=== PATIENT | male | born 1930 | race Caucasian/White ===

== ENCOUNTER 2016-12-01 15:55 | Emergency (ER) | payer BC ==
[~2016-12-01] VITALS: Ht 162.6 cm; Wt 64.5 kg
[~2016-12-01 15:55] MED LIST: ALBU0.08 INH; ASCA500 PO; ASPI81TA28 PO; CHOL100010 PO; DOXA4TAB2 PO; FLV400 PO; GABA1CAP4 PO; GANC0.15 OPL; GLC500 PO; GLUCTAB54 PO; HYDR-3419 PO; IPRAT-ALBUT INH; ISOS60TA25 PO; LCTX PO; LISI-729 PO; LPR25 PO; MOME50SP5; NTRGSL/4 UT; ONDA4TAB65 PO; S-AD1TAB6 PO; SIMV80TA2 PO; TOBRSUS OPL; TYLOTC500 PO; VALA1TAB31 PO
[2016-12-01 15:58] VITALS: TEMP 36.5; Ht 162.6 cm; Wt 64.5 kg
[2016-12-01 16:50] VITALS: O2SAT 94
[2016-12-01 17:00] LABS: BASO % 0.6 %; BASO ABS # 0.06 K/uL (0-0.2); COMPLETE YES; EOS % 4.2 %; IG% 0.2 %; LYMPH % 30.4 %; LYMPH ABS # 2.83 K/uL (1.2-3.4); MEAN CELL VOLUME 89.4 fL (80-100); MEAN CORPUSCULAR HEMOGLOBIN 32.1 pg (25-34); MEAN CORPUSCULAR HGB CONC 35.9 g/dl (32-36); MEAN PLATELET VOLUME 9.5 fL (7.4-10.4); MONO % 9.5 %; NEUT % 55.1 %; PLATELET COUNT 138 K/uL (130-400); RED BLOOD COUNT 4.92 M/uL (4.7-6.1); WHITE BLOOD COUNT 9.31 K/uL (4.8-10.8)
[2016-12-01 17:09] LABS: PROTHROMBIN TIME (PATIENT) 10.9 SECONDS (9.0-12.0)
--- NOTE | 2016-12-01 17:11 | EMERGENCY ROOM VISIT NOTE ---
History Report prepared by Jaswinder: Bill Persaud Under the Supervision of: Dr. Zane Patel D.O. First contact with patient: 16:27 Chief Complaint: REFERRED BY DOCTOR Stated Complaint: STROKE/HEART ATTACK History of Present Illness The patient is an 86 year old male who presents to the Emergency Room with complaints of intermittent double vision beginning one day prior to arrival. He states he is not currently experiencing diplopia, but his episodes yesterday last 5-10 minutes. The patient associates intermittent central chest pain that does not radiate anywhere with today's symptoms. He states he is currently not experiencing chest pain. The patient notes his double vision persisted even if he tried closing one eye or the other. He denies nausea, vomiting, headache, and neck pain. The patient notes a cough that is a pulmonary issue, a history of a colostomy for a perforation, bilateral cataract surgery, diabetes, hypertension, and heart disease. He states he has braces on his legs due to shrapnel injuries. The patient denies a history of clot problems in his legs or lungs and swelling and leg pain. 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 A total of 10 systems reviewed and were otherwise negative. 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 Surgical Problems: (1) History of cataract surgery Family History FHx: GI cancer Heart disease Social History Smoking Status: Former Smoker Marital Status: Occupation Status: retired Current/Historical Medications Scheduled Ascorbic Acid (Ascorbic Acid), 500 MG PO TID Aspirin (Aspirin Ec), 81 MG PO DAILY Cholecalciferol (Vitamin D3), 1,000 INTER.UNIT PO DAILY Doxazosin Mesylate (Cardura), 4 MG PO DAILY Dutasteride (Dutasteride), 0.5 MG PO DAILY Fish Oil ([place]-3), 1,000 MG PO TID Folic Acid (Folvite), 400 MCG PO DAILY Gabapentin (Gabapentin), 300 MG PO HS Zojcgcvnasz-Dxmhuqljmlg-Fhs C- (Glucosamine Chondroitin), 1 TAB PO BID Isosorbide Mononitrate Ext Rel (Imdur Ext Rel), 60 MG PO DAILY Lactobacillus Acidophilus (Lactinex), 1 TAB PO TIDM Lisinopril (Zestril), 5 MG PO DAILY Metoprolol Tartrate (Lopressor), 12.5 MG PO BID Multivitamin (Multivitamin), 1 TAB PO DAILY S-Adenosylmethionine (Héctor E), 400 MG PO QAM Simvastatin (Zocor), 40 MG PO QPM Tiotropium [place] Monohydrate (Spiriva Respimat), 1 PUFF INH DAILY Tobramycin-Dexamethasone (Tobradex St), 1 DROP OPL QID Valacyclovir Hcl (Valtrex), 1 GM PO TID Scheduled PRN Acetaminophen (Tylenol), 500 MG PO TID PRN for Pain or Fever Albuterol Sulf (Proventil 0.083% 2.5MG/3ML), 2.5 MG INH QID PRN for SOB/Wheezing Ganciclovir Ophthalmic (Zirgan), 1 APPLN OPL TID PRN for Dry Eye Mometasone Furoate (Nasal) (Mometasone Furoate), 2 SPRAYS NA DAILY PRN for Nasal Congestion Nitroglycerin (Nitrostat), 0.4 MG UT UD PRN for Chest Pain Allergies Coded Allergies: Opium (Verified Allergy, Unknown, unknown, 04/13/16) Morphine (Verified Adverse Reaction, Intermediate, CONFUSION, 04/13/16) Physical Exam Vital Signs Date Time Temp Pulse Resp B/P Pulse Ox O2 Delivery O2 Flow Rate FiO2 12/01/16 18:30 67 18 105/58 99 Room Air 12/01/16 17:10 66 12/01/16 17:00 68 18 129/76 97 Room Air 12/01/16 16:50 94 Room Air 12/01/16 16:50 94 Room Air 12/01/16 15:58 36.5 77 18 127/79 95 Room Air Physical Exam GENERAL: Patient is awake, alert, and in no acute distress. Patient is resting comfortably and showing no signs of anxiety EYES: The conjunctivae are clear. The pupils are round and reactive. No nystagmus elicited. EARS, NOSE, MOUTH AND THROAT: The nose is without any evidence of any deformity. Mucous membranes are moist tongue is midline NECK: The neck is nontender and supple. RESPIRATORY: Lung sounds diminished throughout. Scattered rales in all brantley. Mild conversational dyspnea was appreciated. CARDIOVASCULAR: Regular rate and rhythm noted there no murmurs rubs or gallops normal S1 normal S2 GASTROINTESTINAL: The abdomen is soft. Bowel sounds are present in all quadrants. Abdomen is nontender MUSCULOSKELETAL/EXTREMITIES: Braces on both lower extremities consistent with patient's previous history. No deformity. SKIN: Trace pedal edema noted bilaterally. Pulses were symmetric in both lower extremities. There is no obvious evidence of any rash. There are no petechiae, pallor or cyanosis noted. NEUROLOGIC: Patient is awake alert and oriented x3. No facial droop was noted. Strength was symmetric. Medical Decision & Procedures ER Provider Diagnostic Interpretation: Radiology results as stated below per my review and radiologist interpretation: CHEST 2 VIEWS ROUTINE CLINICAL HISTORY: Weakness. COMPARISON STUDY: Chest CT June 13, 2016. FINDINGS: There is no pneumothorax or pleural effusion. Mild cardiomegaly is unchanged. There is no evidence of pulmonary edema. Basilar and peripheral predominant interstitial thickening is noted. No consolidation is identified to suggest superimposed pneumonia. IMPRESSION: 1. No significant change in basilar and peripheral predominant interstitial thickening consistent with interstitial lung disease. This may reflect pulmonary fibrosis. 2. No superimposed consolidation. Electronically signed by: Kyle Quach M.D. 12/01/2016 5:[address] OF THE HEAD WITHOUT CONTRAST CLINICAL HISTORY: Altered mental status. Weakness. Possible stroke. COMPARISON STUDY: MRI of the brain August 10, 2010. CT DOSE: 537.48 mGy.cm TECHNIQUE: Helical axial images of the head were obtained without IV contrast. Automated exposure control was utilized for the study. FINDINGS: No acute intracranial hemorrhage, midline shift or mass effect is present. Ventricular system is normal. Basilar cisterns are patent. There are no extra-axial collections. 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 There are no findings to suggest acute dural sinus thrombosis or acute territorial infarct. White matter hypodensity suggests small vessel disease. There are no significant calvarial abnormalities. There is moderate mucosal thickening of the ethmoid sinuses. IMPRESSION: 1. No acute intracranial findings. 2. Moderate mucosal thickening of the ethmoid sinuses. Electronically signed by: Kyle Quach M.D. 12/01/2016 5:39 PM Laboratory Results 12/01/16 16:54 Red Blood Count 4.92, Mean Corpuscular Volume 89.4, Mean Corpuscular Hemoglobin 32.1, Mean Corpuscular Hemoglobin Concent 35.9, Mean Platelet Volume 9.5, Neutrophils (%) (Auto) 55.1, Lymphocytes (%) (Auto) 30.4, Monocytes (%) (Auto) 9.5, Eosinophils (%) (Auto) 4.2, Basophils (%) (Auto) 0.6, Neutrophils # (Auto) 5.13, Lymphocytes # (Auto) 2.83, Monocytes # (Auto) 0.88, Eosinophils # (Auto) 0.39, Basophils # (Auto) 0.06 12/01/16 16:54 Test 12/01/16 16:54 White Blood Count 9.31 K/uL (4.8-10.8) Red Blood Count 4.92 M/uL (4.7-6.1) Hemoglobin 15.8 g/dL (14.0-18.0) Hematocrit 44.0 % (42-52) Mean Corpuscular Volume 89.4 fL (80-100) Mean Corpuscular Hemoglobin 32.1 pg (25-34) Mean Corpuscular Hemoglobin Concent 35.9 g/dl (32-36) Platelet Count 138 K/uL (130-400) Mean Platelet Volume 9.5 fL (7.4-10.4) Neutrophils (%) (Auto) 55.1 % Lymphocytes (%) (Auto) 30.4 % Monocytes (%) (Auto) 9.5 % Eosinophils (%) (Auto) 4.2 % Basophils (%) (Auto) 0.6 % Neutrophils # (Auto) 5.13 K/uL (1.4-6.5) Lymphocytes # (Auto) 2.83 K/uL (1.2-3.4) Monocytes # (Auto) 0.88 K/uL (0.11-0.59) Eosinophils # (Auto) 0.39 K/uL (0-0.5) Basophils # (Auto) 0.06 K/uL (0-0.2) RDW Standard Deviation 40.4 fL (36.4-46.3) RDW Coefficient of Variation 12.5 % (11.5-14.5) Immature Granulocyte % (Auto) 0.2 % Immature Granulocyte # (Auto) 0.02 K/uL (0.00-0.02) Prothrombin Time 10.9 SECONDS (9.0-12.0) Prothromb Time International Ratio 1.0 (0.9-1.1) Activated Partial Thromboplast Time 25.5 SECONDS (21.0-31.0) Partial Thromboplastin Ratio 1.0 Anion Gap 9.0 mmol/L (3-11) Est Creatinine Clear Calc Drug Dose 37.7 ml/min Estimated GFR () 63.5 Estimated GFR (Non- 54.8 BUN/Creatinine Ratio 22.2 (10-20) Calcium Level 10.1 mg/dl (8.5-10.1) Phosphorus Level 2.6 mg/dl (2.5-4.9) Magnesium Level 2.0 mg/dl (1.8-2.4) Total Bilirubin 0.5 mg/dl (0.2-1) Direct Bilirubin 0.2 mg/dl (0-0.2) Aspartate Amino Transf (AST/SGOT) 20 U/L (15-37) Alanine Aminotransferase (ALT/SGPT) 29 U/L (12-78) Alkaline Phosphatase 65 U/L (45-117) Troponin I < 0.015 ng/ml (0-0.045) Pro-B-Type Natriuretic Peptide 123 pg/ml (0-1800) Total Protein 7.2 gm/dl (6.4-8.2) Albumin 3.5 gm/dl (3.4-5.0) Lipase 340 U/L (73-393) Laboratory results per my review. ECG Indication: other (double vision) Rate (beats per minute): 65 Rhythm: sinus rhythm Findings: 1st degree AV block, LBBB, PVC (no) Comparison ECG Date: 03/27/2011 Change: no significant change ED Course 1631: The patient was evaluated in room B11B. A complete history and physical examination were performed. 1830: Upon reevaluation, the patient is doing well. I discussed the results and treatment plan with him. He verbalized agreement of the treatment plan. The patient was discharged home. Medical Decision Etiologies such as metabolic, infection, hypo/hyperglycemia, electrolyte abnormalities, cardiac sources, intracerebral event, toxicologic, neurologic, as well as others were entertained. Nursing notes reviewed. Additional history is obtained from the patient's significant other. The patient is an 86-year-old male who presented to emergency department for an evaluation of visual difficulties. The patient has been noticing double vision as well as blurry vision which is been intermittent over the last few weeks. The patient saw his primary care physician today and was sent to the emergency department for stroke workup. The patient does not have any symptoms at this time. His CAT scan did not show any acute abnormalities which would explain his symptoms. I discussed the patient's laboratory and radiographic studies with him. He continued to be symptom-free. He was encouraged to call his primary care physician and schedule follow-up appointment as well as other testing such as an MRI the brain. He was also encouraged to continue all medications as prescribed but return to the emergency department immediately if symptoms change worsen or the need arises. Impression Primary Impression: Diplopia Scribe Attestation The scribe's documentation has been prepared under my direction and personally reviewed by me in its entirety. I confirm that the note above accurately reflects all work, treatment, procedures, and medical decision making performed by me. Departure Information Dispostion Home / Self-Care Referrals Amanda Newell M.D. (PCP) Forms HOME CARE DOCUMENTATION FORM, IMPORTANT VISIT INFORMATION, WORK / SCHOOL INSTRUCTIONS Patient Instructions ED Double Vision, My [facility] Additional Instructions Call your family to schedule a follow-up appointment. Rest and avoid any strenuous activity. Continue all medications as prescribed. Return to the emergency department immediately if signs of stroke develop such as difficulty speaking severe headache or difficulty moving arms or legs on one side. Otherwise discussed the possibility with your family doctor in the may require an MRI to further evaluate the cause of your visual problems.
[2016-12-01 17:32] LABS: ALT/SGPT 29 U/L (12-78); AST/SGOT 20 U/L (15-37); BLOOD UREA NITROGEN 27 mg/dl (7-18); BUN/CREATININE RATIO 22.2 (10-20); CALCIUM 10.1 mg/dl (8.5-10.1); CARBON DIOXIDE 25 mmol/L (21-32); CHLORIDE 105 mmol/L (98-107); GLUCOSE 225 mg/dl (70-99); PHOSPHORUS 2.6 mg/dl (2.5-4.9); POTASSIUM 4.2 mmol/L (3.5-5.1); SODIUM 139 mmol/L (136-145)
[2016-12-01 17:36] LABS: ALKALINE PHOSPHATASE 65 U/L (45-117)
--- NOTE | 2016-12-01 17:43 | DIAGNOSTIC IMAGING REPORT ---
CT OF THE HEAD WITHOUT CONTRAST CLINICAL HISTORY: Altered mental status. Weakness. Possible stroke. COMPARISON STUDY: MRI of the brain August 10, 2010. CT DOSE: 537.48 mGy.cm TECHNIQUE: Helical axial images of the head were obtained without IV contrast. Automated exposure control was utilized for the study. FINDINGS: No acute intracranial hemorrhage, midline shift or mass effect is present. Ventricular system is normal. Basilar cisterns are patent. There are no extra-axial collections. 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 There are no findings to suggest acute dural sinus thrombosis or acute territorial infarct. White matter hypodensity suggests small vessel disease. There are no significant calvarial abnormalities. There is moderate mucosal thickening of the ethmoid sinuses. IMPRESSION: 1. No acute intracranial findings. 2. Moderate mucosal thickening of the ethmoid sinuses. Electronically signed by: Kyle Quach M.D. 12/01/2016 5:39 PM Dictated Date/Time: 12/01/2016 5:35 PM
--- NOTE | 2016-12-01 17:55 | DIAGNOSTIC IMAGING REPORT ---
CHEST 2 VIEWS ROUTINE CLINICAL HISTORY: Weakness. COMPARISON STUDY: Chest CT June 13, 2016. FINDINGS: There is no pneumothorax or pleural effusion. Mild cardiomegaly is unchanged. There is no evidence of pulmonary edema. Basilar and peripheral predominant interstitial thickening is noted. No consolidation is identified to suggest superimposed pneumonia. IMPRESSION: 1. No significant change in basilar and peripheral predominant interstitial thickening consistent with interstitial lung disease. This may reflect pulmonary fibrosis. 2. No superimposed consolidation. Electronically signed by: Kyle Quach M.D. 12/01/2016 5:53 PM Dictated Date/Time: 12/01/2016 5:52 PM
[2016-12-01] MEDS ORDERED: MOME6000 (17:58)
[2016-12-01] MEDS ORDERED: GLUCTAB7 PO (17:58)
[2016-12-01] MEDS ORDERED: ALBINS/ INH (17:58)
[2016-12-01] MEDS ORDERED: DUTA1CAP3 PO (17:58)
[2016-12-01] MEDS ORDERED: FOLI400T41 PO (17:58)
[2016-12-01] MEDS ORDERED: TIOT1AER2 INH (17:58)
[2016-12-01] MEDS ORDERED: CHOL1CAP57 PO (17:58)
[2016-12-01] MEDS ORDERED: ASCO500T16 PO (17:58)
[2016-12-01] MEDS ORDERED: GANC0.15 OPL (17:59)
[2016-12-01 18:30] VITALS: BP 105/58; PULSE 67; O2SAT 99
[2016-12-01] MEDS ORDERED: MULT-506 PO (20:28)
[2016-12-01] MEDS ORDERED: OMEG10007 PO (20:28)
== END 2016-12-01 18:40 | disposition home or self-care (01) ==
LOC: C.EDB 15:56
DX: H53.2 Diplopia (principal); R07.9 Chest pain, unspecified; I48.91 Unspecified atrial fibrillation; I11.9 Hypertensive heart disease without heart failure; E11.40 Type 2 diabetes mellitus with diabetic neuropathy, unspecified; E78.5 Hyperlipidemia, unspecified; Z79.899 Other long term (current) drug therapy; Z79.82 Long term (current) use of aspirin; Z87.891 Personal history of nicotine dependence; Z80.0 Family history of malignant neoplasm of digestive organs; Z82.49 Family history of ischemic heart disease and other diseases of the circulatory system

== ENCOUNTER → 2016-12-15 | Outpatient (CLI) | payer BC ==
[~2016-12-15] MED LIST changes: +ALBINS/ INH; -ALBU0.08 INH; -ASCA500 PO; +ASCO500T16 PO; -CHOL100010 PO; +CHOL1CAP57 PO; +DUTA1CAP3 PO; -FLV400 PO; +FOLI400T41 PO; +GADAVIST IV PRN; -GLC500 PO; -GLUCTAB54 PO; +GLUCTAB7 PO; -HYDR-3419 PO; -IPRAT-ALBUT INH; +LISI-789 PO; +LNX125 PO; +MAGN400T5 PO; -MOME50SP5; +MOME6000; +MULT-506 PO; +OMEG10007 PO; -ONDA4TAB65 PO; +TIOT1AER2 INH
--- NOTE | 2016-12-15 13:56 | DIAGNOSTIC IMAGING REPORT ---
Brain MRI WITH AND WITHOUT CONTRAST HISTORY: Dizziness. DIPLOPIA TECHNIQUE: Multiplanar multisequence MRI of the brain was performed both before and after the intravenous administration of contrast. COMPARISON STUDY: Head CT 12/01/2016. Brain MRI 08/10/2010. FINDINGS: There is no mass, hematoma, midline shift, or acute infarct. Partial opacification of the ethmoid air cells. This remains unchanged in the prior head CT. The mastoid or cells are clear. The ventricles and sulci demonstrate mild age-related involutional changes. Scattered foci of T2 hyperintensity seen within the periventricular and subcortical white matter are nonspecific but suggestive of mild microvascular ischemic changes. The major vascular flow voids at the skull base are well-maintained. There is a 3 mm focus of enhancement within the cortex of the right high convexity. No abnormal signal abnormality at this location. Punctate old lacunar infarcts seen within the left cerebellar hemisphere and right basal ganglia. These remain unchanged. IMPRESSION: 1. No acute infarct. 2. A nonspecific 3 mm focus of enhancement within the right high convexity. Follow-up brain MRI in one month is recommended to evaluate for stability/resolution. 3. Ethmoid sinus disease, unchanged. Electronically signed by: Torin Avendaño M.D. 12/15/2016 1:54 PM Dictated Date/Time: 12/15/2016 1:43 PM
== END | disposition home or self-care (01) ==
LOC: C.MRIBC 12:27
PROVIDERS: ATTEND Family Medicine
DX: H53.2 Diplopia (principal); J32.2 Chronic ethmoidal sinusitis

== ENCOUNTER → 2016-12-25 | Outpatient (CLI) | payer BC ==
[~2016-12-25] MED LIST changes: -GADAVIST IV PRN
--- NOTE | 2016-12-25 16:42 | DIAGNOSTIC IMAGING REPORT ---
MR ANGIOGRAM OF THE BRAIN CLINICAL HISTORY: Diplopia. COMPARISON STUDY: MRI of the brain dated 12/15/2016. TECHNIQUE: 3-D [id number] MR angiography of the intracranial circulation is performed. 3-D tumble views are created and assessed. IV contrast was not administered for this examination. FINDINGS: The internal carotid arteries are widely patent bilaterally, as are the anterior and middle cerebral arteries. The vertebrobasilar system and posterior cerebral arteries are widely patent. The vertebral arteries are codominant. There is no aneurysm, high-grade stenosis, or focal vessel cutoff seen throughout the intracranial circulation. The brain parenchyma is normal as visualized. IMPRESSION: Unremarkable MR angiogram of the brain. Electronically signed by: José Miguel Yanez M.D. 12/25/2016 4:41 PM Dictated Date/Time: 12/25/2016 4:39 PM
--- NOTE | 2016-12-29 13:18 | CODING QUERY MEDICAL NECESSITY ---
SUPPORTING DIAGNOSIS NEEDED A supporting diagnosis is required for the test/procedure performed on this patient in order for us to be reimbursed by the patient's insurance. Please provide a supporting diagnosis for the following test/procedure listed below next to the test name along with your signature. *If there is no additional diagnosis for this patient that would support the following test/procedure please document that below next to the test/procedure. Test(s)/Procedure(s) that require a supporting diagnosis: * MRA HEAD W/O CONTRAST DIAGNOSIS: * DOS: 12/25/16 Provider Signature: Date: Thank you Coby Birch Health Information Management Once completed, please kindly fax back to [phone] For questions please call [phone]
== END | disposition home or self-care (01) ==
LOC: C.MRIBC 14:53
PROVIDERS: ATTEND Family Medicine
DX: H53.2 Diplopia (principal)

== ENCOUNTER → 2017-01-12 | Outpatient (CLI) | payer BC ==
[~2017-01-12] MED LIST changes: +GADAVIST IV PRN
--- NOTE | 2017-01-12 12:47 | DIAGNOSTIC IMAGING REPORT ---
MRI OF THE BRAIN WITHOUT AND WITH IV CONTRAST CLINICAL HISTORY: ABNORMAL BRAIN MRI DIZZINESS, DIPLOPIA. COMPARISON STUDY: 12/15/2016 TECHNIQUE: MRI of the brain was performed from the vertex to the skull base utilizing various T1 and T2 weighted sequences. Following the IV administration of 5.5 mL of Gadavist contrast, additional enhanced images were obtained. FINDINGS: Sagittal T1, axial diffusion, proton density and T2 weighted axial, coronal FLAIR, and pre and post axial T1-weighted images were acquired. These were supplemented with post gadolinium coronal T1 weighted images. No intra or extra-axial mass lesions are visualized. Axial diffusion-weighted images reveal no evidence of acute or subacute infarction. There is no evidence of ventricular dilatation. Proton density T2-weighted and FLAIR images reveal scattered foci of increased T2 signal within the white matter, likely on a small vessel basis. There are no abnormal flow voids. The previously described focus of enhancement within the high right convexity has decreased in size, and currently measures 1.3 mm. Further follow-up is not felt to be indicated. IMPRESSION: 1. No evidence of intracranial mass 2. No evidence of acute or subacute infarction 3. Interval decrease in a punctate 1.3 mm focus of enhancement involving the high right parietal convexity. This finding is of doubtful acute clinical significance. Further follow-up is not felt to be indicated. Electronically signed by: lCem Siddiqi M.D. 01/12/2017 12:46 PM Dictated Date/Time: 01/12/2017 12:41 PM
== END | disposition home or self-care (01) ==
LOC: C.MRIBC 11:20
PROVIDERS: ATTEND Psychiatry & Neurology Neurology
DX: R90.89 Other abnormal findings on diagnostic imaging of central nervous system (principal)

== ENCOUNTER → 2017-01-25 | Outpatient (CLI) | payer BC ==
[~2017-01-25] MED LIST changes: -GADAVIST IV PRN
--- NOTE | 2017-01-25 15:44 | DIAGNOSTIC IMAGING REPORT ---
CHEST CT WITHOUT CONTRAST CT DOSE: 200.32 mGy.cm HISTORY: R91.1 Pulmonary [id number] Interstitial pulmonary disease, unsp TECHNIQUE: Multiaxial CT images of the chest were performed without contrast. COMPARISON: Chest CT 06/13/2016. FINDINGS: No enlarged axillary, mediastinal or hilar lymph nodes are present. The central airways are patent. There is basilar and peripheral predominant subpleural reticulation with groundglass opacities and traction bronchiectasis. There is also peripheral honeycombing. Findings are similar to the prior study. There are no areas of new consolidation to suggest superimposed pneumonia. There is no pneumothorax or pleural effusion. A suspected 3.5 cm cyst within the upper pole of the left kidney. IMPRESSION: Basilar and peripheral predominant subpleural reticulation, traction bronchiectasis and honeycombing. 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 Overall, no significant change. Electronically signed by: Torin Avendaño M.D. 01/25/2017 3:42 PM Dictated Date/Time: 01/25/2017 3:35 PM
== END | disposition home or self-care (01) ==
LOC: C.CTS 14:56
PROVIDERS: ATTEND Surgery
DX: J84.9 Interstitial pulmonary disease, unspecified (principal); R91.1 Solitary pulmonary nodule; R91.8 Other nonspecific abnormal finding of lung field

== ENCOUNTER 2017-03-18 07:17 | Inpatient (IN) | payer BC, OTHER ==
[~2017-03-18] VITALS: Ht 170.2 cm; Wt 57.3 kg
[~2017-03-18 07:17] MED LIST changes: -LISI-789 PO; -LNX125 PO; -MAGN400T5 PO
[2017-03-18] MEDS ORDERED: SODIUM CHLORIDE 0.9% 500ML 500 ML IV STA (07:27)
--- NOTE | 2017-03-18 07:35 | EMERGENCY ROOM VISIT NOTE ---
History Report prepared by Jaswinder: Elías Izaguirre Under the Supervision of: Dr. Edmar Wang M.D. First contact with patient: 07:20 Stated Complaint: VOMITING History of Present Illness The patient is an 86 year old male who presents to the Emergency Room via ambulance with complaints of an episode of vomiting that occurred at 0600 this morning. The patient notes that the vomit was black. The patient had abdominal pain starting last night that improved when he vomited this morning. His abdomen now only hurts when he pushes on it. He is not currently nauseous. The patient has an ostomy and notes that the bag was empty this morning, which " does not always happen." The patient's stool was not black or bloody prior to emptying the bag last night. He states that he is on blood thinners but "not Coumadin because he falls too frequently." He has shortness of breath at baseline which has not worsened. He also has a chronic cough. The patient denies any history of kidney disease. Source of History: patient Onset: 0600 this morning Position: other (GI) Quality: other (vomiting black) Timing: other (one episode) Associated Symptoms: + abdominal pain, No SOB, No cough, No hematochezia, No melena, No nausea Review of Systems See HPI for pertinent positives & negatives. A total of 10 systems reviewed and were otherwise negative. 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 Surgical Problems: (1) History of cataract surgery Family History FHx: GI cancer Heart disease Social History Smoking Status: Former Smoker Marital Status: Occupation Status: retired Current/Historical Medications Scheduled Ascorbic Acid (Ascorbic Acid), 500 MG PO TID Aspirin (Aspirin Ec), 81 MG PO DAILY Cholecalciferol (Vitamin D3), 1,000 INTER.UNIT PO DAILY Digoxin (Digoxin), 1 TAB PO DAILY@1600 Doxazosin Mesylate (Cardura), 4 MG PO DAILY Dutasteride (Dutasteride), 0.5 MG PO DAILY Fish Oil ([place]-3), 1,000 MG PO TID Folic Acid (Folvite), 400 MCG PO DAILY Gabapentin (Gabapentin), 300 MG PO HS Bqgujbxbqqe-Wggxnamehzi-Mlq C- (Glucosamine Chondroitin), 1 TAB PO BID Isosorbide Mononitrate Ext Rel (Imdur Ext Rel), 60 MG PO DAILY Lactobacillus Acidophilus (Lactinex), 1 TAB PO TIDM Lisinopril (Zestril), 1 TAB PO DAILY Magnesium Oxide (Mag-Ox), 800 MG PO DAILY Metoprolol Tartrate (Lopressor), 12.5 MG PO BID Multivitamin (Multivitamin), 1 TAB PO DAILY S-Adenosylmethionine (Héctor E), 400 MG PO QAM Simvastatin (Zocor), 40 MG PO QPM Tiotropium [place] Monohydrate (Spiriva Respimat), 1 PUFF INH DAILY Tobramycin-Dexamethasone (Tobradex St), 1 DROP OPL BID Valacyclovir Hcl (Valtrex), 1 GM PO BID Scheduled PRN Acetaminophen (Tylenol), 500 MG PO TID PRN for Pain or Fever Albuterol Sulf (Proventil 0.083% 2.5MG/3ML), 2.5 MG INH QID PRN for SOB/Wheezing Ganciclovir Ophthalmic (Zirgan), 1 APPLN OPL BID PRN for Dry Eye Mometasone Furoate (Nasal) (Mometasone Furoate), 2 SPRAYS NA DAILY PRN for Nasal Congestion Nitroglycerin (Nitrostat), 0.4 MG UT UD PRN for Chest Pain Allergies Coded Allergies: Opium (Verified Allergy, Unknown, unknown, 03/18/17) Morphine (Verified Adverse Reaction, Intermediate, CONFUSION, 03/18/17) Physical Exam Vital Signs Date Time Temp Pulse Resp B/P Pulse Ox O2 Delivery O2 Flow Rate FiO2 03/18/17 08:38 90 03/18/17 07:26 36.8 106 18 144/96 94 Room Air Physical Exam GENERAL: Patient is dehydrated appearing and in no acute distress. HEENT: No acute trauma, normocephalic atraumatic, mucous membranes are dry, no nasal congestion, no scleral icterus. NECK: No stridor, no adenopathy, no meningismus, trachea is midline. LUNGS: No dyspnea. Clear to auscultation and equal bilaterally. No wheeze, no rhonchi. HEART: Tachycardic regular rhythm. No murmurs, rubs, gallops appreciated. ABDOMEN: Soft, mild diffuse tenderness, bowel sounds are hyperactive, no masses appreciated, no peritonitis, no bowel outs. BACK: No midline tenderness, no CVA tenderness EXTREMITIES: Normal motion all extremities, no cyanosis, no edema. NEUROLOGIC: Alert and oriented, no acute motor or sensory deficits, no focal weakness, cranial nerves grossly intact. SKIN: No rash, no jaundice, no diaphoresis. Medical Decision & Procedures ER Provider Diagnostic Interpretation: X ray results are stated below per my interpretation and the radiologist's interpretation. Radiology results and stated below per my review and radiologist interpretation: CT OF THE ABDOMEN AND PELVIS WITHOUT CONTRAST, STONE PROTOCOL CLINICAL HISTORY: Diffuse abdominal pain, nausea and vomiting. COMPARISON STUDY: CT of the abdomen and pelvis April 06, 2011. TECHNIQUE: Helical axial images of the abdomen and pelvis were obtained without IV or oral contrast according to renal stone protocol. FINDINGS: Visualized portions of the lower chest demonstrate moderate cardiomegaly. Traction bronchiectasis and subpleural reticulation flexed chronic interstitial lung disease. There is no pneumatosis, free air or portal venous gas. Evaluation of the abdomen and pelvis is suboptimal given the lack of IV and oral contrast. There are bilateral renal calculi which measure up to 5 mm. There are no ureteral calculi. There is no hydronephrosis. Unenhanced images of liver, spleen, adrenal glands and pancreas are unremarkable. 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 There is pancolonic diverticulosis without evidence for acute diverticulitis. The proximal to mid small bowel is fluid-filled and mildly dilated. There is a small bowel feces sign with transition point within the anterior aspect of the mid pelvis shown on axial image 321 of 436. This reflects a transition point. Distal small bowel is decompressed. There is no lymphadenopathy. IMPRESSION: 1. Findings consistent with a partial small bowel obstruction with transition point within the mid ileum within the anterior pelvis. Small bowel feces sign with mild upstream fluid-filled dilated small bowel and decompressed distal small bowel. Trace associated ascites. No pneumatosis, free air or portal venous gas. 2. Bilateral nephrolithiasis. No ureteral calculi or hydronephrosis. 3. Multiple bilateral renal lesions. These are suboptimally assessed on this unenhanced exam but measure water attenuation and likely reflect cysts. Electronically signed by: Kyle Quach M.D. 03/18/2017 8:05 AM Dictated Date/Time: 03/18/2017 7:56 AM KUB CLINICAL HISTORY: NG tube placement COMPARISON STUDY: CT of the abdomen and pelvis March 18, 2017. FINDINGS: The tip of the nasogastric tube is within the body of the stomach. Bilateral renal calculi are noted there are pelvic surgical clips. IMPRESSION: Tip of nasogastric tube within the body of the stomach. Electronically signed by: Kyle Quach M.D. 03/18/2017 9:21 AM Dictated Date/Time: 03/18/2017 9:20 AM Laboratory Results 03/18/17 07:30 Red Blood Count 5.62, Mean Corpuscular Volume 91.3, Mean Corpuscular Hemoglobin 31.9, Mean Corpuscular Hemoglobin Concent 34.9, Mean Platelet Volume 9.2, Neutrophils (%) (Auto) 79.3, Lymphocytes (%) (Auto) 13.4, Monocytes (%) (Auto) 6.7, Eosinophils (%) (Auto) 0.2, Basophils (%) (Auto) 0.2, Neutrophils # (Auto) 10.35, Lymphocytes # (Auto) 1.74, Monocytes # (Auto) 0.87, Eosinophils # (Auto) 0.02, Basophils # (Auto) 0.02 03/18/17 07:30 Test 03/18/17 07:30 White Blood Count 13.03 K/uL (4.8-10.8) Red Blood Count 5.62 M/uL (4.7-6.1) Hemoglobin 17.9 g/dL (14.0-18.0) Hematocrit 51.3 % (42-52) Mean Corpuscular Volume 91.3 fL (80-100) Mean Corpuscular Hemoglobin 31.9 pg (25-34) Mean Corpuscular Hemoglobin Concent 34.9 g/dl (32-36) Platelet Count 171 K/uL (130-400) Mean Platelet Volume 9.2 fL (7.4-10.4) Neutrophils (%) (Auto) 79.3 % Lymphocytes (%) (Auto) 13.4 % Monocytes (%) (Auto) 6.7 % Eosinophils (%) (Auto) 0.2 % Basophils (%) (Auto) 0.2 % Neutrophils # (Auto) 10.35 K/uL (1.4-6.5) Lymphocytes # (Auto) 1.74 K/uL (1.2-3.4) Monocytes # (Auto) 0.87 K/uL (0.11-0.59) Eosinophils # (Auto) 0.02 K/uL (0-0.5) Basophils # (Auto) 0.02 K/uL (0-0.2) RDW Standard Deviation 41.9 fL (36.4-46.3) RDW Coefficient of Variation 12.5 % (11.5-14.5) Immature Granulocyte % (Auto) 0.2 % Immature Granulocyte # (Auto) 0.03 K/uL (0.00-0.02) Anion Gap 12.0 mmol/L (3-11) Est Creatinine Clear Calc Drug Dose 30.1 ml/min Estimated GFR () 44.9 Estimated GFR (Non- 38.7 BUN/Creatinine Ratio 17.9 (10-20) Calcium Level 11.2 mg/dl (8.5-10.1) Total Bilirubin 1.7 mg/dl (0.2-1) Direct Bilirubin 0.3 mg/dl (0-0.2) Aspartate Amino Transf (AST/SGOT) 22 U/L (15-37) Alanine Aminotransferase (ALT/SGPT) 31 U/L (12-78) Alkaline Phosphatase 67 U/L (45-117) Total Protein 8.1 gm/dl (6.4-8.2) Albumin 3.9 gm/dl (3.4-5.0) Lipase 146 U/L (73-393) Laboratory results as reviewed by me. Medications Administered Medications (Trade) Dose Ordered Sig/Loyda Route Start Time Stop Time Status Last Admin Dose Admin Sodium Chloride (Nss 500ml) 500 ml @ 999 mls/hr Q31M STAT IV 03/18/17 07:27 03/18/17 07:57 DC 03/18/17 08:05 999 MLS/HR ED Course 0722: The patient was evaluated in room B7. A complete history and physical exam was performed. 0727: NSS 500 ml @ 999 mls/hr. 0815: The patient is feeling alright. I discussed the findings with him and he is willing to stay in the hospital. Dr. Bolanos is being paged. 0510: Discussed the case with Dr. Bolanos, General Surgery. He is aware of the case. Internal Medicine is being paged. 0845: Discussed the case with LEROY Taylor Hospitalist. The patient will be evaluated. 1000: D5w and 1/2 NSS IV ordered per hospitalist request. Medical Decision Differential: Gastroenteritis, Food Borne, Esophageal Perforation, , Electrolyte Abnormality, Dehydration, Intraabdominal Infection, UTI/ Pyelonephritis, Bowel Obstruction, Biliary Pathology, amongst other pathology entertained. 86 yr old male arrives with complaint of vomiting and abdominal pain. Feeling much improved on arrival as had vomited at home. Exam and history consistent with obstruction though given complex surgical history went ahead with CT confirming obstruction. His exam is not consistent with incarceration/ ischemia. Labs with mild wbc elevation though no clear evidence of infectious etiology. Stable, breathing comfortable with non-surgical abdominal exam. Gen Surg aware and will bring in to hospitalist for further evaluation/treatment. Consults Time Called: 0815 Consulting Physician: Dr. Bolanos, General Surgery Returned Call: 0836 He is aware of the case Additional Consults: Time Called: 0836 Consulted Physician: LEROY Taylor Hospitalist. Returned Call: 0845 Additional Comments: The patient will be evaluated. Impression Primary Impression: Small bowel obstruction Scribe Attestation The scribe's documentation has been prepared under my direction and personally reviewed by me in its entirety. I confirm that the note above accurately reflects all work, treatment, procedures, and medical decision making performed by me. Departure Information Dispostion Being Evaluated By Hospitalist Referrals Amanda Newell M.D. (PCP)
[2017-03-18 07:44] LABS: HEMATOCRIT 51.3 % (42-52); MEAN CELL VOLUME 91.3 fL (80-100); MEAN CORPUSCULAR HEMOGLOBIN 31.9 pg (25-34); MEAN CORPUSCULAR HGB CONC 34.9 g/dl (32-36); MEAN PLATELET VOLUME 9.2 fL (7.4-10.4); PLATELET COUNT 171 K/uL (130-400); RED BLOOD COUNT 5.62 M/uL (4.7-6.1); WHITE BLOOD COUNT 13.03 K/uL (4.8-10.8)
[2017-03-18 08:03] LABS: BUN/CREATININE RATIO 17.9 (10-20); CREATININE 1.6 mg/dl (0.60-1.40); POTASSIUM 4.5 mmol/L (3.5-5.1)
--- NOTE | 2017-03-18 08:06 | DIAGNOSTIC IMAGING REPORT ---
CT OF THE ABDOMEN AND PELVIS WITHOUT CONTRAST, STONE PROTOCOL CLINICAL HISTORY: Diffuse abdominal pain, nausea and vomiting. COMPARISON STUDY: CT of the abdomen and pelvis April 06, 2011. TECHNIQUE: Helical axial images of the abdomen and pelvis were obtained without IV or oral contrast according to renal stone protocol. FINDINGS: Visualized portions of the lower chest demonstrate moderate cardiomegaly. Traction bronchiectasis and subpleural reticulation flexed chronic interstitial lung disease. There is no pneumatosis, free air or portal venous gas. Evaluation of the abdomen and pelvis is suboptimal given the lack of IV and oral contrast. There are bilateral renal calculi which measure up to 5 mm. There are no ureteral calculi. There is no hydronephrosis. Unenhanced images of liver, spleen, adrenal glands and pancreas are unremarkable. 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 There is pancolonic diverticulosis without evidence for acute diverticulitis. The proximal to mid small bowel is fluid-filled and mildly dilated. There is a small bowel feces sign with transition point within the anterior aspect of the mid pelvis shown on axial image 321 of 436. This reflects a transition point. Distal small bowel is decompressed. There is no lymphadenopathy. IMPRESSION: 1. Findings consistent with a partial small bowel obstruction with transition point within the mid ileum within the anterior pelvis. Small bowel feces sign with mild upstream fluid-filled dilated small bowel and decompressed distal small bowel. Trace associated ascites. No pneumatosis, free air or portal venous gas. 2. Bilateral nephrolithiasis. No ureteral calculi or hydronephrosis. 3. Multiple bilateral renal lesions. These are suboptimally assessed on this unenhanced exam but measure water attenuation and likely reflect cysts. Electronically signed by: Kyle Quach M.D. 03/18/2017 8:05 AM Dictated Date/Time: 03/18/2017 7:56 AM
[2017-03-18 08:07] LABS: BASO % 0.2 %; BASO ABS # 0.02 K/uL (0-0.2); COMPLETE YES; EOS % 0.2 %; IG% 0.2 %; LYMPH % 13.4 %; LYMPH ABS # 1.74 K/uL (1.2-3.4); MONO % 6.7 %; NEUT % 79.3 %
[2017-03-18] MEDS ORDERED: LNX125 PO (08:12)
[2017-03-18] MEDS ORDERED: MAGN400T5 PO (08:12)
[2017-03-18] MEDS ORDERED: LISI-789 PO (08:12)
[2017-03-18 08:17] LABS: CALCIUM 11.2 mg/dl (8.5-10.1)
--- NOTE | 2017-03-18 09:22 | DIAGNOSTIC IMAGING REPORT ---
KUB CLINICAL HISTORY: NG tube placement COMPARISON STUDY: CT of the abdomen and pelvis March 18, 2017. FINDINGS: The tip of the nasogastric tube is within the body of the stomach. Bilateral renal calculi are noted there are pelvic surgical clips. IMPRESSION: Tip of nasogastric tube within the body of the stomach. Electronically signed by: Klye Quach M.D. 03/18/2017 9:21 AM Dictated Date/Time: 03/18/2017 9:20 AM
--- NOTE | 2017-03-18 09:30 | History and Physical ---
History & Physical Date & Time of Service: March 18, 2017 at 09:17 Chief Complaint: Vomiting Primary Care Physician: Amanda Newell M.D. History of Present Illness 86 y/o male h/o colectomy w/ transverse ostomy presents with 12 hours of persistent nausea/vomiting of black/feculent vomitus. States that he was feeling fine until approx 1800 on 03.17.17 when the vomiting started. He emptied his ostomy shortly thereafter and it has had minimal output since then. He reports distended, bloated abdomen with generalized discomfort which resolved w / vomiting and is significantly improved in the ED following NGT placement. History of similar episodes in the past which have required admission, decompression and nonsurgical manipulation. Procedure originally done by Dr. oBlanos, consulted. Reports no fever, chills, GILLIS, lightheadedness, vision/hearing changes, CP/SOB, palpitations, leg swelling, rashes. Past Medical/Surgical History Surgical Problems: (1) History of cataract surgery Status: Resolved COLECTOMY w/ OSTOMY TUMOR of the NECK w/ TRACHEOSTOMY (remote) Medical Hx: Atrial fibrillation (not presently on AC 2/2 fall risk, HTN, HLD, DMII w/ neuropathy (last A1c 9 months ago 6.7), BPH, h/o TIA Family History FHx: GI cancer Heart disease Social History Smoking Status: Former Smoker (quit in 1960s) Smokeless Tobacco Use: No Alcohol Use: none Drug Use: none Marital Status: Housing status: lives with family Occupational Status: retired Immunizations History of Influenza Vaccine: Yes History of Tetanus Vaccine?: Yes History of Pneumococcal: Yes History of Hepatitis B Vaccine: Unknown Multi-Drug Resistant Organisms History of MDRO: No Allergies Coded Allergies: Opium (Verified Allergy, Unknown, unknown, 03/18/17) Morphine (Verified Adverse Reaction, Intermediate, CONFUSION, 03/18/17) Home Medications Scheduled Ascorbic Acid (Ascorbic Acid), 500 MG PO TID Aspirin (Aspirin Ec), 81 MG PO DAILY Cholecalciferol (Vitamin D3), 1,000 INTER.UNIT PO DAILY Digoxin (Digoxin), 1 TAB PO DAILY@1600 Doxazosin Mesylate (Cardura), 4 MG PO DAILY Dutasteride (Dutasteride), 0.5 MG PO DAILY Fish Oil ([place]-3), 1,000 MG PO TID Folic Acid (Folvite), 400 MCG PO DAILY Gabapentin (Gabapentin), 300 MG PO HS Ctnafruohyc-Sznpemxhsjh-Uyv C- (Glucosamine Chondroitin), 1 TAB PO BID Isosorbide Mononitrate Ext Rel (Imdur Ext Rel), 60 MG PO DAILY Lactobacillus Acidophilus (Lactinex), 1 TAB PO TIDM Lisinopril (Zestril), 1 TAB PO DAILY Magnesium Oxide (Mag-Ox), 800 MG PO DAILY Metoprolol Tartrate (Lopressor), 12.5 MG PO BID Multivitamin (Multivitamin), 1 TAB PO DAILY S-Adenosylmethionine (Héctor E), 400 MG PO QAM Simvastatin (Zocor), 40 MG PO QPM Tiotropium [place] Monohydrate (Spiriva Respimat), 1 PUFF INH DAILY Tobramycin-Dexamethasone (Tobradex St), 1 DROP OPL BID Valacyclovir Hcl (Valtrex), 1 GM PO BID Scheduled PRN Acetaminophen (Tylenol), 500 MG PO TID PRN for Pain or Fever Albuterol Sulf (Proventil 0.083% 2.5MG/3ML), 2.5 MG INH QID PRN for SOB/Wheezing Ganciclovir Ophthalmic (Zirgan), 1 APPLN OPL BID PRN for Dry Eye Mometasone Furoate (Nasal) (Mometasone Furoate), 2 SPRAYS NA DAILY PRN for Nasal Congestion Nitroglycerin (Nitrostat), 0.4 MG UT UD PRN for Chest Pain Review of Systems Constitutional: No chills, No fever, No sweats Eyes: No discharge, No redness, No worsening of vision ENT: No nasal symptoms, No sore throat, No unusual epistaxis Respiratory: No cough, No shortness of breath, No wheezing Cardiovascular: No chest pain, No claudication, No palpitations Abdomen: + nausea, + pain, + vomiting, No constipation, No diarrhea Genitourinary - Male: No dysuria, No hematuria, No urinary frequency Neurologic: No memory loss, No numbness/tingling, No weakness Psychiatric: No anxiety, No depression symptoms, No insomnia Endocrine: No excessive thirst, No excessive urination, No fatigue Integumentary: No itch, No new/changing skin lesions, No rash Allergic / Immunologic: + environmental allergies Physical Exam Vital Signs Date Time Temp Pulse Resp B/P Pulse Ox O2 Delivery O2 Flow Rate FiO2 03/18/17 08:38 90 03/18/17 07:26 36.8 106 18 144/96 94 Room Air General Appearance: WD/WN, no apparent distress Head: normocephalic, atraumatic Eyes: normal inspection, PERRL, EOMI ENT: hearing grossly normal, TMs normal, pharynx normal, + pertinent finding ( NGT in place, KUB pending) Neck: supple, no adenopathy Respiratory/Chest: chest non-tender, normal breath sounds, no respiratory distress, + rhonchi (likely transmitted from UA w/ NGT) Cardiovascular: no edema, no murmur, + irregularly irregular Abdomen/GI: non tender, soft, + abnormal bowel sounds (decreased), + pertinent finding (left sided ostomy bag in place, minimal output at present) Back: no CVA tenderness Extremities/Musculoskelatal: normal inspection, no calf tenderness, normal capillary refill Neurologic/Psych: cashier II-XII nml as tested, no motor/sensory deficits, alert, normal mood/affect, oriented x 3 Skin: normal color, warm/dry Diagnostics Laboratory Results Results Past 24 Hours Test 03/18/17 07:30 Range/Units White Blood Count 13.03 4.8-10.8 K/uL Red Blood Count 5.62 4.7-6.1 M/uL Hemoglobin 17.9 14.0-18.0 g/dL Hematocrit 51.3 42-52 % Mean Corpuscular Volume 91.3 80-100 fL Mean Corpuscular Hemoglobin 31.9 25-34 pg Mean Corpuscular Hemoglobin Concent 34.9 32-36 g/dl Platelet Count 171 130-400 K/uL Mean Platelet Volume 9.2 7.4-10.4 fL Neutrophils (%) (Auto) 79.3 % Lymphocytes (%) (Auto) 13.4 % Monocytes (%) (Auto) 6.7 % Eosinophils (%) (Auto) 0.2 % Basophils (%) (Auto) 0.2 % Neutrophils # (Auto) 10.35 1.4-6.5 K/uL Lymphocytes # (Auto) 1.74 1.2-3.4 K/uL Monocytes # (Auto) 0.87 0.11-0.59 K/uL Eosinophils # (Auto) 0.02 0-0.5 K/uL Basophils # (Auto) 0.02 0-0.2 K/uL RDW Standard Deviation 41.9 36.4-46.3 fL RDW Coefficient of Variation 12.5 11.5-14.5 % Immature Granulocyte % (Auto) 0.2 % Immature Granulocyte # (Auto) 0.03 0.00-0.02 K/uL Sodium Level 136 136-145 mmol/L Potassium Level 4.5 3.5-5.1 mmol/L Chloride Level 99 98-107 mmol/L Carbon Dioxide Level 25 21-32 mmol/L Anion Gap 12.0 3-11 mmol/L Blood Urea Nitrogen 29 7-18 mg/dl Creatinine 1.60 0.60-1.40 mg/dl Est Creatinine Clear Calc Drug Dose 30.1 ml/min Estimated GFR () 44.9 Estimated GFR (Non- 38.7 BUN/Creatinine Ratio 17.9 10-20 Random Glucose 245 70-99 mg/dl Calcium Level 11.2 8.5-10.1 mg/dl Total Bilirubin 1.7 0.2-1 mg/dl Direct Bilirubin 0.3 0-0.2 mg/dl Aspartate Amino Transf (AST/SGOT) 22 15-37 U/L Alanine Aminotransferase (ALT/SGPT) 31 12-78 U/L Alkaline Phosphatase 67 45-117 U/L Total Protein 8.1 6.4-8.2 gm/dl Albumin 3.9 3.4-5.0 gm/dl Lipase 146 73-393 U/L Impression Assessment and Plan (1) Small bowel obstruction Assessment & Plan: - NGT in place to suction w/ improvement - general surgical consult (Dr. Bolanos) - input appreciated - NPO at present - IVF @ maintenance - 70 cc/hr D5 1/2NS - I/O - telemetry floor 2/2 underlying medical issues (2) Elevated serum creatinine Assessment & Plan: - likely 2/2 dehydration w/ N/V - gentle hydration as above - repeat BMP in AM (3) Atrial Fibrillation Assessment & Plan: - not on AC 2/2 falls - holding metoprolol 2/2 NGT - telemetry monitoring for now - would re-visit AC discussion at time of discharge (4) Diab Josi Wo Compl, Type Ii Or Unspec Type, Not Uncntrld Assessment & Plan: - A1c in house - hold glipizide - ISS while inpatient - diabetic diet when able (5) Hypertension Nos Assessment & Plan: - holding metoprolol and imdur 2/2 NGT - IV hydralazine PRN for hypertension > 180 systolic, > 95 diastolic (6) Hyperlipidemia Nec/Nos Level of Care Med/Surg Advanced Directives Existing Advance Directive: Yes Existing Living Will: Yes Existing Power of Hospitality Coordinator: Yes Existing Health Care Proxy: Yes Resuscitation Status DO NOT RESUSCITATE VTE Prophylaxis VTE Risk Assessment Done? Y/N: Yes Risk Level: High Given or contraindicated: SCD's (until s/p surgical eval) Additional Copies To Amanda Newell M.D.
[2017-03-18 09:43] VITALS: O2SAT 94; Ht 170.2 cm; Wt 57.3 kg
[2017-03-18] MEDS ORDERED: HydrALAZINE HCL 20 MG/ML VIAL IV. PRN (09:45)
[2017-03-18] MEDS ORDERED: ALBUTEROL 0.083% NEBU SOLN 3 ML VIAL INH PRN (09:45)
[2017-03-18] MEDS ORDERED: ACETAMINOPHEN 500 MG TAB PO PRN (09:45)
[2017-03-18] MEDS ORDERED: NITROGLYCERIN 0.4 MG SL PER TAB CHARGE SL PRN (09:45)
[2017-03-18] MEDS ORDERED: D5W AND 1/2NSS 1,000 ML IV SCH (10:00)
--- NOTE | 2017-03-18 10:20 | History and Physical ---
History & Physical Date & Time of Service: March 18, 2017 at 10:14 Chief Complaint: Vomiting Primary Care Physician: Amanda Newell M.D. History of Present Illness Source: patient, family 86 y/o male h/o colectomy w/ transverse ostomy presents with 12 hours of persistent nausea/vomiting of black/feculent vomitus. States that he was feeling fine until approx 1800 on 03.17.17 when the vomiting started. He emptied his ostomy shortly thereafter and it has had minimal output since then. He reports distended, bloated abdomen with generalized discomfort which resolved w / vomiting and is significantly improved in the ED following NGT placement. History of similar episodes in the past which have required admission, decompression and nonsurgical manipulation. Procedure originally done by Dr. Bolanos, consulted. Reports no fever, chills, GILLIS, lightheadedness, vision/hearing changes, CP/SOB, palpitations, leg swelling, rashes. 2010- laparotomy, lysis of adhesions, parastomal hernia repair- Radames Bolanos Past Medical/Surgical History Medical Problems: (1) Atrial Fibrillation Status: Chronic (2) Diab Josi Wo Compl, Type Ii Or Unspec Type, Not Uncntrld Status: Chronic (3) Hyperlipidemia Nec/Nos Status: Chronic (4) Hypertension Nos Status: Chronic Surgical Problems: (1) History of cataract surgery Status: Resolved Family History FHx: GI cancer Heart disease Social History Smoking Status: Former Smoker Smokeless Tobacco Use: No Alcohol Use: none Drug Use: none Marital Status: Housing status: lives with family Occupational Status: retired Immunizations History of Influenza Vaccine: Yes History of Tetanus Vaccine?: Yes History of Pneumococcal: Yes History of Hepatitis B Vaccine: Unknown Multi-Drug Resistant Organisms History of MDRO: No Allergies Coded Allergies: Opium (Verified Allergy, Unknown, unknown, 03/18/17) Morphine (Verified Adverse Reaction, Intermediate, CONFUSION, 03/18/17) Home Medications Scheduled Ascorbic Acid (Ascorbic Acid), 500 MG PO TID Aspirin (Aspirin Ec), 81 MG PO DAILY Cholecalciferol (Vitamin D3), 1,000 INTER.UNIT PO DAILY Digoxin (Digoxin), 1 TAB PO DAILY@1600 Doxazosin Mesylate (Cardura), 4 MG PO DAILY Dutasteride (Dutasteride), 0.5 MG PO DAILY Fish Oil ([place]-3), 1,000 MG PO TID Folic Acid (Folvite), 400 MCG PO DAILY Gabapentin (Gabapentin), 300 MG PO HS Bvvltqxbkik-Ozymxikiukn-Vcf C- (Glucosamine Chondroitin), 1 TAB PO BID Isosorbide Mononitrate Ext Rel (Imdur Ext Rel), 60 MG PO DAILY Lactobacillus Acidophilus (Lactinex), 1 TAB PO TIDM Lisinopril (Zestril), 1 TAB PO DAILY Magnesium Oxide (Mag-Ox), 800 MG PO DAILY Metoprolol Tartrate (Lopressor), 12.5 MG PO BID Multivitamin (Multivitamin), 1 TAB PO DAILY S-Adenosylmethionine (Héctor E), 400 MG PO QAM Simvastatin (Zocor), 40 MG PO QPM Tiotropium [place] Monohydrate (Spiriva Respimat), 1 PUFF INH DAILY Tobramycin-Dexamethasone (Tobradex St), 1 DROP OPL BID Valacyclovir Hcl (Valtrex), 1 GM PO BID Scheduled PRN Acetaminophen (Tylenol), 500 MG PO TID PRN for Pain or Fever Albuterol Sulf (Proventil 0.083% 2.5MG/3ML), 2.5 MG INH QID PRN for SOB/Wheezing Ganciclovir Ophthalmic (Zirgan), 1 APPLN OPL BID PRN for Dry Eye Mometasone Furoate (Nasal) (Mometasone Furoate), 2 SPRAYS NA DAILY PRN for Nasal Congestion Nitroglycerin (Nitrostat), 0.4 MG UT UD PRN for Chest Pain Review of Systems Constitutional: No chills, No fever Respiratory: No cough, No shortness of breath Cardiovascular: No chest pain Abdomen: + nausea, + pain, + vomiting Musculoskeletal: No swelling Genitourinary - Male: No dysuria Psychiatric: No anxiety Endocrine: + fatigue Integumentary: No rash Physical Exam Vital Signs Date Time Temp Pulse Resp B/P Pulse Ox O2 Delivery O2 Flow Rate FiO2 03/18/17 09:43 94 Room Air 03/18/17 08:38 90 03/18/17 07:26 36.8 106 18 144/96 94 Room Air General Appearance: WD/WN, no apparent distress Head: normocephalic, atraumatic Eyes: normal inspection, PERRL, EOMI ENT: hearing grossly normal, TMs normal, pharynx normal, + pertinent finding ( NGT in place, KUB pending) Neck: supple, no adenopathy Respiratory/Chest: chest non-tender, normal breath sounds, no respiratory distress, + rhonchi (likely transmitted from UA w/ NGT) Cardiovascular: no edema, no murmur, + irregularly irregular Abdomen/GI: non tender, soft, + abnormal bowel sounds (decreased), + pertinent finding (left sided ostomy bag in place, minimal output at present) Back: no CVA tenderness Extremities/Musculoskelatal: normal inspection, no calf tenderness, normal capillary refill 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, no motor/sensory deficits, alert, normal mood/affect, oriented x 3 Skin: normal color, warm/dry NG tube in place abd- mild distention, some diminished bowel sounds, minimal tenderness stoma viable Diagnostics Laboratory Results Results Past 24 Hours Test 03/18/17 07:30 Range/Units White Blood Count 13.03 4.8-10.8 K/uL Red Blood Count 5.62 4.7-6.1 M/uL Hemoglobin 17.9 14.0-18.0 g/dL Hematocrit 51.3 42-52 % Mean Corpuscular Volume 91.3 80-100 fL Mean Corpuscular Hemoglobin 31.9 25-34 pg Mean Corpuscular Hemoglobin Concent 34.9 32-36 g/dl Platelet Count 171 130-400 K/uL Mean Platelet Volume 9.2 7.4-10.4 fL Neutrophils (%) (Auto) 79.3 % Lymphocytes (%) (Auto) 13.4 % Monocytes (%) (Auto) 6.7 % Eosinophils (%) (Auto) 0.2 % Basophils (%) (Auto) 0.2 % Neutrophils # (Auto) 10.35 1.4-6.5 K/uL Lymphocytes # (Auto) 1.74 1.2-3.4 K/uL Monocytes # (Auto) 0.87 0.11-0.59 K/uL Eosinophils # (Auto) 0.02 0-0.5 K/uL Basophils # (Auto) 0.02 0-0.2 K/uL RDW Standard Deviation 41.9 36.4-46.3 fL RDW Coefficient of Variation 12.5 11.5-14.5 % Immature Granulocyte % (Auto) 0.2 % Immature Granulocyte # (Auto) 0.03 0.00-0.02 K/uL Sodium Level 136 136-145 mmol/L Potassium Level 4.5 3.5-5.1 mmol/L Chloride Level 99 98-107 mmol/L Carbon Dioxide Level 25 21-32 mmol/L Anion Gap 12.0 3-11 mmol/L Blood Urea Nitrogen 29 7-18 mg/dl Creatinine 1.60 0.60-1.40 mg/dl Est Creatinine Clear Calc Drug Dose 30.1 ml/min Estimated GFR () 44.9 Estimated GFR (Non- 38.7 BUN/Creatinine Ratio 17.9 10-20 Random Glucose 245 70-99 mg/dl Calcium Level 11.2 8.5-10.1 mg/dl Total Bilirubin 1.7 0.2-1 mg/dl Direct Bilirubin 0.3 0-0.2 mg/dl Aspartate Amino Transf (AST/SGOT) 22 15-37 U/L Alanine Aminotransferase (ALT/SGPT) 31 12-78 U/L Alkaline Phosphatase 67 45-117 U/L Total Protein 8.1 6.4-8.2 gm/dl Albumin 3.9 3.4-5.0 gm/dl Lipase 146 73-393 U/L Impression Assessment and Plan 03/18/17- adm with small bowel obstruction- nonoperative initial mgt NG tube, ice only, IV meds- monitor progress- possible repeat CT w/ contrast via NG depending on progress over 48 hrs Advanced Directives Existing Advance Directive: Yes Existing Living Will: Yes Existing Power of Industrial Engineering Manager: Yes Existing Health Care Proxy: Yes VTE Prophylaxis VTE Risk Assessment Done? Y/N: Yes Risk Level: High Given or contraindicated: SCD's (until s/p surgical eval)
[2017-03-18 12:57] LABS: URINE APPEARANCE CLOUDY (CLEAR); URINE BILIRUBIN NEG (NEG); URINE COLOR YELLOW; URINE NITRITE NEG (NEG); URINE PH 8.5 (4.5-7.5); UROBILINOGEN NEG (NEG); ZZUR CULT IF INDIC CLEAN CATCH NO
[2017-03-18 13:03] LABS: MANUAL MICROSCOPIC REQUIRED? NO; REVIEW REQ? NO
[2017-03-18] MEDS: OMEGA-3 (PURIFIED FISH OIL) 1 GM CAP PO SCH ×2 (14:00→21:00)
[2017-03-18 15:13] VITALS: BP 138/84; PULSE 98; TEMP 36.4; O2SAT 94
[2017-03-18] MEDS: DIGOXIN 0.125 MG TAB PO SCH (16:00)
[2017-03-18] MEDS ORDERED: ONDANSETRON INJ 2 MG/ML 2 ML VIAL ONE (16:23)
[2017-03-18] MEDS ORDERED: METOPROLOL TARTRATE 1 MG/ML VIAL ONE (16:29)
[2017-03-18] MEDS ORDERED: NURSING VERBAL MED ORDER ONE ×2 (16:45→17:45)
[2017-03-18] MEDS: METOPROLOL TARTRATE 25 MG TAB PO SCH (17:45)
[2017-03-18] MEDS ORDERED: METOPROLOL TARTRATE 1 MG/ML VIAL IV. SCH (18:30)
[2017-03-18 19:18] VITALS: BP 144/85; PULSE 88; TEMP 36.4; O2SAT 93
[2017-03-18 20:00] VITALS: O2SAT 93
[2017-03-18] MEDS: SIMVASTATIN 40 MG TAB PO SCH (21:00)
[2017-03-18] MEDS: GABAPENTIN 300 MG CAP PO SCH (21:00)
[2017-03-18] MEDS: METOPROLOL TARTRATE 1 MG/ML VIAL IV. SCH (22:52)
[2017-03-19] VITALS (11 sets, daily range): BP systolic 110–135; BP diastolic 65–84; PULSE 65–83; TEMP 36.8–37.1; O2SAT 92–95
[2017-03-19] MEDS: METOPROLOL TARTRATE 1 MG/ML VIAL IV. SCH ×4 (05:12→22:30)
--- NOTE | 2017-03-19 06:58 | Surgery Progress Note ---
Surgery Progress Note Date of Service March 19, 2017. Subjective had massive output from colostomy- pt currently taking care of stoma moderate bilious NG output Objective Vital Signs: Date Time Temp Pulse Resp B/P Pulse Ox O2 Delivery O2 Flow Rate FiO2 03/19/17 05:12 87 142/74 03/19/17 04:42 36.9 83 18 130/84 94 Room Air 03/19/17 04:00 93 Room Air 03/19/17 00:01 36.8 79 18 135/82 94 Room Air 03/19/17 00:00 93 Room Air 03/18/17 22:52 96 152/84 03/18/17 20:00 93 Room Air 03/18/17 19:18 36.4 88 18 144/85 93 Room Air 03/18/17 16:33 102 145/87 03/18/17 16:00 Room Air 03/18/17 16:00 102 03/18/17 15:13 36.4 98 16 138/84 94 Room Air 03/18/17 12:00 Room Air 03/18/17 09:55 88 18 123/77 95 Room Air 03/18/17 09:43 94 Room Air 03/18/17 08:38 90 03/18/17 07:26 36.8 106 18 144/96 94 Room Air General Appearance: no apparent distress Respiratory/Chest: no respiratory distress Abdomen: non tender, soft Laboratory Results: Results Past 24 Hours Test 03/18/17 07:30 03/18/17 12:40 03/19/17 04:44 Range/Units White Blood Count 13.03 4.8-10.8 K/uL Red Blood Count 5.62 4.7-6.1 M/uL Hemoglobin 17.9 14.0-18.0 g/dL Hematocrit 51.3 42-52 % Mean Corpuscular Volume 91.3 80-100 fL Mean Corpuscular Hemoglobin 31.9 25-34 pg Mean Corpuscular Hemoglobin Concent 34.9 32-36 g/dl Platelet Count 171 130-400 K/uL Mean Platelet Volume 9.2 7.4-10.4 fL Neutrophils (%) (Auto) 79.3 % Lymphocytes (%) (Auto) 13.4 % Monocytes (%) (Auto) 6.7 % Eosinophils (%) (Auto) 0.2 % Basophils (%) (Auto) 0.2 % Neutrophils # (Auto) 10.35 1.4-6.5 K/uL Lymphocytes # (Auto) 1.74 1.2-3.4 K/uL Monocytes # (Auto) 0.87 0.11-0.59 K/uL Eosinophils # (Auto) 0.02 0-0.5 K/uL Basophils # (Auto) 0.02 0-0.2 K/uL RDW Standard Deviation 41.9 36.4-46.3 fL RDW Coefficient of Variation 12.5 11.5-14.5 % Immature Granulocyte % (Auto) 0.2 % Immature Granulocyte # (Auto) 0.03 0.00-0.02 K/uL Sodium Level 136 136-145 mmol/L Potassium Level 4.5 3.5-5.1 mmol/L Chloride Level 99 98-107 mmol/L Carbon Dioxide Level 25 21-32 mmol/L Anion Gap 12.0 3-11 mmol/L Blood Urea Nitrogen 29 7-18 mg/dl Creatinine 1.60 0.60-1.40 mg/dl Est Creatinine Clear Calc Drug Dose 30.1 ml/min Estimated GFR () 44.9 Estimated GFR (Non- 38.7 BUN/Creatinine Ratio 17.9 10-20 Random Glucose 245 70-99 mg/dl Calcium Level 11.2 8.5-10.1 mg/dl Total Bilirubin 1.7 0.2-1 mg/dl Direct Bilirubin 0.3 0-0.2 mg/dl Aspartate Amino Transf (AST/SGOT) 22 15-37 U/L Alanine Aminotransferase (ALT/SGPT) 31 12-78 U/L Alkaline Phosphatase 67 45-117 U/L Total Protein 8.1 6.4-8.2 gm/dl Albumin 3.9 3.4-5.0 gm/dl Lipase 146 73-393 U/L Urine Color YELLOW Urine Appearance CLOUDY CLEAR Urine pH 8.5 4.5-7.5 Urine Specific [place] 1.020 1.000-1.030 Urine Protein NEG NEG Urine Glucose (UA) 2+ NEG Urine Ketones 1+ NEG Urine Occult Blood NEG NEG Urine Nitrite NEG NEG Urine Bilirubin NEG NEG Urine Urobilinogen NEG NEG Urine Leukocyte Esterase NEG NEG Urine WBC (Auto) 1-5 0-5 /hpf Urine RBC (Auto) 5-10 0-4 /hpf Urine Hyaline Casts (Auto) 0 0-5 /lpf Urine Epithelial Cells (Auto) 10-20 0-5 /lpf Urine Bacteria (Auto) NEG NEG Assessment & Plan 03/19/17- adm with sbo- seems to have increased stoma output leave NG today- clamping schedule. ice only for now hopefully can avoid surgery
[2017-03-19 07:31] LABS: BASO % 0.3 %; BASO ABS # 0.02 K/uL (0-0.2); COMPLETE YES; EOS % 1.2 %; HEMATOCRIT 48.4 % (42-52); IG% 0.1 %; LYMPH % 22.8 %; LYMPH ABS # 1.55 K/uL (1.2-3.4); MEAN CELL VOLUME 92.7 fL (80-100); MEAN CORPUSCULAR HGB CONC 33.5 g/dl (32-36); MEAN PLATELET VOLUME 9.1 fL (7.4-10.4); MONO % 13.8 %; NEUT % 61.8 %; PLATELET COUNT 147 K/uL (130-400); RED BLOOD COUNT 5.22 M/uL (4.7-6.1); WHITE BLOOD COUNT 6.79 K/uL (4.8-10.8)
[2017-03-19 08:13] LABS: ALB/GLOB RATIO 0.9 (0.9-2); BUN/CREATININE RATIO 30.3 (10-20); CALCIUM 9.3 mg/dl (8.5-10.1); CREATININE 1.2 mg/dl (0.60-1.40)
[2017-03-19] MEDS: MAGNESIUM OXIDE 400 MG TAB PO SCH (09:00)
[2017-03-19] MEDS: TIOTROPIUM BROMIDE 5 PUFF/90 MCG INH INH SCH (09:00)
[2017-03-19] MEDS: DOXAZosin TAB 1 MG TAB PO SCH (09:02)
[2017-03-19] MEDS: ASPIRIN 81 MG ECTAB PO SCH (09:02)
[2017-03-19] MEDS: CHOLECALCIFEROL 1000 INTER.UNIT TAB PO SCH (09:02)
[2017-03-19] MEDS: METOPROLOL TARTRATE 25 MG TAB PO SCH ×2 (09:02→21:48)
[2017-03-19] MEDS: FLUTICASONE PROPIONATE NA SPR 16 GM BTL SCH (09:02)
[2017-03-19] MEDS: MULTIVITAMIN TAB PO SCH (09:03)
[2017-03-19] MEDS: LISINOPRIL 2.5 MG TAB PO SCH (09:03)
[2017-03-19] MEDS: OMEGA-3 (PURIFIED FISH OIL) 1 GM CAP PO SCH ×3 (09:04→21:49)
[2017-03-19] MEDS: FoLIC ACID TAB 400 MCG TAB PO SCH (09:04)
[2017-03-19] MEDS: ISOSORBIDE MONONITRATE 60 MG TABCR PO SCH (09:05)
[2017-03-19 09:18] LABS: MAGNESIUM 1.8 mg/dl (1.8-2.4)
[2017-03-19 09:21] LABS: CKMB/CK RATIO 3.5 (0-3.0)
[2017-03-19] MEDS: NSS + 20MEQ KCL 1000ML 1,000 ML IV SCH ×2 (09:59→17:24)
--- NOTE | 2017-03-19 11:48 | Family Medicine Progress Note ---
Progress Note Date of Service March 19, 2017. Subjective Pt evaluation today including: conversation w/ patient, conversation w/ family , physical exam, chart review, lab review Pain: Doing well, no pain Voiding: no voiding problems, no incontinence Doing well at this time Noted have high volume output overnight Surgery is following and has clamped the tube; remains NPO No other complaints: Denies chest pain, palpitations, dyspnea, lightheadedness Tele monitor notes 3 minute burst of Tachycardia: uncertain wither monomorphic VTacc vs SVT with aberrancy Constitutional: No chills, No fever, No sweats Eyes: No eye pain, No redness, No worsening of vision ENT: No hearing loss, No unusual epistaxis Respiratory: No cough, No sputum, No wheezing Cardiovascular: No PND, No chest pain, No edema, No orthopnea, No palpitations Abdomen: No constipation, No diarrhea, No nausea, No pain, No vomiting Musculoskeletal: No joint pain, No muscle pain Male : No dysuria, No urinary frequency Neurologic: No memory loss, No numbness/tingling, No paralysis, No weakness Psychiatric: No anhedonism, No depression symptoms Heme: No abnormal bleeding/bruising, No clotting problems, No swollen lymph nodes Skin: No rash Medications Current Inpatient Medications Medications (Trade) Dose Ordered Sig/[place]oyda Route Start Time Stop Time Status Last Admin Dose Admin Nitroglycerin (Nitrostat Tab) 0.4 mg UD PRN SL 03/18/17 09:45 04/17/17 09:44 Acetaminophen (Tylenol Tab) 500 mg TID PRN PO 03/18/17 09:45 04/17/17 09:44 Albuterol Sulfate (Ventolin 0.083% 2.5MG/3ML Neb) 2.5 mg QID PRN INH 03/18/17 09:45 04/17/17 09:44 Aspirin (Ecotrin Tab) 81 mg DAILY PO 03/19/17 09:00 04/18/17 08:59 03/19/17 09:02 81 MG Digoxin (Lanoxin Tab) 0.125 mg DAILY@1600 PO 03/18/17 16:00 04/17/17 15:59 Doxazosin Mesylate (Cardura Tab) 1 mg DAILY PO 03/19/17 09:00 04/18/17 08:59 03/19/17 09:02 1 MG Fish Oil ([place]-3 (Purified Fish Oil) Cap) 1 gm TID PO 03/18/17 14:00 04/17/17 13:59 03/19/17 09:04 1 GM Folic Acid (Folvite Tab) 400 mcg DAILY PO 03/19/17 09:00 04/18/17 08:59 03/19/17 09:04 400 MCG Gabapentin (Neurontin Cap) 300 mg HS PO 03/18/17 21:00 04/17/17 20:59 Isosorbide Mononitrate (Imdur Ext Rel Tab) 60 mg DAILY PO 03/19/17 09:00 04/18/17 08:59 03/19/17 09:05 60 MG Lisinopril (Zestril Tab) 2.5 mg DAILY PO 03/19/17 09:00 04/18/17 08:59 03/19/17 09:03 2.5 MG Magnesium Oxide (Mag-Ox Tab) 800 mg DAILY PO 03/19/17 09:00 04/18/17 08:59 03/19/17 09:00 800 MG Metoprolol Tartrate (Lopressor Tab) 12.5 mg BID PO 03/18/17 21:00 04/17/17 20:59 03/19/17 09:02 12.5 MG Multivitamins (Multivitamin Tab) 1 tab DAILY PO 03/19/17 09:00 04/18/17 08:59 03/19/17 09:03 1 TAB Simvastatin (Zocor Tab) 40 mg QPM PO 03/18/17 21:00 04/17/17 20:59 Cholecalciferol (Vitamin D Tab) 1,000 inter.unit QAM PO 03/19/17 09:00 04/18/17 08:59 03/19/17 09:02 1,000 INTER.UNIT Fluticasone Propionate (Flonase Nasal [place]) 1 sprays DAILY NA 03/19/17 09:00 04/18/17 08:59 03/19/17 09:02 1 SPRAYS Tiotropium [place] (Spiriva [place] Inhaler) 1 puff QAM INH 03/19/17 09:00 04/18/17 08:59 03/19/17 09:00 1 PUFF Hydralazine HCl (HydrALAZINE INJ) 5 mg Q6 PRN IV. 03/18/17 09:45 04/17/17 09:44 Metoprolol Tartrate 5 mg 5 mg Q6H IV. 03/18/17 22:30 04/17/17 22:29 03/19/17 05:12 5 MG Potassium Chloride/Sodium Chloride (Nss + 20meq KCl 1000ml) 1,000 ml @ 125 mls/hr Q8H IV 03/19/17 09:30 04/18/17 08:44 03/19/17 09:59 125 MLS/HR Objective Vital Signs Date Time Temp Pulse Resp B/P Pulse Ox O2 Delivery O2 Flow Rate FiO2 03/19/17 11:11 36.8 65 18 110/65 93 Room Air 03/19/17 07:51 Room Air 03/19/17 07:29 36.8 75 22 131/77 92 Room Air 03/19/17 05:12 87 142/74 03/19/17 04:42 36.9 83 18 130/84 94 Room Air 03/19/17 04:00 93 Room Air 03/19/17 00:01 36.8 79 18 135/82 94 Room Air 03/19/17 00:00 93 Room Air 03/18/17 22:52 96 152/84 03/18/17 20:00 93 Room Air 03/18/17 19:18 36.4 88 18 144/85 93 Room Air 03/18/17 16:33 102 145/87 03/18/17 16:00 Room Air 03/18/17 16:00 102 03/18/17 15:13 36.4 98 16 138/84 94 Room Air 03/18/17 12:00 Room Air Physical Exam General Appearance: WD/WN, no apparent distress Eyes: normal inspection, EOMI ENT: normal ENT inspection, pharynx normal, + pertinent finding (NG tube in place, clamped) Neck: supple, no adenopathy, no JVD Respiratory/Chest: lungs clear, no respiratory distress Cardiovascular: regular rate, rhythm, no gallop, no murmur Abdomen: normal bowel sounds, non tender, soft Extremities: non-tender, no pedal edema Neurologic/Psychiatric: alert, normal mood/affect, oriented x 3 Skin: normal color, warm/dry, no rash Lymphatic: no adenopathy Laboratory Results Last 24 Hours Test 03/18/17 12:40 03/19/17 07:20 03/19/17 08:44 Urine Color YELLOW Urine Appearance CLOUDY Urine pH 8.5 Urine Specific [place] 1.020 Urine Protein NEG Urine Glucose (UA) 2+ Urine Ketones 1+ Urine Occult Blood NEG Urine Nitrite NEG Urine Bilirubin NEG Urine Urobilinogen NEG Urine Leukocyte Esterase NEG Urine WBC (Auto) 1-5 /hpf Urine RBC (Auto) 5-10 /hpf Urine Hyaline Casts (Auto) 0 /lpf Urine Epithelial Cells (Auto) 10-20 /lpf Urine Bacteria (Auto) NEG White Blood Count 6.79 K/uL Red Blood Count 5.22 M/uL Hemoglobin 16.2 g/dL Hematocrit 48.4 % Mean Corpuscular Volume 92.7 fL Mean Corpuscular Hemoglobin 31.0 pg Mean Corpuscular Hemoglobin Concent 33.5 g/dl Platelet Count 147 K/uL Mean Platelet Volume 9.1 fL Neutrophils (%) (Auto) 61.8 % Lymphocytes (%) (Auto) 22.8 % Monocytes (%) (Auto) 13.8 % Eosinophils (%) (Auto) 1.2 % Basophils (%) (Auto) 0.3 % Neutrophils # (Auto) 4.19 K/uL Lymphocytes # (Auto) 1.55 K/uL Monocytes # (Auto) 0.94 K/uL Eosinophils # (Auto) 0.08 K/uL Basophils # (Auto) 0.02 K/uL RDW Standard Deviation 43.4 fL RDW Coefficient of Variation 12.6 % Immature Granulocyte % (Auto) 0.1 % Immature Granulocyte # (Auto) 0.01 K/uL Sodium Level 140 mmol/L Potassium Level 4.0 mmol/L Chloride Level 105 mmol/L Carbon Dioxide Level 27 mmol/L Anion Gap 8.0 mmol/L Blood Urea Nitrogen 36 mg/dl Creatinine 1.20 mg/dl Est Creatinine Clear Calc Drug Dose 36.6 ml/min Estimated GFR () 63.5 Estimated GFR (Non- 54.8 BUN/Creatinine Ratio 30.3 Random Glucose 192 mg/dl Calcium Level 9.3 mg/dl Total Bilirubin 1.2 mg/dl Aspartate Amino Transf (AST/SGOT) 16 U/L Alanine Aminotransferase (ALT/SGPT) 22 U/L Alkaline Phosphatase 57 U/L Total Protein 7.2 gm/dl Albumin 3.5 gm/dl Globulin 3.7 gm/dl Albumin/Globulin Ratio 0.9 Phosphorus Level 2.0 mg/dl Magnesium Level 1.8 mg/dl Total Creatine Kinase 101 U/L Creatine Kinase MB 3.5 ng/ml Creatine Kinase MB Ratio 3.5 Troponin I 0.015 ng/ml Assessment and Plan 86 year old with small bowel obstruction, which appears to be resolving given start of colostomy output. At this is doing well and hemodynamically stable. Our plan for him is as follows: Small Bowel Obstruction - NGT in place, now clamped per surgery - Remain NPO except ice chips; resume diet per surgery - Surgery recommendations appreciated - NSS + 20 mEq KCl at 125 ml/hr VTacc vs SVT with aberrancy - Reviewed rhythm strip - QRS complexes during tachycardia have similar morphology to QRS when in normal rhythm, points to supraventricular foci - Reviewed EKG from 11/2016; there does appear to be T wave inversion now which were not present previously - Possibly supply/demand mismatch from acute illness - Electrolytes grossly normal; Mg normal - Cardiac enzymes normal Acute Kidney Injury - Cr improving, currently 1.2; was 1.6 on arrival - Aim for baseline 1.1 - IVF fluids at maintenance and monitor daily Atrial Fibrillation - Resume PO metoprolol and Digoxin - Rate controlled at this time - Currently not on anticoagulation; needs to discuss merit of anticoagulation for stroke prevention Type 2 Diabetes Mellitus - Per home list, no evidence of home diabetic medications - Will monitor BSG q6h while NPO; can add correction insulin if hyperglycemic - Resume type 2 diabetic diet when can take PO - last A1c in EMR 6.2 from 2010 Hypertension - Lisinopril - Doxazosin - Hydralazine PRN Hyperlipidemia - Continue Simvastatin DVT prophylaxis - No indication at this time for surgery - SCD - Can start Heparin 5000 TID Code Status - DNR Disposition - Telemetry for monitoring Continued [facility] stay due to: inadequate po fluid intake Discharge planning: home Reviewed: Pt Seen/Exam by Me History ostomy has been putting out stool ngt clamped by surgery denies concerns Constitutional: denies: fever Respiratory: negative: short of breath Cardiovascular: denies chest pain Gastrointestinal/Abdominal: negative: abdominal pain General Appearance: no apparent distress Respiratory: lungs clear, no respiratory distress Cardiovascular: regular rate, rhythm Gastrointestinal: soft, other (ostomy +) Neurologic/Psychiatric: alert, oriented x 3 Skin Characteristics: warm/dry Assessment/Plan I have reviewed the medical record and performed a history and physical examination of this patient today. I have discussed the case with Dr. Wallace. The above note reflects my findings, conclusions, and recommendations.
[2017-03-19] MEDS: HEPARIN SOD 5000 UNIT/0.5 ML CARP SQ SCH ×2 (13:19→21:42)
[2017-03-19] MEDS: DIGOXIN 0.125 MG TAB PO SCH (16:02)
[2017-03-19] MEDS: SIMVASTATIN 40 MG TAB PO SCH (21:48)
[2017-03-19] MEDS: GABAPENTIN 300 MG CAP PO SCH (21:48)
[2017-03-20] VITALS (8 sets, daily range): BP systolic 112–137; BP diastolic 66–83; PULSE 59–68; TEMP 36.3–37.2; O2SAT 92–95
[2017-03-20] MEDS: NSS + 20MEQ KCL 1000ML 1,000 ML IV SCH ×3 (03:00→21:52)
[2017-03-20] MEDS: METOPROLOL TARTRATE 1 MG/ML VIAL IV. SCH (04:30)
[2017-03-20] MEDS: HEPARIN SOD 5000 UNIT/0.5 ML CARP SQ SCH ×3 (06:23→21:51)
--- NOTE | 2017-03-20 07:17 | Surgery Progress Note ---
Surgery Progress Note Date of Service March 20, 2017. Subjective colostomy functioning- minimal NG output Objective Vital Signs: Date Time Temp Pulse Resp B/P Pulse Ox O2 Delivery O2 Flow Rate FiO2 03/20/17 04:30 58 03/20/17 04:00 Room Air 03/20/17 03:46 36.6 68 18 136/73 95 Room Air 03/20/17 00:22 36.9 65 16 130/74 93 Room Air 03/20/17 00:00 Room Air 03/19/17 22:30 58 03/19/17 20:00 93 Room Air 03/19/17 19:56 37.1 79 22 122/67 95 Room Air 03/19/17 16:02 79 03/19/17 15:52 92 Room Air 03/19/17 15:26 36.8 79 22 116/70 92 Room Air 03/19/17 11:47 93 Room Air 03/19/17 11:11 36.8 65 18 110/65 93 Room Air 03/19/17 07:51 Room Air 03/19/17 07:29 36.8 75 22 131/77 92 Room Air General Appearance: no apparent distress Respiratory/Chest: no respiratory distress Abdomen: soft Laboratory Results: Results Past 24 Hours Test 03/19/17 07:20 03/19/17 08:44 03/19/17 12:06 03/19/17 18:41 Range/Units White Blood Count 6.79 4.8-10.8 K/uL Red Blood Count 5.22 4.7-6.1 M/uL Hemoglobin 16.2 14.0-18.0 g/dL Hematocrit 48.4 42-52 % Mean Corpuscular Volume 92.7 80-100 fL Mean Corpuscular Hemoglobin 31.0 25-34 pg Mean Corpuscular Hemoglobin Concent 33.5 32-36 g/dl Platelet Count 147 130-400 K/uL Mean Platelet Volume 9.1 7.4-10.4 fL Neutrophils (%) (Auto) 61.8 % Lymphocytes (%) (Auto) 22.8 % Monocytes (%) (Auto) 13.8 % Eosinophils (%) (Auto) 1.2 % Basophils (%) (Auto) 0.3 % Neutrophils # (Auto) 4.19 1.4-6.5 K/uL Lymphocytes # (Auto) 1.55 1.2-3.4 K/uL Monocytes # (Auto) 0.94 0.11-0.59 K/uL Eosinophils # (Auto) 0.08 0-0.5 K/uL Basophils # (Auto) 0.02 0-0.2 K/uL RDW Standard Deviation 43.4 36.4-46.3 fL RDW Coefficient of Variation 12.6 11.5-14.5 % Immature Granulocyte % (Auto) 0.1 % Immature Granulocyte # (Auto) 0.01 0.00-0.02 K/uL Sodium Level 140 136-145 mmol/L Potassium Level 4.0 3.5-5.1 mmol/L Chloride Level 105 98-107 mmol/L Carbon Dioxide Level 27 21-32 mmol/L Anion Gap 8.0 3-11 mmol/L Blood Urea Nitrogen 36 7-18 mg/dl Creatinine 1.20 0.60-1.40 mg/dl Est Creatinine Clear Calc Drug Dose 36.6 ml/min Estimated GFR () 63.5 Estimated GFR (Non- 54.8 BUN/Creatinine Ratio 30.3 10-20 Random Glucose 192 70-99 mg/dl Calcium Level 9.3 8.5-10.1 mg/dl Total Bilirubin 1.2 0.2-1 mg/dl Aspartate Amino Transf (AST/SGOT) 16 15-37 U/L Alanine Aminotransferase (ALT/SGPT) 22 12-78 U/L Alkaline Phosphatase 57 45-117 U/L Total Protein 7.2 6.4-8.2 gm/dl Albumin 3.5 3.4-5.0 gm/dl Globulin 3.7 2.5-4.0 gm/dl Albumin/Globulin Ratio 0.9 0.9-2 Phosphorus Level 2.0 2.5-4.9 mg/dl Magnesium Level 1.8 1.8-2.4 mg/dl Total Creatine Kinase 101 39-308 U/L Creatine Kinase MB 3.5 0.5-3.6 ng/ml Creatine Kinase MB Ratio 3.5 0-3.0 Troponin I 0.015 0-0.045 ng/ml Bedside Glucose 172 133 70-99 mg/dl Test 03/20/17 00:38 03/20/17 04:44 03/20/17 07:04 Range/Units Bedside Glucose 125 139 70-99 mg/dl Creatine Kinase MB Ratio 0-3.0 Assessment & Plan 03/20/17- remove NG, start clear liquids- advance diet as tolerated resolving partial sbo 03/19/17- adm with sbo- seems to have increased stoma output leave NG today- clamping schedule. ice only for now hopefully can avoid surgery 03/19/17- adm with sbo- seems to have increased stoma output leave NG today- clamping schedule. ice only for now hopefully can avoid surgery
[2017-03-20 07:52] LABS: HEMATOCRIT 43.1 % (42-52); MEAN CELL VOLUME 94.9 fL (80-100); MEAN CORPUSCULAR HEMOGLOBIN 31.5 pg (25-34); MEAN CORPUSCULAR HGB CONC 33.2 g/dl (32-36); MEAN PLATELET VOLUME 9.7 fL (7.4-10.4); PLATELET COUNT 125 K/uL (130-400); RED BLOOD COUNT 4.54 M/uL (4.7-6.1); WHITE BLOOD COUNT 7.49 K/uL (4.8-10.8)
[2017-03-20] MEDS ORDERED: ALBUT/IPRATROP 3MG/0.5MG NEB 3 ML VIAL INH PRN (08:00)
[2017-03-20 08:17] LABS: ALT/SGPT 18 U/L (12-78); BLOOD UREA NITROGEN 30 mg/dl (7-18); CARBON DIOXIDE 25 mmol/L (21-32); CHLORIDE 108 mmol/L (98-107); CREATININE 0.91 mg/dl (0.60-1.40); GLUCOSE 132 mg/dl (70-99); MAGNESIUM 1.9 mg/dl (1.8-2.4); POTASSIUM 4.3 mmol/L (3.5-5.1); SODIUM 141 mmol/L (136-145)
[2017-03-20 08:38] LABS: ALB/GLOB RATIO 0.8 (0.9-2); ALKALINE PHOSPHATASE 54 U/L (45-117); AST/SGOT 16 U/L (15-37); CALCIUM 8.4 mg/dl (8.5-10.1); PHOSPHORUS 1.3 mg/dl (2.5-4.9)
[2017-03-20] MEDS: MAGNESIUM OXIDE 400 MG TAB PO SCH (09:00)
[2017-03-20] MEDS: TIOTROPIUM BROMIDE 5 PUFF/90 MCG INH INH SCH (09:00)
[2017-03-20] MEDS: FLUTICASONE PROPIONATE NA SPR 16 GM BTL SCH (09:11)
[2017-03-20] MEDS: ISOSORBIDE MONONITRATE 60 MG TABCR PO SCH (09:13)
[2017-03-20] MEDS: OMEGA-3 (PURIFIED FISH OIL) 1 GM CAP PO SCH ×3 (09:13→21:47)
[2017-03-20] MEDS: MULTIVITAMIN TAB PO SCH (09:13)
[2017-03-20] MEDS: LISINOPRIL 2.5 MG TAB PO SCH (09:13)
[2017-03-20] MEDS: FoLIC ACID TAB 400 MCG TAB PO SCH (09:13)
[2017-03-20] MEDS: DOXAZosin TAB 1 MG TAB PO SCH (09:13)
[2017-03-20] MEDS: METOPROLOL TARTRATE 25 MG TAB PO SCH ×2 (09:13→21:46)
[2017-03-20] MEDS: CHOLECALCIFEROL 1000 INTER.UNIT TAB PO SCH (09:14)
[2017-03-20] MEDS: ASPIRIN 81 MG ECTAB PO SCH (09:14)
[2017-03-20] MEDS ORDERED: POTASSIUM PHOS 3 MMOL/1 ML INFUSION IV STA (09:57)
[2017-03-20] MEDS ORDERED: POTASSIUM PHOSPHATE INJ 21 MMOL in SODIUM CHLORIDE 0.9% 500ML 500 ML IV SCH (10:30)
[2017-03-20] MEDS: POT PHOSPHATE MONOBASIC W/ SOD TAB PO SCH ×3 (11:43→21:46)
--- NOTE | 2017-03-20 13:41 | Family Medicine Progress Note ---
Progress Note Date of Service March 20, 2017. Subjective Pt evaluation today including: conversation w/ patient, physical exam, chart review, lab review Pain: None PO Intake: Clear liquid Constitutional: No chills, No fever, No sweats Eyes: No discharge, No eye pain, No redness ENT: No nasal symptoms, No sore throat, No tinnitus Respiratory: No cough, No shortness of breath, No sputum, No wheezing Cardiovascular: No chest pain, No claudication, No orthopnea, No palpitations Abdomen: No constipation, No diarrhea, No nausea, No pain, No vomiting Musculoskeletal: No joint pain, No muscle pain Male : No dysuria, No incontinence, No urinary frequency Neurologic: No memory loss, No numbness/tingling, No paralysis, No weakness Psychiatric: No anxiety, No insomnia Heme: No clotting problems, No swollen lymph nodes Endo: No excessive thirst, No excessive urination, No fatigue Skin: No color change, No new/changing skin lesions, No rash Medications Current Inpatient Medications Medications (Trade) Dose Ordered Sig/Loyda Route Start Time Stop Time Status Last Admin Dose Admin Nitroglycerin (Nitrostat Tab) 0.4 mg UD PRN SL 03/18/17 09:45 04/17/17 09:44 Acetaminophen (Tylenol Tab) 500 mg TID PRN PO 03/18/17 09:45 04/17/17 09:44 Albuterol Sulfate (Ventolin 0.083% 2.5MG/3ML Neb) 2.5 mg QID PRN INH 03/18/17 09:45 04/17/17 09:44 Aspirin (Ecotrin Tab) 81 mg DAILY PO 03/19/17 09:00 04/18/17 08:59 03/20/17 09:14 81 MG Digoxin (Lanoxin Tab) 0.125 mg DAILY@1600 PO 03/18/17 16:00 04/17/17 15:59 03/19/17 16:02 0.125 MG Doxazosin Mesylate (Cardura Tab) 1 mg DAILY PO 03/19/17 09:00 04/18/17 08:59 03/20/17 09:13 1 MG Fish Oil (Wood-3 (Purified Fish Oil) Cap) 1 gm TID PO 03/18/17 14:00 04/17/17 13:59 03/20/17 09:13 1 GM Folic Acid (Folvite Tab) 400 mcg DAILY PO 03/19/17 09:00 04/18/17 08:59 03/20/17 09:13 400 MCG Gabapentin (Neurontin Cap) 300 mg HS PO 03/18/17 21:00 04/17/17 20:59 03/19/17 21:48 300 MG Isosorbide Mononitrate (Imdur Ext Rel Tab) 60 mg DAILY PO 03/19/17 09:00 04/18/17 08:59 03/20/17 09:13 60 MG Lisinopril (Zestril Tab) 2.5 mg DAILY PO 03/19/17 09:00 04/18/17 08:59 03/20/17 09:13 2.5 MG Magnesium Oxide (Mag-Ox Tab) 800 mg DAILY PO 03/19/17 09:00 04/18/17 08:59 03/20/17 09:00 800 MG Metoprolol Tartrate (Lopressor Tab) 12.5 mg BID PO 03/18/17 21:00 04/17/17 20:59 03/20/17 09:13 12.5 MG Multivitamins (Multivitamin Tab) 1 tab DAILY PO 03/19/17 09:00 04/18/17 08:59 03/20/17 09:13 1 TAB Simvastatin (Zocor Tab) 40 mg QPM PO 03/18/17 21:00 04/17/17 20:59 03/19/17 21:48 40 MG Cholecalciferol (Vitamin D Tab) 1,000 inter.unit QAM PO 03/19/17 09:00 04/18/17 08:59 03/20/17 09:14 1,000 INTER.UNIT Fluticasone Propionate (Flonase Nasal [place]) 1 sprays DAILY NA 03/19/17 09:00 04/18/17 08:59 03/20/17 09:11 1 SPRAYS Tiotropium Rulo (Spiriva Handihaler Inhaler) 1 puff QAM INH 03/19/17 09:00 04/18/17 08:59 03/20/17 09:00 1 PUFF Hydralazine HCl 5 mg 5 mg Q6 PRN IV. 03/18/17 09:45 04/17/17 09:44 Potassium Chloride/Sodium Chloride (Nss + 20meq KCl 1000ml) 1,000 ml @ 70 mls/hr [id number] IV 03/19/17 09:30 04/18/17 09:29 03/20/17 10:19 125 MLS/HR Heparin Sodium (Porcine) (Heparin Sq 5000 Unit/0.5ml) 5,000 unit Q8 SQ 03/19/17 14:00 04/18/17 13:59 03/20/17 06:23 5,000 UNIT Albuterol/ Ipratropium (Duoneb) 3 ml Q6H PRN INH 03/20/17 08:00 04/19/17 07:59 Potassium/ Phosphorus/Sodium 1 tab 1 tab QID PO 03/20/17 13:00 03/21/17 12:59 03/20/17 11:43 1 TAB Potassium Phosphate/Sodium Chloride (Potassium Phosphate Inj/Nss 500ml) 507 ml @ 144.857 mls/hr TODAY@1030 IV 03/20/17 10:30 03/20/17 13:59 03/20/17 10:45 144.857 MLS/HR Objective Vital Signs Date Time Temp Pulse Resp B/P Pulse Ox O2 Delivery O2 Flow Rate FiO2 03/20/17 12:15 Room Air 03/20/17 12:05 37.2 67 16 112/66 95 Room Air 03/20/17 11:34 36.9 59 16 95 03/20/17 11:06 36.9 59 16 125/66 95 03/20/17 08:00 Room Air 03/20/17 07:37 36.3 63 18 137/83 95 Room Air 03/20/17 04:30 58 03/20/17 04:00 Room Air 03/20/17 03:46 36.6 68 18 136/73 95 Room Air 03/20/17 00:22 36.9 65 16 130/74 93 Room Air 03/20/17 00:00 Room Air 03/19/17 22:30 58 03/19/17 20:00 93 Room Air 03/19/17 19:56 37.1 79 22 122/67 95 Room Air 03/19/17 16:02 79 03/19/17 15:52 92 Room Air 03/19/17 15:26 36.8 79 22 116/70 92 Room Air Physical Exam General Appearance: WD/WN, no apparent distress Eyes: normal inspection, EOMI ENT: normal ENT inspection, hearing grossly normal, pharynx normal Neck: supple, no adenopathy, no JVD Respiratory/Chest: + pertinent finding (coarse breath sounds; no respiratory distress; no inhalers yet this morning) Cardiovascular: regular rate, rhythm, no gallop, no murmur Abdomen: normal bowel sounds, non tender, soft Extremities: non-tender, no pedal edema Neurologic/Psychiatric: alert, normal mood/affect, oriented x 3 Skin: normal color, warm/dry, no rash Laboratory Results Last 24 Hours Test 03/19/17 18:41 03/20/17 00:38 03/20/17 07:04 03/20/17 07:15 Bedside Glucose 133 mg/dl 125 mg/dl 139 mg/dl White Blood Count 7.49 K/uL Red Blood Count 4.54 M/uL Hemoglobin 14.3 g/dL Hematocrit 43.1 % Mean Corpuscular Volume 94.9 fL Mean Corpuscular Hemoglobin 31.5 pg Mean Corpuscular Hemoglobin Concent 33.2 g/dl RDW Standard Deviation 44.2 fL RDW Coefficient of Variation 12.6 % Platelet Count 125 K/uL Mean Platelet Volume 9.7 fL Sodium Level 141 mmol/L Potassium Level 4.3 mmol/L Chloride Level 108 mmol/L Carbon Dioxide Level 25 mmol/L Anion Gap 8.0 mmol/L Blood Urea Nitrogen 30 mg/dl Creatinine 0.91 mg/dl Est Creatinine Clear Calc Drug Dose 48.1 ml/min Estimated GFR () 88.8 Estimated GFR (Non- 76.6 BUN/Creatinine Ratio 33.0 Random Glucose 132 mg/dl Calcium Level 8.4 mg/dl Phosphorus Level 1.3 mg/dl Magnesium Level 1.9 mg/dl Total Bilirubin 1.1 mg/dl Aspartate Amino Transf (AST/SGOT) 16 U/L Alanine Aminotransferase (ALT/SGPT) 18 U/L Alkaline Phosphatase 54 U/L Total Creatine Kinase 77 U/L Creatine Kinase MB 2.3 ng/ml Creatine Kinase MB Ratio 3.0 Troponin I < 0.015 ng/ml Total Protein 6.3 gm/dl Albumin 2.8 gm/dl Globulin 3.5 gm/dl Albumin/Globulin Ratio 0.8 Test 03/20/17 11:17 Bedside Glucose 144 mg/dl Assessment and Plan 86 year old with small bowel obstruction, resolving at this time. NG tube is out and he starting feeding. No acute events overnight, he is currently doing well. Our plan for him is as follows: Small Bowel Obstruction - Resolving - NG tube removed - Surgery has seen the patient; recommend advancing diet as tolerated - Patient tolerated clear liquid diet today - Slow IVF rate to: NSS + 20 mEq KCl at 70 ml/hr VTacc vs SVT with aberrancy - Reviewed rhythm strip; more likely SVT with aberrance - patient completely asymptomatic - Repeat troponin normal x 2 - Mg levels normal - Suspect he has this occasionally at home as well though these are so short- lived it would not influence my management plan Hypophosphatemia - Phos 1.3 today - KPhos 21 mmol IV - Neutra Phos QID x 1 day - Re-check tomorrow Coarse Breath Sounds - No respiratory distress - Notes he followed with pulm but was never given diagnosis; denies hx of COPD/ Emphysema/Bronchitis - Has home inhalers on - Started Duoneb q 6 hours PRN - Hold fluids if tolerating PO; may be early signs of congestion Acute Kidney Injury - Resolved 0.9; was 1.6 on arrival - Better than baseline 1.1 - Drop IVF rate today as above; will discontinue for overnight if he is tolerating PO Atrial Fibrillation - Resume PO metoprolol and Digoxin - Rate controlled at this time - Currently not on anticoagulation; needs to discuss merit of anticoagulation for stroke prevention Type 2 Diabetes Mellitus - Per home list, no evidence of home diabetic medications - BSG AC/HS - Reviewed BSGs in-hospital 120-170; within goal of 120-180 - Hold off on sliding scale at this time; will start if 2 measures > 180 x 2 Hypertension - Lisinopril - Doxazosin - Hydralazine PRN Hyperlipidemia - Continue Simvastatin DVT prophylaxis - SCD - Can start Heparin 5000 TID Code Status - DNR Disposition - OT and PT evaluate and treat - Plan to discharge home if all stable - Downgrade to Med/Surg today Continued [facility] stay due to: inadequate oral pain control Discharge planning: home Reviewed: Pt Seen/Exam by Me History feeling good about getting clear liquid diet this morning Constitutional: denies: fever Respiratory: negative: short of breath Cardiovascular: denies chest pain General Appearance: no apparent distress Respiratory: lungs clear, no respiratory distress Cardiovascular: irregularly irregular Gastrointestinal: normal bowel sounds, non tender, soft, other (ostomy +) Neurologic/Psychiatric: alert, oriented x 3 Assessment/Plan I have reviewed the medical record and performed a history and physical examination of this patient today. I have discussed the case with Dr. Wallace. The above note reflects my findings, conclusions, and recommendations.
[2017-03-20] MEDS: DIGOXIN 0.125 MG TAB PO SCH (16:00)
[2017-03-20] MEDS: SIMVASTATIN 40 MG TAB PO SCH (21:46)
[2017-03-20] MEDS: GABAPENTIN 300 MG CAP PO SCH (21:47)
[2017-03-21] MEDS: HEPARIN SOD 5000 UNIT/0.5 ML CARP SQ SCH (05:53)
--- NOTE | 2017-03-21 06:43 | Surgery Progress Note ---
Surgery Progress Note Date of Service March 21, 2017. Subjective + feeling well, No nausea, No vomiting significant stoma output- much gas in bag Objective Vital Signs: Date Time Temp Pulse Resp B/P Pulse Ox O2 Delivery O2 Flow Rate FiO2 03/20/17 23:19 Room Air 03/20/17 22:49 36.8 63 16 135/69 94 Room Air 03/20/17 16:00 60 03/20/17 15:24 36.6 60 16 120/70 92 Room Air 03/20/17 15:20 Room Air 03/20/17 12:15 Room Air 03/20/17 12:05 37.2 67 16 112/66 95 Room Air 03/20/17 11:34 36.9 59 16 95 03/20/17 11:06 36.9 59 16 125/66 95 03/20/17 08:00 Room Air 03/20/17 07:37 36.3 63 18 137/83 95 Room Air General Appearance: no apparent distress Respiratory/Chest: no respiratory distress Abdomen: soft Laboratory Results: Results Past 24 Hours Test 03/20/17 07:04 03/20/17 07:15 03/20/17 11:17 03/21/17 04:44 Range/Units Bedside Glucose 139 144 70-99 mg/dl White Blood Count 7.49 4.8-10.8 K/uL Red Blood Count 4.54 4.7-6.1 M/uL Hemoglobin 14.3 14.0-18.0 g/dL Hematocrit 43.1 42-52 % Mean Corpuscular Volume 94.9 80-100 fL Mean Corpuscular Hemoglobin 31.5 25-34 pg Mean Corpuscular Hemoglobin Concent 33.2 32-36 g/dl RDW Standard Deviation 44.2 36.4-46.3 fL RDW Coefficient of Variation 12.6 11.5-14.5 % Platelet Count 125 130-400 K/uL Mean Platelet Volume 9.7 7.4-10.4 fL Sodium Level 141 136-145 mmol/L Potassium Level 4.3 3.5-5.1 mmol/L Chloride Level 108 98-107 mmol/L Carbon Dioxide Level 25 21-32 mmol/L Anion Gap 8.0 3-11 mmol/L Blood Urea Nitrogen 30 7-18 mg/dl Creatinine 0.91 0.60-1.40 mg/dl Est Creatinine Clear Calc Drug Dose 48.1 ml/min Estimated GFR () 88.8 Estimated GFR (Non- 76.6 BUN/Creatinine Ratio 33.0 10-20 Random Glucose 132 70-99 mg/dl Calcium Level 8.4 8.5-10.1 mg/dl Phosphorus Level 1.3 2.5-4.9 mg/dl Magnesium Level 1.9 1.8-2.4 mg/dl Total Bilirubin 1.1 0.2-1 mg/dl Aspartate Amino Transf (AST/SGOT) 16 15-37 U/L Alanine Aminotransferase (ALT/SGPT) 18 12-78 U/L Alkaline Phosphatase 54 45-117 U/L Total Creatine Kinase 77 39-308 U/L Creatine Kinase MB 2.3 0.5-3.6 ng/ml Creatine Kinase MB Ratio 3.0 0-3.0 Troponin I < 0.015 0-0.045 ng/ml Total Protein 6.3 6.4-8.2 gm/dl Albumin 2.8 3.4-5.0 gm/dl Globulin 3.5 2.5-4.0 gm/dl Albumin/Globulin Ratio 0.8 0.9-2 Assessment & Plan 03/21/17- doing well- adv to low fiber diet - can d/c home from surgical standpoint- 03/20/17- remove NG, start clear liquids- advance diet as tolerated resolving partial sbo 03/19/17- adm with sbo- seems to have increased stoma output leave NG today- clamping schedule. ice only for now hopefully can avoid surgery 03/20/17- remove NG, start clear liquids- advance diet as tolerated resolving partial sbo 03/19/17- adm with sbo- seems to have increased stoma output leave NG today- clamping schedule. ice only for now hopefully can avoid surgery
[2017-03-21 07:33] LABS: HEMATOCRIT 40.3 % (42-52); MEAN CELL VOLUME 92.9 fL (80-100); MEAN CORPUSCULAR HEMOGLOBIN 31.1 pg (25-34); MEAN CORPUSCULAR HGB CONC 33.5 g/dl (32-36); MEAN PLATELET VOLUME 9.3 fL (7.4-10.4); PLATELET COUNT 133 K/uL (130-400); RED BLOOD COUNT 4.34 M/uL (4.7-6.1); WHITE BLOOD COUNT 5.95 K/uL (4.8-10.8)
[2017-03-21 07:40] VITALS: BP 120/74; PULSE 64; TEMP 36.7; O2SAT 95
[2017-03-21 08:11] LABS: BUN/CREATININE RATIO 24.3 (10-20); CREATININE 0.82 mg/dl (0.60-1.40); MAGNESIUM 1.9 mg/dl (1.8-2.4); POTASSIUM 4.1 mmol/L (3.5-5.1)
[2017-03-21 08:22] LABS: ALB/GLOB RATIO 0.8 (0.9-2); PHOSPHORUS 1.5 mg/dl (2.5-4.9)
[2017-03-21 08:27] LABS: CALCIUM 8.1 mg/dl (8.5-10.1)
[2017-03-21] MEDS ORDERED: POTASSIUM PHOS 3 MMOL/1 ML INFUSION IV ONE (08:45)
[2017-03-21] MEDS: OMEGA-3 (PURIFIED FISH OIL) 1 GM CAP PO SCH ×2 (09:00→09:04)
[2017-03-21] MEDS ORDERED: POTASSIUM PHOSPHATE INJ 21 MMOL in SODIUM CHLORIDE 0.9% 500ML 500 ML IV ONE (09:00)
[2017-03-21] MEDS: FLUTICASONE PROPIONATE NA SPR 16 GM BTL SCH (09:01)
[2017-03-21] MEDS: TIOTROPIUM BROMIDE 5 PUFF/90 MCG INH INH SCH (09:02)
[2017-03-21] MEDS: FoLIC ACID TAB 400 MCG TAB PO SCH (09:02)
[2017-03-21] MEDS: ASPIRIN 81 MG ECTAB PO SCH (09:02)
[2017-03-21] MEDS: MULTIVITAMIN TAB PO SCH (09:03)
[2017-03-21] MEDS: MAGNESIUM OXIDE 400 MG TAB PO SCH (09:03)
[2017-03-21] MEDS: CHOLECALCIFEROL 1000 INTER.UNIT TAB PO SCH (09:04)
[2017-03-21] MEDS: POT PHOSPHATE MONOBASIC W/ SOD TAB PO SCH (09:04)
[2017-03-21 09:05] VITALS: BP 128/74; PULSE 75
[2017-03-21] MEDS: ISOSORBIDE MONONITRATE 60 MG TABCR PO SCH (09:07)
[2017-03-21] MEDS: METOPROLOL TARTRATE 25 MG TAB PO SCH (09:07)
[2017-03-21] MEDS: DOXAZosin TAB 1 MG TAB PO SCH (09:08)
[2017-03-21] MEDS: LISINOPRIL 2.5 MG TAB PO SCH (09:08)
--- NOTE | 2017-03-21 10:17 | Discharge Instructions ---
Discharge Instructions Date of Service March 21, 2017. Admission Reason for Admission: Small Bowel Obstruction Discharge Discharge Diagnosis / Problem: Small Bowel Obstruction Discharge Goals Goal(s): Decrease discomfort, Improve function Activity Recommendations Activity Limitations: resume your previous activity Lifting Limitations: gradually increase as tolerated Exercise/Sports Limitations: as tolerated May Resume Sexual Activity: when tolerated . Instructions / Follow-Up Instructions / Follow-Up You came in with a small bowel obstruction. We consulted Dr. Bolanos from surgery. We you treated with IV fluids as well as an nasogastric tube placement. We kept you fasting until we noted that you were starting to have output in your colostomy which was reassuring. At that point we were able to clamp the remove, then remove, then gradually re-start your diet. You tolerated the process very well. As you go home, gradually resume your regular diet. Be cautious not to eat high bulk foods at the outset. Try to eat soft foods and liquids in smaller quantities over the coming days and gradually increase to your regular diet as you tolerate. If your symptoms fail to improve, acutely worsen, please seek medical attention immediately by either calling Dr. Newell/Dr. Wallace's office or going to your nearest emergency department. Otherwise, please see your primary care provider in 3-5 days to ensure that your symptoms continue to improve. It was a pleasure to be involved in your care and we wish you all the best. Current Hospital Diet Patient's current hospital diet: Low Fiber Diet Discharge Diet Recommended Diet: Regular Diet Pending Studies Studies pending at discharge: no Medical Emergencies . Who to Call and When: Medical Emergencies: If at any time you feel your situation is an emergency, please call 911 immediately. . Non-Emergent Contact Non-Emergency issues call your: Primary Care Provider Call Non-Emergent contact if: your pain is not controlled, your pain is worsening . . "Provider Documentation" section prepared by Pako Wallace. . VTE Core Measure Inpt VTE Proph given/why not?: Unfractionated heparin SQ, SCD's (until s/p surgical eval)
[2017-03-21 11:07] VITALS: O2SAT 95
[2017-03-21 11:14] VITALS: BP 159/71; PULSE 91; O2SAT 94
[2017-03-21] MEDS: NSS + 20MEQ KCL 1000ML 1,000 ML IV SCH (13:05)
[2017-03-21 13:18] VITALS: BP 159/71; PULSE 91; TEMP 36.7; O2SAT 94
--- NOTE | 2017-03-21 13:39 | Discharge Summary ---
Discharge Summary Date of Service March 21, 2017. (Pako Wallace MD) Discharge Summary Admission Date: March 18, 2017 at 09:41 Discharge Date: March 21, 2017 Discharge Disposition: Home Principal Diagnosis: Small bowel obstruction Problems/Secondary Diagnoses: CT OF THE ABDOMEN AND PELVIS WITHOUT CONTRAST, STONE PROTOCOL CLINICAL HISTORY: Diffuse abdominal pain, nausea and vomiting. COMPARISON STUDY: CT of the abdomen and pelvis April 06, 2011. TECHNIQUE: Helical axial images of the abdomen and pelvis were obtained without IV or oral contrast according to renal stone protocol. FINDINGS: Visualized portions of the lower chest demonstrate moderate cardiomegaly. Traction bronchiectasis and subpleural reticulation flexed chronic interstitial lung disease. There is no pneumatosis, free air or portal venous gas. Evaluation of the abdomen and pelvis is suboptimal given the lack of IV and oral contrast. There are bilateral renal calculi which measure up to 5 mm. There are no ureteral calculi. There is no hydronephrosis. Unenhanced images of liver, spleen, adrenal glands and pancreas are unremarkable. 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 There is pancolonic diverticulosis without evidence for acute diverticulitis. The proximal to mid small bowel is fluid-filled and mildly dilated. There is a small bowel feces sign with transition point within the anterior aspect of the mid pelvis shown on axial image 321 of 436. This reflects a transition point. Distal small bowel is decompressed. There is no lymphadenopathy. IMPRESSION: 1. Findings consistent with a partial small bowel obstruction with transition point within the mid ileum within the anterior pelvis. Small bowel feces sign with mild upstream fluid-filled dilated small bowel and decompressed distal small bowel. Trace associated ascites. No pneumatosis, free air or portal venous gas. 2. Bilateral nephrolithiasis. No ureteral calculi or hydronephrosis. 3. Multiple bilateral renal lesions. These are suboptimally assessed on this unenhanced exam but measure water attenuation and likely reflect cysts. Electronically signed by: Kyle Quach M.D. 03/18/2017 8:05 AM Dictated Date/Time: 03/18/2017 7:56 AM Immunizations: Have You Had Influenza Vaccine: Yes History of Tetanus Vaccine?: Yes History of Pneumococcal: Yes History of Hepatitis B Vaccine: Unknown Procedures: NG tube placement Consultations: General Surgery (Pako Wallace MD) Medication Reconciliation Continued Medications: Acetaminophen (Tylenol) 500 Mg Tab 500 MG PO TID PRN for Pain or Fever, TAB Albuterol Sulf (Proventil 0.083% 2.5MG/3ML) 2.5 Mg/3 Ml Nebu 2.5 MG INH QID PRN for SOB/Wheezing, EA Ascorbic Acid (Ascorbic Acid) 500 Mg Tab 500 MG PO TID, TAB Aspirin (Aspirin Ec) 81 Mg Tab 81 MG PO DAILY Cholecalciferol (Vitamin D3) 1,000 Unit Cap 1000 INTER.UNIT PO DAILY Digoxin (Digoxin) 0.125 Mg Tab 1 TAB PO DAILY@1600 Doxazosin Mesylate (Cardura) 4 Mg Tab 4 MG PO DAILY, TAB Dutasteride (Dutasteride) 0.5 Mg Cap 0.5 MG PO DAILY Fish Oil ([place]-3) 1 Ea Cap 1000 MG PO TID Folic Acid (Folvite) 400 Mcg Tab 400 MCG PO DAILY, TAB Gabapentin (Gabapentin) 300 Mg Cap 300 MG PO HS Ganciclovir Ophthalmic (Zirgan) 0.15 % Gel 1 APPLN OPL BID PRN for Dry Eye Ytbhzpagmpk-Nkrekmutpnk-Gal C- (Glucosamine Chondroitin) 1 Tab Tab 1 TAB PO BID Isosorbide Mononitrate Ext Rel (Imdur Ext Rel) 60 Mg Ertab 60 MG PO DAILY Lactobacillus Acidophilus (Lactinex) Tab 1 TAB PO TIDM, TAB Lisinopril (Zestril) 2.5 Mg Tab 1 TAB PO DAILY Magnesium Oxide (Mag-Ox) 400 Mg Tab 800 MG PO DAILY, TAB Metoprolol Tartrate (Lopressor) 25 Mg Tab 12.5 MG PO BID, TAB Mometasone Furoate (Nasal) (Mometasone Furoate) 50 Mcg/Act Spr 2 SPRAYS NA DAILY PRN for Nasal Congestion Multivitamin (Multivitamin) Tab 1 TAB PO DAILY Nitroglycerin (Nitrostat) 0.4 Mg Tab 0.4 MG UT UD PRN for Chest Pain S-Adenosylmethionine (Héctor E) 400 Mg Tab 400 MG PO QAM Simvastatin (Zocor) 80 Mg Tab 40 MG PO QPM Tiotropium [place] Monohydrate (Spiriva Respimat) 1.25 Mcg/Act Aer 1 PUFF INH DAILY Tobramycin-Dexamethasone (Tobradex St) 1 Hallie Hallie 1 DROP OPL BID Valacyclovir Hcl (Valtrex) 1 Gm Tab 1 GM PO BID Discharge Exam A 10 point review of systems was negative unless stated above. Physical Exam: General Appearance: WD/WN, no apparent distress Eyes: normal inspection, EOMI ENT: normal ENT inspection, hearing grossly normal, pharynx normal Neck: supple, no adenopathy, no JVD Respiratory/Chest: lungs clear, no respiratory distress Cardiovascular: regular rate, rhythm, no gallop, no murmur Abdomen / GI: normal bowel sounds, non tender, soft Extremities: no calf tenderness, no pedal edema Neurologic/Psychiatric: alert, normal mood/affect, oriented x 3 Skin: normal color, warm/dry, + rash Lymphatic: no adenopathy (Pako Wallace MD) Review of Systems: Constitutional: No fever Respiratory: No shortness of breath Cardiovascular: No chest pain Abdomen: No nausea, No pain, No vomiting Physical Exam: General Appearance: no apparent distress Respiratory/Chest: lungs clear, no respiratory distress Cardiovascular: + irregularly irregular Abdomen / GI: soft Neurologic/Psychiatric: alert, oriented x 3 Skin: warm/dry (Mindy Ramos M.D.) Hospital Course Pleasant 86 year old gentleman presenting for small bowel obstruction. His hospital course was as follows: Small Bowel Obstruction - NG tube placed; patient kept NPO and on IVF - Stoma output gradually increased; NG tube, clamped, pulled - Diet advanced as tolerated; doing well on low fibre diet at discharge SVT with aberrancy - Occasional bouts of HR 150 for 30-40 s on 2 occasions - Asymptomatic - QRS morphology unchanged compared to when in NSR - Electrolytes optimized; cardiac enzymes remained unchanged; no further action pursued Hypophosphatemia - Repleted - 2.9 at discharge Acute Kidney Injury - 1.6 on arrival - Improved to baseline with IV rehydration Atrial Fibrillation - Resumed all PO meds at discharge - Noted patient not on anticoagulation; for PCP to discuss risk/benefits Type 2 Diabetes Mellitus - BSG stable during admission to goal 120-180 Hypertension - Continued Lisinopril, Doxazosin - Hydralazine PRN Hyperlipidemia - Continued Simvastatin DVT prophylaxis - SCD and Heparin 5000 TID Code Status - DNR Disposition - No medication changes - No follow labs or studies - Discharged back home - Recommended follow-up with PCP, Dr. Newell in 1 week to ensure he continues to improve Total Time Spent: Less than 30 minutes This includes examination of the patient, discharge planning, medication reconciliation, and communication with other providers. (Pako Wallace MD) I have reviewed the medical record and performed a history and physical examination of this patient today. I have discussed the case with Dr Wallace. The above note reflects my findings, conclusions, and recommendations. Total Time Spent: Greater than 30 minutes (35) (Mindy Ramos M.D.) Discharge Instructions Please refer to the electronic Patient Visit Report (Discharge Instructions) for additional information. (Pako Wallace MD) Follow-Up PCP in 1 week (Pako Wallace MD) Additional Copies To Amanda Newell M.D.; Pako Wallace MD
== END 2017-03-21 14:18 | disposition home health service (06) | DRG 389 ==
LOC: ENRESERVTM → ENRESERVDT → EDBD 07:17 → C.EDB 07:18 → C.2T 09:41 → C.MSW 03-20 10:47 → EDBEDREQSVC 03-20 10:58
PROVIDERS: ADMIT Family Medicine; ATTEND Family Medicine
DX: K56.60 Unspecified intestinal obstruction (principal); N17.9 Acute kidney failure, unspecified; I47.1 Supraventricular tachycardia; E83.39 Other disorders of phosphorus metabolism; E86.0 Dehydration; I48.91 Unspecified atrial fibrillation; I11.9 Hypertensive heart disease without heart failure; E11.40 Type 2 diabetes mellitus with diabetic neuropathy, unspecified; E78.5 Hyperlipidemia, unspecified; Z51.81 Encounter for therapeutic drug level monitoring; Z79.899 Other long term (current) drug therapy; Z79.82 Long term (current) use of aspirin; Z93.3 Colostomy status; Z66 Do not resuscitate; Z91.81 History of falling; Z87.891 Personal history of nicotine dependence; Z82.49 Family history of ischemic heart disease and other diseases of the circulatory system; Z80.0 Family history of malignant neoplasm of digestive organs

== ENCOUNTER → 2017-07-20 | Outpatient (CLI) | payer BC ==
[~2017-07-20] MED LIST changes: -LISI-729 PO; +LISI-789 PO; +LNX125 PO; +MAGN400T5 PO
[2017-07-20 17:45] LABS: BASO % 0.5 %; BASO ABS # 0.04 K/uL (0-0.2); COMPLETE YES; EOS % 5.2 %; HEMATOCRIT 44.5 % (42-52); IG% 0.4 %; LYMPH % 27.4 %; LYMPH ABS # 2.21 K/uL (1.2-3.4); MEAN CELL VOLUME 91.4 fL (80-100); MEAN CORPUSCULAR HEMOGLOBIN 31.6 pg (25-34); MEAN CORPUSCULAR HGB CONC 34.6 g/dl (32-36); MEAN PLATELET VOLUME 9.4 fL (7.4-10.4); MONO % 7.7 %; NEUT % 58.8 %; PLATELET COUNT 155 K/uL (130-400); RED BLOOD COUNT 4.87 M/uL (4.7-6.1); WHITE BLOOD COUNT 8.07 K/uL (4.8-10.8)
[2017-07-20 18:14] LABS: ALT/SGPT 21 U/L (12-78); BLOOD UREA NITROGEN 26 mg/dl (7-18); BUN/CREATININE RATIO 23.4 (10-20); CALCIUM 10.6 mg/dl (8.5-10.1); CARBON DIOXIDE 28 mmol/L (21-32); CHLORIDE 103 mmol/L (98-107); GLUCOSE 166 mg/dl (70-99); POTASSIUM 4.1 mmol/L (3.5-5.1); SODIUM 137 mmol/L (136-145)
[2017-07-20 18:17] LABS: ALB/GLOB RATIO 0.9 (0.9-2); ALKALINE PHOSPHATASE 80 U/L (45-117); AST/SGOT 16 U/L (15-37)
== END | disposition home or self-care (01) ==
LOC: C.LAB 17:02
PROVIDERS: ATTEND Family Medicine
DX: R42 Dizziness and giddiness (principal)

== ENCOUNTER → 2017-10-02 | Outpatient (CLI) | payer BC ==
--- NOTE | 2017-10-02 14:27 | DIAGNOSTIC IMAGING REPORT ---
CHEST 2 VIEWS ROUTINE CLINICAL HISTORY: BRONCHIECTASIS,COUGH,INTERSTITIAL PULMONARY DISEASE COMPARISON STUDY: December 01, 2016 FINDINGS: The cardiac and mediastinal contours remain stable. There is no failure. There are no pleural effusions. There is no focal pulmonary consolidation. There is subpleural reticulation, consistent with underlying interstitial lung disease.[ IMPRESSION: Stable subpleural interstitial reticulation, consistent with underlying interstitial lung disease. No acute findings. Electronically signed by: Clem Siddiqi M.D. 10/02/2017 2:26 PM Dictated Date/Time: 10/02/2017 2:24 PM
== END | disposition home or self-care (01) ==
LOC: C.RAD1850 13:53
PROVIDERS: ATTEND Physician Assistant
DX: J47.9 Bronchiectasis, uncomplicated (principal); R05 Cough; J84.9 Interstitial pulmonary disease, unspecified

== ENCOUNTER → 2018-01-10 | Outpatient (CLI) | payer BC ==
[~2018-01-10] MED LIST changes: +GABA-1219 PO; -GABA1CAP4 PO
--- NOTE | 2018-01-10 11:58 | DIAGNOSTIC IMAGING REPORT ---
CHEST 2 VIEWS ROUTINE CLINICAL HISTORY: 87 years-old Male presenting with COUGH. TECHNIQUE: PA and lateral views of the chest were obtained. COMPARISON: 10/02/2017. FINDINGS: Atherosclerosis of the aortic arch. Cardiac silhouette normal in size. Persistent peripheral predominant reticulonodular opacities. Mildly low lung volumes, unchanged. No new focal opacity. No pleural effusion or pneumothorax. Exaggerated thoracic kyphosis. Vertebral body height loss of a mid to lower thoracic vertebral body level is unchanged in appearance from prior exam. Upper abdomen normal. IMPRESSION: 1. No chronic fibrotic lung disease. No superimposed infiltrate. Electronically signed by: Errol Parada M.D. 01/10/2018 11:56 AM Dictated Date/Time: 01/10/2018 11:54 AM
== END | disposition home or self-care (01) ==
LOC: C.RAD1850 11:38
PROVIDERS: ATTEND Physician Assistant
DX: R05 Cough (principal)

== ENCOUNTER 2018-12-22 17:15 | Inpatient (IN) ==
[2018-12-22] MEDS ORDERED: ACETAMINOPHEN 500 MG TAB PO STA (17:26)
[2018-12-22] MEDS ORDERED: LEVALBUTEROL 1.25MG/0.5ML NEB NEB STA (17:30)
[2018-12-22 17:47] LABS: Hemoglobin 15.7 g/dL (14.0-18.0); Mean Corpuscular Hgb Conc 34.9 g/dL (32-36); Mean Corpuscular Volume 91.8 fL (80-100); RDW Coefficient of Variation 12.6 % (11.5-14.5); RDW Standard Deviation 42.4 fL (36.4-46.3); White Blood Count 10.97 K/uL (4.8-10.8)
[2018-12-22 17:50] LABS: iSTAT Creatinine 0.8 mg/dl (0.6-1.3); iSTAT Ionized Calcium 1.11 mmol/l (1.12-1.32); iSTAT Potassium 4.3 mEq/L (3.3-5.0)
[2018-12-22 17:57] LABS: INR 1.1 (0.9-1.1); Partial Thromboplastin Time 26.8 Seconds (21.0-31.0); Prothrombin Time 10.9 Seconds (9.0-12.0)
[2018-12-22 18:05] LABS: Alanine Aminotransferase 46 U/L (12-78); Albumin Level 3.1 gm/dl (3.4-5.0); Aspartate Aminotransferase 33 U/L (15-37); BUN Creatinine Ratio 15.1 (10-20); Blood Urea Nitrogen 16 mg/dl (7-18); Calcium 9.3 mg/dl (8.5-10.1); Carbon Dioxide 21 mmol/L (21-32); Chloride 98 mmol/L (98-107); Creatinine Clr Calc Pharmacy 38.3 ml/min; Est GFR (African American) 73.6; Est GFR (Non-African American) 63.5; Glucose 236 mg/dl (70-99); Potassium 4.3 mmol/L (3.5-5.1); Sodium 131 mmol/L (136-145)
[2018-12-22 18:10] LABS: Albumin Globulin Ratio 0.8 (0.9-2); Alkaline Phosphatase 104 U/L (45-117); Bilirubin,Total 0.9 mg/dl (0.2-1); Creatine Kinase 63 U/L (39-308); Globulin 3.8 gm/dl (2.5-4.0); Total Protein 6.9 gm/dl (6.4-8.2); Troponin I < 0.015 ng/ml (0-0.045)
--- NOTE | 2018-12-22 18:10 | XRay Report ---
XR chest 1V portable HISTORY: 88 years-old Male Sepsis acute sepsis COMPARISON: Chest radiographs 12/02/2018, CTA chest 02/04/2017, chest radiograph 07/03/2018. TECHNIQUE: Portable AP view of the chest FINDINGS: Cardiac mediastinal and hilar silhouettes are unchanged. Calcification the thoracic aortic arch. [employer] jose angel interstitial coarsening without pneumothorax, pleural effusion or overt pulmonary edema. Degenera tive changes of the shoulders and spine. IMPRESSION: 1. No acute process. 2. Chronic interstitial lung disease. The above report was generated using voice recognition software. It may contain grammatical, syntax o r spelling errors. Electronically signed by: Ulisses Sanchez M.D. 12/22/2018 6:09 PM
[2018-12-22 18:16] LABS: Basophils # (auto) 0.03 K/uL (0-0.2); Basophils % (auto) 0.3 %; Eosinophils # (auto) 0.05 K/uL (0-0.5); Eosinophils % (auto) 0.5 %; Immature Granulocytes # (auto) 0.04 K/uL (0.00-0.02); Immature Granulocytes % (auto) 0.4 %; Lymphocytes # (auto) 0.88 K/uL (1.2-3.4); Mean Platelet Volume 9.5 fL (7.4-10.4); Monocytes # (auto) 0.99 K/uL (0.11-0.59); Neutrophils # (auto) 8.98 K/uL (1.4-6.5); Neutrophils % (auto) 81.8 %; Platelet Count 99 K/uL (130-400); Platelet Estimate Decreased (Normal)
[2018-12-22] MEDS ORDERED: PIPERACILLIN/TAZOBACTAM 4.5 GM/120 ML BAG IV ONE (18:21)
[2018-12-22] MEDS ORDERED: SODIUM CHLORIDE 0.9% 1000ML 1,000 ML IV ONE (18:21)
[2018-12-22] MEDS ORDERED: LEVOFLOXACIN/D5W 750 MG/150 ML BAG IV STA (18:21)
[2018-12-22] MEDS ORDERED: methylPREDNISolone 60 MG in SYRINGE 1 ML IV STA (18:21)
[2018-12-22] MEDS ORDERED: ONDANSETRON INJ 2 MG/ML 2 ML VIAL IV STA (18:21)
[2018-12-22] MEDS ORDERED: PIPERACILL/TAZOBAC CONSULT ACTIVE PRN (18:21)
[2018-12-22 18:32] LABS: Influenza A virus by PCR Neg for Influ A (Neg); Influenza B virus by PCR Neg for Influ B (Neg)
[2018-12-22] MEDS ORDERED: methylPREDNISolone 125 MG/2 ML VIAL ONE (18:57)
[2018-12-22] MEDS ORDERED: OPTIRAY 320 125ml IV PRN (18:58)
--- NOTE | 2018-12-22 19:18 | CT Scan Report ---
CT angio chest PE protocol CT DOSE: 196.51 mGy.cm HISTORY: 88 years-old Male with PE. Acute chest pain and shortness of breath TECHNIQUE: Multiple CTA images of the chest were obtained after the intravenous administration of 116 ml Optiray 320. Coronal and sagittal MIPS were obtained from the axial data set and were submitted for review. All measurements were obtained according to NASCET criteria. A dose lowering technique w as utilized adhering to the principles of ALARA. COMPARISON: Radiograph of same day, CT chest 01/25/2017. FINDINGS: CTA: Moderate multichamber cardiac enlargement. No pericardial effusion. Coronary arterial calcifications are noted. No thoracic aortic aneurysm or dissection. Patency of the imaged great vessels. Dilation o f the main pulmonary arteries suggest probable pulmonary arterial hypertension. Dilation of the pulmo nary arterial tree is limited secondary to respiratory motion artifact. Arterial tree is opacified to the subsegmental branches, however the distal lobar, segmental and subsegmental branches are not wel l seen secondary to respiratory motion artifact. No central pulmonary emboli identified. CT CHEST: Subcentimeter thyroid nodules are noted. Nonspecific subcarinal adenopathy, with nodes measuring up t o 1.4 x 1.9 cm, previously 1.1 x 1.6 cm. Trace left pleural effusion. Bibasilar predominant subpleural reticulation with subpleural groundglas s densities, honeycombing and traction bronchiectasis. Bilateral bronchial wall thickening with assoc iated tracheobronchial secretions. Evaluation of the lung parenchyma is limited secondary to respirat ory motion artifact. No pneumothorax. No definite focal airspace consolidation to suggest acute pneum onitis. Mild thickening of the interlobular septa. No new suspicious pulmonary nodules or masses iden tified. No acute process of the imaged upper abdomen. Soft tissues are within normal limits. Bones appear to be intact. No suspicious lytic or blastic bony lesions. Degenerative changes of the shoulders and spi ne. IMPRESSION: 1. Limited exam secondary to respiratory motion artifact. No central pulmonary embolus identified. 2. Cardiomegaly with mild thickening of the intralobular septa, possibly reflecting mild pulmonary ed casimiro. 3. Trace left pleural effusion. 4. 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 5. Tracheobronchial secretions with mucous plugging seen most prominently within the basal right lowe r lobe. 6. Mild subcarinal adenopathy, likely reactive. The above report was generated using voice recognition software. It may contain grammatical, syntax o r spelling errors. Electronically signed by: Ulisses Sanchez M.D. 12/22/2018 7:17 PM
--- NOTE | 2018-12-22 20:38 | History & Physical Report ---
Date of Service December 22, 2018 Assessment & Plan (1) Sepsis: Mr. Freed is an 88 year old, very pleasant gentleman with a history of interstitial lung disease, paroxysmal atrial fibrillation, coronary artery disease s/p NC in 1979, hypercholesterolemia, hypertension, hx of diverticulitis w/bowel perforation s/p colostomy, diabetes mellitus type 2, hx of pancreatitis, and BPH who presents to the emergency department due to fever, chills, cough and weakness. ED course: 1 L normal saline bolus, 4.5 g of IV Zosyn, 750 mg of IV Levaquin, 60 mg of IV methylprednisolone,, 4 mg IV Zofran, levalbuterol nebs, 1g of acetaminophen PO. -admit to med/surg with telemetry monitoring -pt meets criteria for sepsis w/fever, tachycardia, & elevated respiratory rate, with presumed source of infection being pneumonia -[id number] lactic acid elevated at 3.49, will trend q6h -Influenza negative -O2 as needed (not on oxygen at home) -CTA negative for pulmonary embolism, but does report chronic interstitial lung disease w/mucous plugging seen mostly within right lower lobe -Patient received IV Zosyn and IV Levaquin in the emergency department. Given he failed his outpatient regimen with doxycycline, will continue IV Zosyn, as well as IV azithromycin (beginning tomorrow) and IV vancomycin -MRSA swab ordered -Blood cultures x2 drawn and pending, will also order sputum culture -Patient received 60 mg of IV Solu-Medrol in the emergency department, will continue 40 mg of p.o. 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 Espinoza -> pt has had Holter monitor recently to evaluate for tachy-ariana syndrome. No plan for pacemaker placement at this time. CAD -s/p NC in 1979, no hx of stents -continue aspirin, metoprolol and isosorbide mononitrate Hypertension -per review of outpatient records, Dr. Newell recently discontinued Mr. Freed' lisinopril due to hypotension -hold parameters placed on metoprolol and isosorbide mononitrate given hypotensive in ED Hypercholesterolemia -Continue home simvastatin Diabetes Mellitus 2 -Hold home glipizide -BSG AC/HS and placed on insulin sliding scale -Glucose level 244 on admission, anticipate hyperglycemia with use of steroids. Can tighten sliding scale if needed BPH/Urinary Incontinence -follows w/Dr. Pena -Continue dutasteride -Hold doxazosin, given relative hypotension in ED Code status: FULL DVT Prophylaxis: heparin 5,000 SQ q12h Disposition: admit to med/surg w/telemetry monitoring F/E/N: Diabetic Diet. Sodium low at 133. Placed on Ringer's Lactate at 100 mls/hr x2 bags. (2) Pneumonia: (3) Paroxysmal atrial fibrillation: (4) ILD (interstitial lung disease): (5) BPH (benign prostatic hyperplasia): (6) Hyperlipidemia: (7) Hypertension: (8) Diabetes: (9) CAD (coronary artery disease): History of Present Illness Primary Care Provider: Amanda Newell Mr. Freed is an 88 year old, very pleasant gentleman with a history of interstitial lung disease, paroxysmal atrial fibrillation, coronary artery disease s/p NC in 1979, hypercholesterolemia, hypertension, hx of diverticulitis w/bowel perforation s/p colostomy, diabetes mellitus type 2, hx of pancreatitis, and BPH who presents to the emergency department due to fever, chills, cough and weakness. He states that he saw Suzan Mora [whom he follows for for his interstitial pulmonary disease] on December 02, who put him on a course of doxycycline as well as a steroid taper for an increasingly productive cough. He states that this cleared up most of his mucus, but he was still having some trouble breathing. Today, he states that he had a worsening productive cough [denies hemoptysis], and endorses fever with chills, as well as nausea and dry heaves. His states that he looked as though he was "crumbling" and nearly fell, although she was able to prevent this. He denies chest pain, palpitations, and abdominal pain. He states he was unable to take his usual home meds this morning due to nausea. Of note, he is a prior smoker. He quit in 1963, however he had a [id number] history, and states he used to smoke cigarettes, cigars and chew tobacco. He d enies use of alcohol or recreational drugs. With regards to his interstitial lung disease, this is attributed to his asbestos exposure during the [place] War. 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 He has a history of paroxysmal afib. but has been in sinus rhythm during most recent clinic visits. Not on anticoagulation due to fall risk. Allergies Allergy/AdvReac Type Severity Reaction Status Date / Time opium tincture Allergy Unknown unknown Verified 07/22/18 21:20 morphine AdvReac Intermediate CONFUSION Verified 07/22/18 21:20 Home Medications Home Medications Medication Instructions Recorded Confirmed Type Calcium 600 + D(3) 1 tab PO DAILY 07/01/18 12/22/18 History Glucosamine Complex-MSM 1,500 mg PO BID 07/01/18 12/22/18 History Lactobacillus acidophilus 0 mg PO DAILY 07/01/18 12/22/18 History [Acidophilus] [place]-3 Fish Oil 1 cap PO TID 07/01/18 12/22/18 History Refresh Eye Itch Relief 1 drp OPB Q12 PRN 07/01/18 12/22/18 History Héctor-E 0 mg PO BID 07/01/18 12/22/18 History Spiriva Respimat 2 puff INHALATION BID 07/01/18 12/22/18 History Symbicort 2 puff INHALATION BID 07/01/18 12/22/18 History albuterol sulfate 1 dose INHALATION Q4H PRN 07/01/18 12/22/18 History ascorbic acid (vitamin C) [Vitamin 500 mg PO TID 07/01/18 12/22/18 History C] aspirin [Aspirin Low Dose] 81 mg PO DAILY 07/01/18 12/22/18 History cholecalciferol (vitamin D3) 1,000 unit PO DIRECTED 07/01/18 12/22/18 History [Vitamin D3] digoxin 0.125 mg PO DAILY 07/01/18 12/22/18 History doxazosin 2 mg PO DAILY 07/01/18 12/22/18 History dutasteride 0.5 mg PO DAILY 07/01/18 12/22/18 History flunisolide 2 spray INTRANASAL DAILY 07/01/18 12/22/18 History folic acid 0.4 mg PO DAILY 07/01/18 12/22/18 History glipizide 10 mg PO DAILY 07/01/18 12/22/18 History guaifenesin [Mucinex] 600 mg PO Q12H PRN 07/01/18 12/22/18 History ibuprofen 400 mg PO QID 07/01/18 12/22/18 History isosorbide mononitrate 60 mg PO DAILY 07/01/18 12/22/18 History lisinopril 5 mg PO DAILY 07/01/18 12/22/18 History magnesium oxide 400 mg PO DAILY 07/01/18 12/22/18 History metoprolol tartrate 25 mg PO TID 07/01/18 12/22/18 History mometasone [Nasonex] 2 spray INTRANASAL DAILY 07/01/18 12/22/18 History multivitamin 1 tab PO DAILY 07/01/18 12/22/18 History nitroglycerin [Nitrostat] 0.4 mg SUBLINGUAL DIRECTED PRN 07/01/18 12/22/18 History simvastatin [Zocor] 40 mg PO HS 07/01/18 12/22/18 History ergocalciferol (vitamin D2) 50,000 units PO WK 12/22/18 12/22/18 History [Vitamin D2] Past Med/Surg History Medical History BPH (benign prostatic hyperplasia) Bronchiectasis CAD (coronary artery disease) s/p myocardial infarction. No stent in place. 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 Secondary to perforated diverticuli Diabetes Diverticulosis History of herpes zoster Hyperlipidemia Hypertension Interstitial lung disease Orthostatic hypotension Paroxysmal atrial fibrillation Small bowel obstruction Family History Other Diabetes Hypertension Social History Preferred Language: [place] Communication Ability: Effective Rack Cleaner Required: No Beliefs That Will Affect Care: None marital status: Current Living Situation: Spouse current occupational status: retired Feels Safe at Home: Yes Safety Concerns: Feels Safe At This Time Smoking Status: Former smoker Hx Alcohol Use: No Hx Substance Use: No Review of Systems Constitutional: + fever, + chills, + fatigue, + weakness and + anorexia Ear, Nose, Mouth, Throat: + sore throat and + hoarseness Respiratory: + cough, + dyspnea and + sputum production; no hemoptysis Cardiovascular: no chest pain, no palpitations, no syncope, no edema and no calf pain Gastrointestinal: + nausea and + vomiting; no abdominal pain and no change in bowel habits Genitourinary (Male): + urinary hesitancy, + urinary incontinence (With coughing) and + post-void dribbling Integumentary: no rash Physical Exam Vital Signs (Past 24 Hours): Last Vital Signs Temp 37 C 12/22/18 19:08 Pulse 95 H 12/22/18 19:08 Resp 20 12/22/18 19:08 BP 112/57 L 12/22/18 19:08 Pulse Ox 95 12/22/18 19:08 Constitutional: well developed, well nourished, average body habitus, + frail appearing and cooperative Looks unwell and dehydrated Eyes: PERRL, conjunctivae normal, anicteric sclerae ENMT: external ear and nose normal, oropharynx normal Hoarse voice Respiratory: normal respiratory effort Auscultation: + diminished lung sounds and + rhonchi (Bilaterally) Cardiovascular: Rate/Rhythm: regular rhythm and + tachycardic Vessels: radial pulses present; no JVD Extremities: normal capillary refill; no calf tenderness and no pedal edema Gastrointestinal (Abdomen): Percussion/Palpation: abdomen soft; abdomen nontender, no guarding and abdomen not rigid Colostomy bag over left side of abdomen Skin: no rashes, warm and dry Neurologic: Motor/Sensory: + sensory deficit (b/l lower extremities) Psychiatric: A+Ox3, euthymic affect Results & Data Laboratory Results Laboratory Results - last 24 hr 12/22/18 12/22/18 12/22/18 17:28 17:28 17:28 WBC 10.97 H RBC 4.90 Hgb 15.7 POC Hgb Hct 45.0 POC Hct MCV 91.8 MCH 32.0 MCHC 34.9 RDW Std Deviation 42.4 RDW Coeff of Jose Luis 12.6 Plt Count 99 L MPV 9.5 Immature Gran % (Auto) 0.4 Neut % (Auto) 81.8 Lymph % (Auto) 8.0 Weld % (Auto) 9.0 Eos % (Auto) 0.5 Baso % (Auto) 0.3 Immature Gran # (Auto) 0.04 H Neut # (Auto) 8.98 H Lymph # (Auto) 0.88 L Weld # (Auto) 0.99 H Eos # (Auto) 0.05 Baso # (Auto) 0.03 Platelet Estimate Decreased PT INR APTT PTT Ratio POC Sodium Sodium 131 L POC Potassium Potassium 4.3 POC Chloride Chloride 98 Carbon Dioxide 21 POC Total CO2 Anion Gap 12.0 H POC Anion Gap POC BUN BUN 16 Creatinine 1.05 POC Creatinine Est Cr Clr Drug Dosing 38.3 Est GFR ( Amer) 73.6 Est GFR (Non-Af Amer) 63.5 BUN/Creatinine Ratio 15.1 Glucose 236 H POC Glucose POC Glucose (other) POC Lactic Acid Yair Calcium 9.3 POC Ioniz Calcium Angel Total Bilirubin 0.9 AST 33 ALT 46 Alkaline Phosphatase 104 Total Creatine Kinase 63 CK-MB (CK-2) 1.0 CK/CKMB % Calc 1.6 Troponin I < 0.015 Total Protein 6.9 Albumin 3.1 L Globulin 3.8 Albumin/Globulin Ratio 0.8 L Procalcitonin 0.07 Influenza Type A (PCR) Influenza Type B (PCR) 12/22/18 12/22/18 12/22/18 17:28 17:30 17:34 WBC RBC Hgb POC Hgb Hct POC Hct MCV MCH MCHC RDW Std Deviation RDW Coeff of Jose Luis Plt Count MPV Immature Gran % (Auto) Neut % (Auto) Lymph % (Auto) Weld % (Auto) Eos % (Auto) Baso % (Auto) Immature Gran # (Auto) Neut # (Auto) Lymph # (Auto) Weld # (Auto) Eos # (Auto) Baso # (Auto) Platelet Estimate PT 10.9 INR 1.1 APTT 26.8 PTT Ratio 1.0 POC Sodium Sodium POC Potassium Potassium POC Chloride Chloride Carbon Dioxide POC Total CO2 Anion Gap POC Anion Gap POC BUN BUN Creatinine POC Creatinine Est Cr Clr Drug Dosing Est GFR ( Amer) Est GFR (Non-Af Amer) BUN/Creatinine Ratio Glucose POC Glucose POC Glucose (other) POC Lactic Acid Yair 3.49 H Calcium POC Ioniz Calcium Angel Total Bilirubin AST ALT Alkaline Phosphatase Total Creatine Kinase CK-MB (CK-2) CK/CKMB % Calc Troponin I Total Protein Albumin Globulin Albumin/Globulin Ratio Procalcitonin Influenza Type A (PCR) Neg for Influ A Influenza Type B (PCR) Neg for Influ B 12/22/18 12/22/18 17:37 20:52 WBC RBC Hgb POC Hgb 15.0 Hct POC Hct 44 MCV MCH MCHC RDW Std Deviation RDW Coeff of Jose Luis Plt Count MPV Immature Gran % (Auto) Neut % (Auto) Lymph % (Auto) Weld % (Auto) Eos % (Auto) Baso % (Auto) Immature Gran # (Auto) Neut # (Auto) Lymph # (Auto) Weld # (Auto) Eos # (Auto) Baso # (Auto) Platelet Estimate PT INR APTT PTT Ratio POC Sodium 133 L Sodium POC Potassium 4.3 Potassium POC Chloride 100 L Chloride Carbon Dioxide POC Total CO2 20 L Anion Gap POC Anion Gap 18.0 POC BUN 20 H BUN Creatinine POC Creatinine 0.8 Est Cr Clr Drug Dosing Est GFR ( Amer) Est GFR (Non-Af Amer) BUN/Creatinine Ratio Glucose POC Glucose 232 H POC Glucose (other) 244 H POC Lactic Acid Yair Calcium POC Ioniz Calcium Angel 1.11 L Total Bilirubin AST ALT Alkaline Phosphatase Total Creatine Kinase CK-MB (CK-2) CK/CKMB % Calc Troponin I Total Protein Albumin Globulin Albumin/Globulin Ratio Procalcitonin Influenza Type A (PCR) Influenza Type B (PCR) Supervising Physician Co-Signing Physician Notes 88 y/o M hx ILD, PAF, CAD - [place] 1979, HTN, HLD, colostomy - colostomy due to perforated diverticulitis, DM II, pancreatitis, BPH, - presents with fever, chills, cough and weakness. Recently treated for URI/ILD excacerbation with a steroid taper and Doxy. Likely with BL PNM. OE AAO - labored breathing - no distress S1,2 irr/faint BL crackles are present at bases NT, ND No CCE P: PNM - ILD - We will treat for HCAP due to Doxy failure and recent admissions. Cont pred taper and scheduled nebs. If there is no improvement in the short- term, his certified composites technician should be contacted. PAF - cont B stacie - not on anticoagulation due to a fall risk DM - SS CAD - no evidence of ACS - cont ASA, imdur, statin, NT as needed Resident Activity Tracking Resident Involvement: Resident Care Provided Care Provided: Adult [facility] Medicine (1) BPH (benign prostatic hyperplasia) Lower urinary tract symptom detail: urinary frequency Lower urinary tract symptom presence: symptoms present Qualified Code(s): N40.1 - Benign prostatic hyperplasia with lower urinary tract symptoms; R35.0 - Frequency of micturition (2) Diabetes Diabetes mellitus complication detail: with polyneuropathy Diabetes mellitus complication status: with neurologic complications Diabetes mellitus residential insulin use: without termite inspector use Diabetes mellitus type: type 2 Qualified Code(s): E11.42 - Type 2 diabetes mellitus with diabetic polyneuropathy (3) CAD (coronary artery disease) Associated angina: without angina Coronary Disease-Associated Artery/Lesion type: [place] artery [place] vs. transplanted heart: [place] heart Qualified Code(s): I25.10 - Atherosclerotic heart disease of [place] coronary artery without angina pectoris (4) Hyperlipidemia Hyperlipidemia type: unspecified Qualified Code(s): E78.5 - Hyperlipidemia, unspecified (5) Hypertension Hypertension type: essential hypertension Qualified Code(s): I10 - Essential (primary) hypertension
[2018-12-22] MEDS ORDERED: GLUCOSAMINE MSM MAGNESIUM VITC PO SCH (21:46)
[2018-12-22] MEDS ORDERED: GLUCOSE 10 TABS/TUBE PO PRN (21:46)
[2018-12-22] MEDS ORDERED: CARBOHYDRATES FOR HYPOGLYCEMIA PO PRN (21:46)
[2018-12-22] MEDS ORDERED: GLUCOSE 40% GEL 15 GM TUBE PO PRN (21:46)
[2018-12-22] MEDS ORDERED: ONDANSETRON INJ 2 MG/ML 2 ML VIAL IV PRN (21:46)
[2018-12-22] MEDS ORDERED: GLUCAGON FOR INJ 1 MG VIAL SQ PRN (21:46)
[2018-12-22] MEDS ORDERED: VANCOMYCIN CONSULT ACTIVE PRN (21:46)
[2018-12-22] MEDS ORDERED: guaiFENesin 600 MG TABCR PO PRN (21:46)
[2018-12-22] MEDS ORDERED: AZITHROMYCIN 500 MG in DEXTROSE 5% 250 ML IV ONE (21:46)
[2018-12-22] MEDS ORDERED: [UNRECOGNIZED DRUG - OTHER] PO SCH (21:46)
[2018-12-22] MEDS ORDERED: DEXTROSE 50% 50 ML SYRINGE IV PRN (21:46)
[2018-12-22] MEDS ORDERED: ACETAMINOPHEN 325 MG TAB PO PRN (21:46)
[2018-12-22] MEDS ORDERED: NITROGLYCERIN SL 0.4 MG/TAB TAB SL PRN (21:46)
[2018-12-22] MEDS ORDERED: VANCOMYCIN HCL 1,250 MG in SODIUM CHLORIDE 0.9% 250 ML IV ONE (22:30)
[2018-12-22] MEDS: LEVALBUTEROL HCL 1.25 MG/3 ML NEB NEB SCH (22:41)
[2018-12-22] MEDS: PIPERACILLIN/TAZOBACTAM 3.375 GM in DEXTROSE 5% 100 ML IV SCH (23:24)
[2018-12-22] MEDS: INSULIN ASPART 100 UNITS/ML 3 ML PEN SC SCH (23:40)
[2018-12-22] MEDS: HEPARIN SOD 5,000 UNIT/0.5 ML VIAL SQ SCH (23:41)
[2018-12-22] MEDS: BUDESONIDE/FORMOTEROL FUMARATE 80/4.5 60 PUFFS/INHALER INH SCH (23:45)
[2018-12-22] MEDS: METOPROLOL TARTRATE 50 MG TAB PO SCH (23:46)
[2018-12-22] MEDS: SIMVASTATIN 40 MG TAB PO SCH (23:49)
[2018-12-22] MEDS: OMEGA-3 (PURIFIED FISH OIL) 1 GM CAP PO SCH (23:49)
[2018-12-22] MEDS: ASCORBIC ACID 500 MG TAB PO SCH (23:50)
[2018-12-23 00:38] LABS: Appearance Urine Clear (Clear); Bacteria Urine Automated Negative (Negative); Bilirubin Urine Negative (Negative); Blood Urine 1+ (Negative); Cast Urine Automated 0 /lpf (0-5); Color Urine Yellow; Epithelial Cell Urine Auto 0-5 /lpf (0-5); Glucose Urine UA 2+ (Negative); Ketones Urine Negative (Negative); Leukocyte Esterase Urine Negative (Negative); Nitrite Urine Negative (Negative); Protein Urine Negative (Negative); Specific Gravity Urine 1.036 (1.000-1.030); Urobilinogen Urine Negative (Negative); WBC Urine Automated 0 /hpf (0-5); pH Urine 6.5 (4.5-7.5)
[2018-12-23] MEDS: LACTATED RINGER'S 1,000 ML IV SCH ×2 (01:31→08:26)
[2018-12-23] MEDS: LEVALBUTEROL HCL 1.25 MG/3 ML NEB NEB SCH ×4 (02:19→19:54)
[2018-12-23 06:09] LABS: Hematocrit (blood only) 44.4 % (42-52); Hemoglobin 15.5 g/dL (14.0-18.0); Immature Granulocytes # (auto) 0.02 K/uL (0.00-0.02); Immature Granulocytes % (auto) 0.2 %; Lymphocytes # (auto) 0.59 K/uL (1.2-3.4); Lymphocytes % (auto) 6.4 %; Mean Corpuscular Hgb Conc 34.9 g/dL (32-36); Mean Corpuscular Volume 92.1 fL (80-100); Mean Platelet Volume 9.8 fL (7.4-10.4); Monocytes # (auto) 0.12 K/uL (0.11-0.59); Monocytes % (auto) 1.3 %; Neutrophils % (auto) 92.1 %; Platelet Count 107 K/uL (130-400); RDW Coefficient of Variation 12.8 % (11.5-14.5); RDW Standard Deviation 42.8 fL (36.4-46.3); Red Blood Count 4.82 M/uL (4.7-6.1); White Blood Count 9.23 K/uL (4.8-10.8)
[2018-12-23 06:38] LABS: BUN Creatinine Ratio 16.8 (10-20); Calcium 9.2 mg/dl (8.5-10.1); Creatinine Clr Calc Pharmacy 30.7 ml/min; Est GFR (African American) 56.3; Est GFR (Non-African American) 48.6
[2018-12-23 06:48] LABS: Beta-Hydroxybutyrate 5.37 mg/dl (0.2-2.81)
[2018-12-23] MEDS: PIPERACILLIN/TAZOBACTAM 3.375 GM in DEXTROSE 5% 100 ML IV SCH ×2 (08:26→16:15)
[2018-12-23] MEDS: LACTOBACILLUS ACIDOPHILUS (FLORANEX) TAB PO SCH ×3 (08:27→17:11)
[2018-12-23] MEDS: ASPIRIN 81 MG ECTAB PO SCH (08:28)
[2018-12-23] MEDS: predniSONE 20 MG TAB PO SCH (08:29)
[2018-12-23] MEDS: BUDESONIDE/FORMOTEROL FUMARATE 80/4.5 60 PUFFS/INHALER INH SCH ×2 (08:29→20:38)
[2018-12-23] MEDS: OMEGA-3 (PURIFIED FISH OIL) 1 GM CAP PO SCH ×3 (08:29→20:38)
[2018-12-23] MEDS: CHOLECALCIFEROL 1,000 UNITS TAB PO SCH (08:29)
[2018-12-23] MEDS: ASCORBIC ACID 500 MG TAB PO SCH ×2 (08:30→14:01)
[2018-12-23] MEDS: MAGNESIUM OXIDE 400 MG TAB PO SCH (08:30)
[2018-12-23] MEDS: CALCIUM 600MG + VIT D 400 IU TAB PO SCH (08:31)
[2018-12-23] MEDS: MULTIVITAMIN TAB PO SCH (08:31)
[2018-12-23] MEDS: FOLIC ACID 400 MCG TAB PO SCH (08:32)
[2018-12-23] MEDS: METOPROLOL TARTRATE 50 MG TAB PO SCH ×3 (08:33→20:39)
[2018-12-23] MEDS: HEPARIN SOD 5,000 UNIT/0.5 ML VIAL SQ SCH ×2 (08:36→20:41)
[2018-12-23] MEDS: ISOSORBIDE MONO EXTENDED REL 60 MG TABCR PO SCH (08:37)
[2018-12-23] MEDS: INSULIN ASPART 100 UNITS/ML 3 ML PEN SC SCH ×4 (08:39→20:43)
[2018-12-23] MEDS ORDERED: ERGOCALCIFEROL 50,000 UNITS CAP PO SCH (09:00)
[2018-12-23] MEDS ORDERED: PHARMACY GLYCEMIC MGMT CONSULT PRN (09:25)
[2018-12-23 11:38] LABS: Estimated Average Glucose 192 mg/dl; Hemoglobin A1C 8.3 % (4.5-5.6)
[2018-12-23] MEDS ORDERED: SODIUM CHLORIDE 0.9% 1000ML 1,000 ML IV ONE (11:56)
[2018-12-23] MEDS ORDERED: LANTUS PER UNIT CHARGE SQ ONE ×2 (12:45→21:00)
--- NOTE | 2018-12-23 13:26 | Family Medicine Progress Note ---
Date of Service December 23, 2018 Assessment & Plan (1) Pneumonia: 88-year-old male was admitted on 22 December 2018 for home fever, chills, cough, and weakness. Sepsis, suspected pneumonia: By report, was recently on doxycycline and a steroid taper for worsening productive cough. Just prior to admit, patient complained of fever / chills, nausea, dry heaves, and weakness. Afebrile here, minimal leukocytosis to 11. Lactate 3.0. Nasal MRSA and influenza screening negative. CT of the chest suggestive of mild pulmonary edema, trace left pleural effusion, mucous plugging most prominently in the right lower lobe, and interstitial lung disease. 03Mar BCx sent. 04Mar sputum culture sent. - Initial ED treatment consisted of normal saline bolus, empiric Zosyn + Levaquin + Vancomycin, single dose of methylprednisolone, Zofran, levalbuterol nebulizer, and Tylenol. - Will stop vancomycin as nasal MRSA is negative. - Kept on empiric Zosyn and azithromycin. Started on probiotics as well. Started on prednisone 40 mg daily. - Will trend lactate. Consider pulmonary consult depending on how he responds. Interstitial lung disease: History of asbestosis with progressive symptoms worsening since 2006. Follows with Suzan Black and Dr. Walsh. Continue Symbicort and Mucinex. Is not on oxygen at home (though patient says since some providers have recommended this). - Xopenex nebs every 6 hours scheduled. Pulmonary toilet ordered. - Goal to get off of supplemental oxygen. DM type II: At home is on glipizide. Hyperglycemic here. 04Mar HbA1c is 8.3. - Ordered pharmacy glycemic consult. - May benefit from going home on metformin (since he does not appear to be on this regularly). Hyponatremia: Initial Na 131, receiving IVF. Monitoring. Hematuria: As noted on screening UA on admit. Does have a history of kidney stones but denies any obvious flank or colicky pain. Also denies any dysuria or urinary complaints. Can have this followed up on as an outpatient. Ongoing medical history: - Paroxysmal A. fib: Apparently is not on anticoagulants due to fall risk. Continue digoxin and metoprolol. Follows with Dr. Espinoza. 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 - Hypertension, CAD status post [facility] in 1979, no stents: On aspirin, metoprolol, and Imdur. - Hypercholesterolemia: Continue home simvastatin. - BPH: Follows with Dr. Pena. --- Patient can take his home dutasteride 0.5 mg PO q day dose. --- Held doxazosin given relative initial hypotension. Will restart as BP continues to improve. - Pancreatitis: Hospitalization for the same in Jun 2018. - Diverticulitis with bowel perforation s/p colostomy. Code status: Full code. Diet: DM 2, heart healthy. DVT prophy: Heparin 5000 units every 12 hours. PT/OT: Ordered. Disbo: Admitted to [facility] with telemetry. (2) Sepsis: (3) ILD (interstitial lung disease): (4) Diabetes: (5) Hyponatremia: (6) Hematuria: (7) Paroxysmal atrial fibrillation: (8) Hypertension: (9) CAD (coronary artery disease): (10) Hyperlipidemia: (11) BPH (benign prostatic hyperplasia): (12) Pancreatitis: (13) Diverticular disease: Supervising Physician Co-Signing Physician Notes Patient seen and examined with the resident. Agree with history, physical exam, assessment and plan with the following updates/corrections: 88yo M w/ hx of ILD, DM, HTN, afib who presents with cough, shortness of breath, and sputum production. Today, he is dramatically improved. Sputum production has dramatically improved. Shortness of breath also improved. 1) SOB - Unclear etiology as patient had dramatic improvement within 12-24 hours of antibiotic, making pneumonia less likely. Possibly mucus plugging that he spontaneously has cleared or that cleared with DuoNebs. - Continue DuoNebs, steroids, and treatments - Consider pulm consult for mucus plugging - Stop vancomycing for negative MRSA; otherwise continue antibiotics. 2) Lactic acidosis - POC lactate was 3.45 on admission, then up to 8.4 the morning of 12/23. Does not correlate with physical exam or patient's clinical status as he is sitting comfortably in bed stating he is dramatically improved. - Given IV fluid bolus - Repeat in the morning - Trend clincal status 3) DM. - A1c was 8.4%. - Hold home oral med - Glycemic consult Subjective Found patient resting very comfortably in bed this morning. He said that he felt "1000% better" compared to yesterday. He said that his breathing felt improved but not quite at baseline. He says he has some chronic pain but denies any acute pain to include chest or abdomen. He noted no other particular acute concerns. When asked about some mild hematuria on his labs, he says he has a history of BPH and a weak sphincter. He says he has had evaluations for kidney stones before, stating that they have been present but never really bothered him. Physical Exam Vital Signs (Past 24 Hours): Last Vital Signs Temp 36.5 C 12/23/18 11:24 Pulse 81 12/23/18 11:24 Resp 18 12/23/18 11:24 BP 138/78 12/23/18 11:24 Pulse Ox 94 12/23/18 11:24 Physical Exam: General Appearance: Awake, alert & oriented, comfortable in general, NAD. CV: +S1S2 RRR, no murmur. Pulm: Diminished lung sounds with mild bilateral rhonchi. He has a congested cough but he speaks easily in full sentences. Abdomen: +BS, soft, non-tender, non-distended. Colostomy bag on left. Extremities: No pedal edema or calf tenderness. Moving all extremities naturally and easily. Neuro: No gross neuro deficits. Results & Data Laboratory Results Laboratory Results WBC 9.23 K/uL (4.8-10.8) 12/23/18 05:44 RBC 4.82 M/uL (4.7-6.1) 12/23/18 05:44 Hgb 15.5 g/dL (14.0-18.0) 12/23/18 05:44 POC Hgb 15.0 g/dl (14.0-18.0) 12/22/18 17:37 Hct 44.4 % (42-52) 12/23/18 05:44 POC Hct 44 % (42-52) 12/22/18 17:37 MCV 92.1 fL (80-100) 12/23/18 05:44 MCH 32.2 pg (25-34) 12/23/18 05:44 MCHC 34.9 g/dL (32-36) 12/23/18 05:44 RDW Std Deviation 42.8 fL (36.4-46.3) 12/23/18 05:44 RDW Coeff of Jose Luis 12.8 % (11.5-14.5) 12/23/18 05:44 Plt Count 107 K/uL (130-400) L 12/23/18 05:44 MPV 9.8 fL (7.4-10.4) 12/23/18 05:44 Immature Gran % (Auto) 0.2 % 12/23/18 05:44 Neut % (Auto) 92.1 % 12/23/18 05:44 Lymph % (Auto) 6.4 % 12/23/18 05:44 [place] % (Auto) 1.3 % 12/23/18 05:44 Eos % (Auto) 0.0 % 12/23/18 05:44 Baso % (Auto) 0.0 % 12/23/18 05:44 Immature Gran # (Auto) 0.02 K/uL (0.00-0.02) 12/23/18 05:44 Neut # (Auto) 8.50 K/uL (1.4-6.5) H 12/23/18 05:44 Lymph # (Auto) 0.59 K/uL (1.2-3.4) L 12/23/18 05:44 [place] # (Auto) 0.12 K/uL (0.11-0.59) 12/23/18 05:44 Eos # (Auto) 0.00 K/uL (0-0.5) 12/23/18 05:44 Baso # (Auto) 0.00 K/uL (0-0.2) 12/23/18 05:44 Platelet Estimate Decreased (Normal) 12/22/18 17:28 PT 10.9 Seconds (9.0-12.0) 12/22/18 17:28 INR 1.1 (0.9-1.1) 12/22/18 17:28 APTT 26.8 Seconds (21.0-31.0) 12/22/18 17:28 PTT Ratio 1.0 12/22/18 17:28 POC Sodium 133 mEq/L (135-144) L 12/22/18 17:37 Sodium 132 mmol/L (136-145) L 12/23/18 05:44 POC Potassium 4.3 mEq/L (3.3-5.0) 12/22/18 17:37 Potassium 4.0 mmol/L (3.5-5.1) 12/23/18 05:44 POC Chloride 100 mEq/L (101-112) L 12/22/18 17:37 Chloride 98 mmol/L (98-107) 12/23/18 05:44 Carbon Dioxide 21 mmol/L (21-32) 12/23/18 05:44 POC Total CO2 20 mEq/l (24-31) L 12/22/18 17:37 Anion Gap 13.0 (3-11) H 12/23/18 05:44 POC Anion Gap 18.0 mmol/L (16-25) 12/22/18 17:37 POC BUN 20 mg/dl (7-18) H 12/22/18 17:37 BUN 22 mg/dl (7-18) H 12/23/18 05:44 Creatinine 1.31 mg/dl (0.6-1.4) 12/23/18 05:44 POC Creatinine 0.8 mg/dl (0.6-1.3) 12/22/18 17:37 Est Cr Clr Drug Dosing 30.7 ml/min 12/23/18 05:44 Est GFR ( Amer) 56.3 12/23/18 05:44 Est GFR (Non-Af Amer) 48.6 12/23/18 05:44 BUN/Creatinine Ratio 16.8 (10-20) 12/23/18 05:44 Glucose 336 mg/dl (70-99) H 12/23/18 05:44 POC Glucose 353 (70-99) H* 12/23/18 11:40 POC Glucose (other) 244 mg/dl (70-99) H 12/22/18 17:37 Estimat Average Glucose 192 mg/dl 12/23/18 10:09 Hemoglobin A1c 8.3 % (4.5-5.6) H 12/23/18 10:09 POC Lactic Acid Yair 3.49 mmol/L (0.90-1.70) H 12/22/18 17:34 Lactate 8.4 mmol/L (0.4-2.0) H* 12/23/18 11:05 Calcium 9.2 mg/dl (8.5-10.1) 12/23/18 05:44 POC Ioniz Calcium Angel 1.11 mmol/l (1.12-1.32) L 12/22/18 17:37 Total Bilirubin 0.9 mg/dl (0.2-1) 12/22/18 17:28 AST 33 U/L (15-37) 12/22/18 17:28 ALT 46 U/L (12-78) 12/22/18 17:28 Alkaline Phosphatase 104 U/L (45-117) 12/22/18 17:28 Total Creatine Kinase 63 U/L (39-308) 12/22/18 17:28 CK-MB (CK-2) 1.0 ng/ml (0.5-3.6) 12/22/18 17:28 CK/CKMB % Calc 1.6 (0-3.0) 12/22/18 17:28 Troponin I < 0.015 ng/ml (0-0.045) 12/22/18 17:28 Total Protein 6.9 gm/dl (6.4-8.2) 12/22/18 17:28 Albumin 3.1 gm/dl (3.4-5.0) L 12/22/18 17:28 Globulin 3.8 gm/dl (2.5-4.0) 12/22/18 17:28 Albumin/Globulin Ratio 0.8 (0.9-2) L 12/22/18 17:28 Beta-Hydroxybutyric Acd 5.37 mg/dl (0.2-2.81) H 12/23/18 05:44 Procalcitonin 0.07 ng/ml (0-0.5) 12/22/18 17:28 Urine Color Yellow 12/23/18 00:10 Urine Appearance Clear (Clear) 12/23/18 00:10 Urine pH 6.5 (4.5-7.5) 12/23/18 00:10 Ur Specific [place] 1.036 (1.000-1.030) H 12/23/18 00:10 Urine Protein Negative (Negative) 12/23/18 00:10 Urine Glucose (UA) 2+ (Negative) H 12/23/18 00:10 Urine Ketones Negative (Negative) 12/23/18 00:10 Urine Blood 1+ (Negative) H 12/23/18 00:10 Urine Nitrite Negative (Negative) 12/23/18 00:10 Urine Bilirubin Negative (Negative) 12/23/18 00:10 Urine Urobilinogen Negative (Negative) 12/23/18 00:10 Ur Leukocyte Esterase Negative (Negative) 12/23/18 00:10 Urine WBC (Auto) 0 /hpf (0-5) 12/23/18 00:10 Urine RBC (Auto) 5-10 /hpf (0-4) H 12/23/18 00:10 U Hyaline Cast (Auto) 0 /lpf (0-5) 12/23/18 00:10 U Epithel Cells (Auto) 0-5 /lpf (0-5) 12/23/18 00:10 Urine Bacteria (Auto) Negative (Negative) 12/23/18 00:10 Nasal Screen MRSA (PCR) Negative (Negative) 12/23/18 00:10 Influenza Type A (PCR) Neg for Influ A (Neg) 12/22/18 17:30 Influenza Type B (PCR) Neg for Influ B (Neg) 12/22/18 17:30 Medications Administered Current Inpatient Medications Acetaminophen (Tylenol) 650 mg PO Q4H PRN PRN Reason: pain/fever Stop: 01/21/19 21:45 Ascorbic Acid (Vitamin C) 500 mg PO TID [facility] Stop: 01/21/19 21:45 Last Admin: 12/23/18 08:30 Dose: 500 mg Documented by: Aspirin (Ecotrin Ectab) 81 mg PO DAILY [facility] Stop: 01/22/19 08:59 Last Admin: 12/23/18 08:28 Dose: 81 mg Documented by: Budesonide/Formoterol Fumarate (Symbicort 80mcg/4.5mcg) 2 puffs INH BID [facility] Stop: 01/21/19 21:45 Last Admin: 12/23/18 08:29 Dose: 2 puffs Documented by: Dextrose (Dextrose 50%) 25 - 50 ml IV UD PRN; Protocol PRN Reason: Hypoglycemia Protocol Stop: 01/21/19 21:45 Digoxin (Lanoxin) 0.125 mg PO DAILY@1600 [facility] Stop: 01/22/19 15:59 Ergocalciferol (Vitamin D2) 50,000 units PO Mo@0900 [facility] Stop: 01/22/19 08:59 Last Admin: 12/23/18 08:27 Dose: 50,000 units Documented by: Fish Oil ([place]-3 (Purified Fish Oil)) 1 gm PO TID [facility] Stop: 01/21/19 21:45 Last Admin: 12/23/18 08:29 Dose: 1 gm Documented by: Folic Acid (Folvite) 400 mcg PO DAILY [facility] Stop: 01/22/19 08:59 Last Admin: 12/23/18 08:32 Dose: 400 mcg Documented by: Glucagon (Glucagen) 1 mg SQ UD PRN; Protocol PRN Reason: Hypoglycemia Protocol Stop: 01/21/19 21:45 Glucose (Glucose 40%) 15 - 30 gm PO UD PRN; Protocol PRN Reason: Hypoglycemia Protocol Stop: 01/21/19 21:45 Glucose (Dex4 Glucose) 4 - 8 tabs PO UD PRN; Protocol PRN Reason: Hypoglycemia Protocol Stop: 01/21/19 21:45 Guaifenesin (Mucinex) 600 mg PO Q12H PRN PRN Reason: Congestion Stop: 01/21/19 21:45 Heparin Sodium (Porcine) (Heparin Sodium (Porcine)) 5,000 units SQ Q12 [facility] Stop: 01/21/19 21:45 Last Admin: 12/23/18 08:36 Dose: 5,000 units Documented by: Azithromycin 250 mg/ Dextrose 252.5 mls @ 125 mls/hr IV Q24H [facility] Stop: 12/30/18 13:59 Lactated Ringer's (Lr) 1,000 mls @ 100 mls/hr IV .Q10H [facility] Stop: 12/23/18 17:45 Last Admin: 12/23/18 08:26 Dose: 100 mls/hr Documented by: Piperacillin Sod/Tazobactam (Sod 3.375 gm/ Dextrose) 115 mls @ 28.75 mls/hr IV Q8H [facility]; Protocol Stop: 12/30/18 00:00 Last Infusion: 12/23/18 12:06 Dose: Infused Documented by: Vancomycin HCl 1,000 mg/ (Sodium Chloride) 270 mls @ 125 mls/hr IV Q24H [facility] Stop: 12/29/18 19:59 Insulin Aspart (Novolog Flexpen) 0 units SC ACHS [facility] Stop: 01/21/19 21:45 Last Admin: 12/23/18 12:51 Dose: 12 units Documented by: Insulin Aspart (Novolog Flexpen) 0 units SC TODAY@0000,0400 [facility] Stop: 12/24/18 04:01 Ioversol (Optiray 320 125ml) 116 ml IV ONCE PRN PRN Reason: Interaction Checking Stop: 12/26/18 18:57 Last Admin: 12/22/18 18:58 Dose: 116 ml Documented by: Isosorbide Mononitrate (Imdur Extended Rel) 60 mg PO DAILY [facility] Stop: 01/22/19 08:59 Last Admin: 12/23/18 08:37 Dose: Not Given Documented by: Lactobacillus Acidophilus (Floranex) 4 tab PO TIDM [facility] Stop: 01/22/19 07:59 Last Admin: 12/23/18 12:07 Dose: 4 tab Documented by: Levalbuterol HCl (Xopenex 1.25mg/3ml Neb) 1.25 mg NEB Q6R [facility] Stop: 01/21/19 21:45 Last Admin: 12/23/18 07:07 Dose: 1.25 mg Documented by: Magnesium Oxide (Mag-Ox) 400 mg PO DAILY [facility] Stop: 01/22/19 08:59 Last Admin: 12/23/18 08:30 Dose: 400 mg Documented by: Metoprolol Tartrate (Lopressor) 25 mg PO TID [facility] Stop: 01/21/19 21:45 Last Admin: 12/23/18 08:33 Dose: 25 mg Documented by: Miscellaneous (Carbohydrates For Hypoglycemia) 15 - 30 gm PO UD PRN PRN Reason: Hypoglycemia Treatment Stop: 01/21/19 21:45 Miscellaneous Information (Consult) 1 ea N/A UD PRN PRN Reason: Consult Stop: 01/21/19 18:20 Miscellaneous Information (Consult) 1 ea N/A UD PRN PRN Reason: Consult Stop: 01/21/19 21:45 Miscellaneous Information (Consult Glycemic Management Pharmacy) 1 ea N/A UD PRN PRN Reason: Consult Stop: 01/22/19 09:24 Multivitamins (Multivitamin Tab) 1 tab PO DAILY [facility] Stop: 01/22/19 08:59 Last Admin: 12/23/18 08:31 Dose: 1 tab Documented by: Multivitamins/Minerals (Caltrate Plus) 1 tab PO DAILY [facility] Stop: 01/22/19 08:59 Last Admin: 12/23/18 08:31 Dose: 1 tab Documented by: Nitroglycerin (Nitrostat) 0.4 mg SL PRN PRN PRN Reason: Chest Pain Stop: 01/21/19 21:45 Non-Formulary Medication (Dutasteride) 0.5 mg PO DAILY [facility] Stop: 01/23/19 08:59 Ondansetron HCl (Zofran) 4 mg IV Q6H PRN PRN Reason: Nausea Stop: 01/21/19 21:45 Prednisone (Prednisone) 40 mg PO DAILY [facility] Stop: 01/22/19 08:59 Last Admin: 12/23/18 08:29 Dose: 40 mg Documented by: Simvastatin (Zocor) 40 mg PO HS [facility] Stop: 01/21/19 21:45 Last Admin: 12/22/18 23:49 Dose: 40 mg Documented by: Vitamin D (Vitamin D3) 1,000 units PO DAILY [facility] Stop: 01/22/19 08:59 Last Admin: 12/23/18 08:29 Dose: 1,000 units Documented by: Resident Activity Tracking Resident Involvement: Resident Care Provided Care Provided: [facility] (1) BPH (benign prostatic hyperplasia) Lower urinary tract symptom detail: urinary frequency Lower urinary tract symptom presence: symptoms present Qualified Code(s): N40.1 - Benign prostatic hyperplasia with lower urinary tract symptoms; R35.0 - Frequency of micturition (2) Hematuria Hematuria type: gross Qualified Code(s): R31.0 - Gross hematuria (3) Diabetes Diabetes mellitus complication detail: with polyneuropathy Diabetes mellitus complication status: with neurologic complications Diabetes mellitus intermediate frame tender insulin use: without intermediate frame tender use Diabetes mellitus type: type 2 Qualified Code(s): E11.42 - Type 2 diabetes mellitus with diabetic polyneuropathy (4) CAD (coronary artery disease) Associated angina: without angina Coronary Disease-Associated Artery/Lesion type: [place] artery [place] vs. transplanted heart: [place] heart Qualified Code(s): I25.10 - Atherosclerotic heart disease of [place] coronary artery without angina pectoris (5) Hyperlipidemia Hyperlipidemia type: unspecified Qualified Code(s): E78.5 - Hyperlipidemia, unspecified (6) Pancreatitis Acute pancreatitis complication: no infection or necrosis Chronicity: acute Pancreatitis type: unspecified pancreatitis type Qualified Code(s): K85.90 - Acute pancreatitis without necrosis or infection, unspecified (7) Hypertension Hypertension type: essential hypertension Qualified Code(s): I10 - Essential (primary) hypertension
[2018-12-23] MEDS: AZITHROMYCIN 250 MG in DEXTROSE 5% 250 ML IV SCH (14:01)
--- NOTE | 2018-12-23 15:34 | Pharmacy Report ---
Glycemic Control Consultation - Date of Service December 23, 2018 - Scope Scope: Glycemic Pharmacist consulted by Dr Knight on 12/23/18 for glycemic control and to write orders per [facility] inpatient glycemic control protocol - Objective Weight: 56.8 kg Accuchecks BSG (last 24hrs): 12/22/18 12/22/18 12/22/18 17:28 17:37 20:52 Glucose 236 H POC Glucose 232 H POC Glucose (other) 244 H 12/22/18 12/23/18 12/23/18 22:02 05:44 07:33 Glucose 336 H POC Glucose 233 H 331 H POC Glucose (other) 12/23/18 12/23/18 12/23/18 11:39 11:40 14:37 Glucose POC Glucose 368 H* 353 H* 370 H* POC Glucose (other) Laboratory Data (last 24hrs): 12/22/18 12/23/18 17:28 05:44 Potassium 4.3 4.0 Carbon Dioxide 21 21 Anion Gap 12.0 H 13.0 H Creatinine 1.05 1.31 Est Cr Clr Drug Dosing 38.3 30.7 Beta-Hydroxybutyric Acd 5.37 H HbA1c: Hemoglobin A1c 8.3 % (4.5-5.6) H 12/23/18 10:09 - Recent Pertinent Medications Outpatient Anti-diabetic Regimen: * Glipizide 10mg daily * A1c = 8.3 % 12/23/18 - Assessment & Plan Assessment & Plan: ASSESSMENT: * Mr. Freed is an 88yo M unknown to the pharmacy glycemic service. He met sepsis criteria and is now being treated with vanco/zosyn/zithromax. PMHx consistent with ILD, DM-II, A fib, BPH, among others. A1C of 8.3% indicative of adequate outpt glycemic management. His BSGs over the preceding 24hrs have all been hyperglycemic, likely steroid induced. * BSGs at lunch today, 363mg/dL. Will start metabolic insulin and tighten correctional insulin PLAN FOR INPATIENT GLYCEMIC CONTROL: * Holding outpatient oral diabetes medications * Basal insulin * Lantus 14 units this afternoon. Will consider adding a dose tonight as well. * Bolus insulin * NovoLog per scale ACHS or Q6hrs while NPO * Goal Range: Low 110 mg/dL - High 140 mg/dL * Correction Factor: 30 mg/dL/unit * Nutritional / Prandial insulin per carb ratio of 1 unit per 10 grams CHO consumed * adding 00,04 checks * Please note that the plan above was derived based on current level of insulin resistance and hospital stress. These recommendations are appropriate for inpatient admission only. Plan of care upon discharge will need to be reassessed to avoid potential outpatient hypo/hyperglycemia.
[2018-12-23] MEDS: DUTASTERIDE: ORDER AWAITING ACTION SCH (16:14)
[2018-12-23] MEDS: DIGOXIN 0.125 MG TAB PO SCH (17:11)
[2018-12-23] MEDS ORDERED: VANCOMYCIN HCL 1,000 MG in SODIUM CHLORIDE 0.9% 250 ML IV SCH (20:00)
[2018-12-23] MEDS: SIMVASTATIN 40 MG TAB PO SCH (20:37)
[2018-12-24] MEDS: DUTASTERIDE: ORDER AWAITING ACTION SCH ×2 (00:12→07:28)
[2018-12-24] MEDS: PIPERACILLIN/TAZOBACTAM 3.375 GM in DEXTROSE 5% 100 ML IV SCH ×4 (00:19→23:57)
[2018-12-24] MEDS: INSULIN ASPART 100 UNITS/ML 3 ML PEN SC SCH ×6 (00:26→20:32)
[2018-12-24] MEDS: LEVALBUTEROL HCL 1.25 MG/3 ML NEB NEB SCH ×4 (01:58→19:46)
[2018-12-24 07:17] LABS: Hematocrit (blood only) 42.7 % (42-52); Hemoglobin 15.3 g/dL (14.0-18.0); Immature Granulocytes # (auto) 0.05 K/uL (0.00-0.02); Immature Granulocytes % (auto) 0.3 %; Lymphocytes # (auto) 1.17 K/uL (1.2-3.4); Lymphocytes % (auto) 7.1 %; Mean Corpuscular Hgb Conc 35.8 g/dL (32-36); Mean Corpuscular Volume 90.9 fL (80-100); Mean Platelet Volume 9.4 fL (7.4-10.4); Monocytes # (auto) 0.84 K/uL (0.11-0.59); Monocytes % (auto) 5.1 %; Neutrophils # (auto) 14.48 K/uL (1.4-6.5); Neutrophils % (auto) 87.5 %; Platelet Count 102 K/uL (130-400); RDW Coefficient of Variation 12.6 % (11.5-14.5); RDW Standard Deviation 42.4 fL (36.4-46.3); White Blood Count 16.54 K/uL (4.8-10.8)
[2018-12-24 07:48] LABS: BUN Creatinine Ratio 21.6 (10-20); Calcium 9.3 mg/dl (8.5-10.1); Creatinine Clr Calc Pharmacy 31.6 ml/min; Est GFR (African American) 58.5; Est GFR (Non-African American) 50.5; Potassium 3.8 mmol/L (3.5-5.1)
[2018-12-24] MEDS: LACTOBACILLUS ACIDOPHILUS (FLORANEX) TAB PO SCH ×3 (08:07→16:33)
[2018-12-24] MEDS: CHOLECALCIFEROL 1,000 UNITS TAB PO SCH (08:08)
[2018-12-24] MEDS: FOLIC ACID 400 MCG TAB PO SCH (08:08)
[2018-12-24] MEDS: ISOSORBIDE MONO EXTENDED REL 60 MG TABCR PO SCH (08:08)
[2018-12-24] MEDS: CALCIUM 600MG + VIT D 400 IU TAB PO SCH (08:08)
[2018-12-24] MEDS: MULTIVITAMIN TAB PO SCH (08:08)
[2018-12-24] MEDS: MAGNESIUM OXIDE 400 MG TAB PO SCH (08:08)
[2018-12-24] MEDS: predniSONE 20 MG TAB PO SCH (08:08)
[2018-12-24] MEDS: METOPROLOL TARTRATE 50 MG TAB PO SCH ×3 (08:08→20:32)
[2018-12-24] MEDS: HEPARIN SOD 5,000 UNIT/0.5 ML VIAL SQ SCH ×2 (08:08→20:33)
[2018-12-24] MEDS: OMEGA-3 (PURIFIED FISH OIL) 1 GM CAP PO SCH ×3 (08:08→20:32)
[2018-12-24] MEDS: BUDESONIDE/FORMOTEROL FUMARATE 80/4.5 60 PUFFS/INHALER INH SCH ×2 (08:08→20:33)
[2018-12-24] MEDS: ASPIRIN 81 MG ECTAB PO SCH (08:08)
[2018-12-24] MEDS ORDERED: NovoLIN-N (NPH) PER UNIT CHARGE SQ ONE (09:00)
--- NOTE | 2018-12-24 11:33 | Family Medicine Progress Note ---
Date of Service December 24, 2018 Assessment & Plan (1) Pneumonia: 88-year-old male was admitted on 22 December 2018 for home fever, chills, cough, and weakness. Sepsis, suspected pneumonia: By report, was recently on doxycycline and a steroid taper for worsening productive cough. Nasal MRSA and influenza screening negative. CT chest suggestive of mild pulmonary edema, trace left pleural effusion, mucous plugging most prominently in the right lower lobe, and interstitial lung disease. 03Mar BCx NGTD. 04Mar sputum culture thus far notes light normal tabitha present. Lactate max to 8.4, improved to 2.5 with more IVF. Some continued leukocytosis. Stopped empiric vancomycin, kept on empiric Zosyn and azithromycin (as well as probiotics). On prednisone 40 mg daily, scheduled symbicort and xopenex, and pulmonary toilet. - Consider pulmonology consult depending on how he responds. Interstitial lung disease: History of asbestosis with progressive symptoms worsening since 2006. Follows with Suzan Black and Dr. Walsh. See pulm meds above. Is not on oxygen at home (though patient says since some providers have recommended this). Here, has been weaned off supplemental oxygen. DM type II: At home is on glipizide. Hyperglycemic here. 04Mar HbA1c is 8.3. On pharmacy glycemic consult. - May benefit from going home on metformin (since he does not appear to be on this regularly) depending on his renal status. Hyponatremia: Initial Na 131, receiving IVF, resolved. Monitoring. Hematuria: As noted on screening UA on admit. Does have a history of kidney stones but denies any obvious flank or colicky pain. Also denies any dysuria or urinary complaints. Can have this followed up on as an outpatient. Ongoing medical history: - Paroxysmal A. fib: Apparently is not on anticoagulants due to fall risk. Continue digoxin and metoprolol. Follows with Dr. Espinoza. 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 - Hypertension, CAD status post OH in 1979, no stents: On aspirin, metoprolol, and Imdur. - Hypercholesterolemia: Continue home simvastatin. - BPH: Follows with Dr. Pena. --- Patient can take his home dutasteride 0.5 mg PO q day dose. --- Restarted his home doxazosin. - Pancreatitis: Hospitalization for the same in Jun 2018. - Diverticulitis with bowel perforation s/p colostomy. Side note: Patient notes that he has a pending CT scan previously ordered / arranged as an outpatient by Dr. Weldon of hematology. The scan was scheduled for tomorrow () at 8:40 AM. Discussed the same with Dr. Weldon who asked if possible if this could be kept. We will send the patient down to CT tomorrow morning as a convenience to both the patient and Dr. Weldon. Code status: Full code. Diet: DM 2, heart healthy. DVT prophy: Heparin 5000 units every 12 hours. PT/OT: Ordered. PT recommends inpatient rehab. Disbo: Admitted to [facility] with telemetry. Baseline lives at home with his . (2) Sepsis: (3) ILD (interstitial lung disease): (4) Diabetes: (5) Hyponatremia: (6) Hematuria: (7) Paroxysmal atrial fibrillation: (8) Hypertension: (9) CAD (coronary artery disease): (10) Hyperlipidemia: (11) BPH (benign prostatic hyperplasia): (12) Pancreatitis: (13) Diverticular disease: Supervising Physician Co-Signing Physician Notes Patient seen and examined with the resident. Agree with history, physical exam, assessment and plan with the following updates/corrections: 88yo M w/ hx of ILD, DM, HTN, afib who presents with cough, shortness of breath, and sputum production. Today, he is dramatically improved. Sputum production has dramatically improved. Shortness of breath also improved. 1) SOB - Unclear etiology as patient had dramatic improvement within 12-24 hours of antibiotic, making pneumonia less likely. Possibly mucus plugging that he spontaneously has cleared or that cleared with DuoNebs/chest physiotherapy. - Continue DuoNebs, steroids, and chest therapy treatments - Holding off on pulm consult given significant improvement - Follow up sputum culture 2) Lactic acidosis - POC lactate was 3.45 on admission, then up to 8.4 the morning of 12/23. Does not correlate with physical exam or patient's clinical status as he was sitting comfortably in bed stating he is dramatically improved. - Given IV fluid bolus -> Down to 2.5 on 12/24 3) DM - A1c was 8.4%. - Hold home oral med - Glycemic consult Subjective Found patient resting comfortably in bed. He says that the chest vibration vest seems to work quite well and producing sputum. He says his breathing continues to improve but he is not yet quite at his baseline. Otherwise he says he feels well and has no particular complaints. We discussed that physical therapy recommends that he go back to inpatient rehab. He says he has been to [facility] in the past and would not mind returning there. Physical Exam Vital Signs (Past 24 Hours): Last Vital Signs Temp 36.7 C 12/24/18 07:27 Pulse 73 12/24/18 08:00 Resp 18 12/24/18 07:27 BP 144/65 H 12/24/18 07:27 Pulse Ox 98 12/24/18 07:27 Physical Exam: General Appearance: Awake, alert & oriented, comfortable in general, NAD. CV: +S1S2 RRR, no murmur. Pulm: Diminished lung sounds with mild bilateral rhonchi (about the same as yesterday). Abdomen: +BS, soft, non-tender, non-distended. Colostomy bag on left. Extremities: No pedal edema or calf tenderness. Moving all extremities naturally and easily. Neuro: No gross neuro deficits. Results & Data Laboratory Results Laboratory Results WBC 16.54 K/uL (4.8-10.8) H 12/24/18 07:02 RBC 4.70 M/uL (4.7-6.1) 12/24/18 07:02 Hgb 15.3 g/dL (14.0-18.0) 12/24/18 07:02 POC Hgb 15.0 g/dl (14.0-18.0) 12/22/18 17:37 Hct 42.7 % (42-52) 12/24/18 07:02 POC Hct 44 % (42-52) 12/22/18 17:37 MCV 90.9 fL (80-100) 12/24/18 07:02 MCH 32.6 pg (25-34) 12/24/18 07:02 MCHC 35.8 g/dL (32-36) 12/24/18 07:02 RDW Std Deviation 42.4 fL (36.4-46.3) 12/24/18 07:02 RDW Coeff of Jose Luis 12.6 % (11.5-14.5) 12/24/18 07:02 Plt Count 102 K/uL (130-400) L 12/24/18 07:02 MPV 9.4 fL (7.4-10.4) 12/24/18 07:02 Immature Gran % (Auto) 0.3 % 12/24/18 07:02 Neut % (Auto) 87.5 % 12/24/18 07:02 Lymph % (Auto) 7.1 % 12/24/18 07:02 [place] % (Auto) 5.1 % 12/24/18 07:02 Eos % (Auto) 0.0 % 12/24/18 07:02 Baso % (Auto) 0.0 % 12/24/18 07:02 Immature Gran # (Auto) 0.05 K/uL (0.00-0.02) H 12/24/18 07:02 Neut # (Auto) 14.48 K/uL (1.4-6.5) H 12/24/18 07:02 Lymph # (Auto) 1.17 K/uL (1.2-3.4) L 12/24/18 07:02 [place] # (Auto) 0.84 K/uL (0.11-0.59) H 12/24/18 07:02 Eos # (Auto) 0.00 K/uL (0-0.5) 12/24/18 07:02 Baso # (Auto) 0.00 K/uL (0-0.2) 12/24/18 07:02 Platelet Estimate Decreased (Normal) 12/22/18 17:28 PT 10.9 Seconds (9.0-12.0) 12/22/18 17:28 INR 1.1 (0.9-1.1) 12/22/18 17:28 APTT 26.8 Seconds (21.0-31.0) 12/22/18 17:28 PTT Ratio 1.0 12/22/18 17:28 POC Sodium 133 mEq/L (135-144) L 12/22/18 17:37 Sodium 136 mmol/L (136-145) 12/24/18 07:02 POC Potassium 4.3 mEq/L (3.3-5.0) 12/22/18 17:37 Potassium 3.8 mmol/L (3.5-5.1) 12/24/18 07:02 POC Chloride 100 mEq/L (101-112) L 12/22/18 17:37 Chloride 103 mmol/L (98-107) 12/24/18 07:02 Carbon Dioxide 24 mmol/L (21-32) 12/24/18 07:02 POC Total CO2 20 mEq/l (24-31) L 12/22/18 17:37 Anion Gap 9.0 (3-11) 12/24/18 07:02 POC Anion Gap 18.0 mmol/L (16-25) 12/22/18 17:37 POC BUN 20 mg/dl (7-18) H 12/22/18 17:37 BUN 27 mg/dl (7-18) H 12/24/18 07:02 Creatinine 1.27 mg/dl (0.6-1.4) 12/24/18 07:02 POC Creatinine 0.8 mg/dl (0.6-1.3) 12/22/18 17:37 Est Cr Clr Drug Dosing 31.6 ml/min 12/24/18 07:02 Est GFR ( Amer) 58.5 12/24/18 07:02 Est GFR (Non-Af Amer) 50.5 12/24/18 07:02 BUN/Creatinine Ratio 21.6 (10-20) H 12/24/18 07:02 Glucose 229 mg/dl (70-99) H 12/24/18 07:02 POC Glucose 230 (70-99) H 12/24/18 07:42 POC Glucose (other) 244 mg/dl (70-99) H 12/22/18 17:37 Estimat Average Glucose 192 mg/dl 12/23/18 10:09 Hemoglobin A1c 8.3 % (4.5-5.6) H 12/23/18 10:09 POC Lactic Acid Yair 3.49 mmol/L (0.90-1.70) H 12/22/18 17:34 Lactate 2.5 mmol/L (0.4-2.0) H* 12/24/18 07:02 Calcium 9.3 mg/dl (8.5-10.1) 12/24/18 07:02 POC Ioniz Calcium Angel 1.11 mmol/l (1.12-1.32) L 12/22/18 17:37 Total Bilirubin 0.9 mg/dl (0.2-1) 12/22/18 17:28 AST 33 U/L (15-37) 12/22/18 17:28 ALT 46 U/L (12-78) 12/22/18 17:28 Alkaline Phosphatase 104 U/L (45-117) 12/22/18 17:28 Total Creatine Kinase 63 U/L (39-308) 12/22/18 17:28 CK-MB (CK-2) 1.0 ng/ml (0.5-3.6) 12/22/18 17:28 CK/CKMB % Calc 1.6 (0-3.0) 12/22/18 17:28 Troponin I < 0.015 ng/ml (0-0.045) 12/22/18 17:28 Total Protein 6.9 gm/dl (6.4-8.2) 12/22/18 17:28 Albumin 3.1 gm/dl (3.4-5.0) L 12/22/18 17:28 Globulin 3.8 gm/dl (2.5-4.0) 12/22/18 17:28 Albumin/Globulin Ratio 0.8 (0.9-2) L 12/22/18 17:28 Beta-Hydroxybutyric Acd 5.37 mg/dl (0.2-2.81) H 12/23/18 05:44 Procalcitonin 0.07 ng/ml (0-0.5) 12/22/18 17:28 Urine Color Yellow 12/23/18 00:10 Urine Appearance Clear (Clear) 12/23/18 00:10 Urine pH 6.5 (4.5-7.5) 12/23/18 00:10 Ur Specific [place] 1.036 (1.000-1.030) H 12/23/18 00:10 Urine Protein Negative (Negative) 12/23/18 00:10 Urine Glucose (UA) 2+ (Negative) H 12/23/18 00:10 Urine Ketones Negative (Negative) 12/23/18 00:10 Urine Blood 1+ (Negative) H 12/23/18 00:10 Urine Nitrite Negative (Negative) 12/23/18 00:10 Urine Bilirubin Negative (Negative) 12/23/18 00:10 Urine Urobilinogen Negative (Negative) 12/23/18 00:10 Ur Leukocyte Esterase Negative (Negative) 12/23/18 00:10 Urine WBC (Auto) 0 /hpf (0-5) 12/23/18 00:10 Urine RBC (Auto) 5-10 /hpf (0-4) H 12/23/18 00:10 U Hyaline Cast (Auto) 0 /lpf (0-5) 12/23/18 00:10 U Epithel Cells (Auto) 0-5 /lpf (0-5) 12/23/18 00:10 Urine Bacteria (Auto) Negative (Negative) 12/23/18 00:10 Nasal Screen MRSA (PCR) Negative (Negative) 12/23/18 00:10 Influenza Type A (PCR) Neg for Influ A (Neg) 12/22/18 17:30 Influenza Type B (PCR) Neg for Influ B (Neg) 12/22/18 17:30 Medications Administered Current Inpatient Medications Acetaminophen (Tylenol) 650 mg PO Q4H PRN PRN Reason: pain/fever Stop: 01/21/19 21:45 Aspirin (Ecotrin Ectab) 81 mg PO DAILY [facility] Stop: 01/22/19 08:59 Last Admin: 12/24/18 08:08 Dose: 81 mg Documented by: Budesonide/Formoterol Fumarate (Symbicort 80mcg/4.5mcg) 2 puffs INH BID [facility] Stop: 01/21/19 21:45 Last Admin: 12/24/18 08:08 Dose: 2 puffs Documented by: Dextrose (Dextrose 50%) 25 - 50 ml IV UD PRN; Protocol PRN Reason: Hypoglycemia Protocol Stop: 01/21/19 21:45 Digoxin (Lanoxin) 0.125 mg PO DAILY@1600 [facility] Stop: 01/22/19 15:59 Last Admin: 12/23/18 17:11 Dose: 0.125 mg Documented by: Doxazosin Mesylate (Cardura) 2 mg PO DAILY [facility] Stop: 01/23/19 11:29 Ergocalciferol (Vitamin D2) 50,000 units PO Mo@0900 [facility] Stop: 01/22/19 08:59 Last Admin: 12/23/18 08:27 Dose: 50,000 units Documented by: Fish Oil ([place]-3 (Purified Fish Oil)) 1 gm PO TID [facility] Stop: 01/21/19 21:45 Last Admin: 12/24/18 08:08 Dose: 1 gm Documented by: Folic Acid (Folvite) 400 mcg PO DAILY [facility] Stop: 01/22/19 08:59 Last Admin: 12/24/18 08:08 Dose: 400 mcg Documented by: Glucagon (Glucagen) 1 mg SQ UD PRN; Protocol PRN Reason: Hypoglycemia Protocol Stop: 01/21/19 21:45 Glucose (Glucose 40%) 15 - 30 gm PO UD PRN; Protocol PRN Reason: Hypoglycemia Protocol Stop: 01/21/19 21:45 Glucose (Dex4 Glucose) 4 - 8 tabs PO UD PRN; Protocol PRN Reason: Hypoglycemia Protocol Stop: 01/21/19 21:45 Guaifenesin (Mucinex) 600 mg PO Q12H PRN PRN Reason: Congestion Stop: 01/21/19 21:45 Heparin Sodium (Porcine) (Heparin Sodium (Porcine)) 5,000 units SQ Q12 [facility] Stop: 01/21/19 21:45 Last Admin: 12/24/18 08:08 Dose: 5,000 units Documented by: Azithromycin 250 mg/ Dextrose 252.5 mls @ 125 mls/hr IV Q24H [facility] Stop: 12/30/18 13:59 Last Infusion: 12/23/18 16:16 Dose: Infused Documented by: Piperacillin Sod/Tazobactam (Sod 3.375 gm/ Dextrose) 115 mls @ 28.75 mls/hr IV Q8H [facility]; Protocol Stop: 12/30/18 00:00 Last Admin: 12/24/18 08:07 Dose: 28.8 mls/hr Documented by: Insulin Aspart (Novolog Flexpen) 0 units SC ACHS [facility] Stop: 01/21/19 21:45 Last Admin: 12/24/18 08:09 Dose: 8 units Documented by: Ioversol (Optiray 320 125ml) 116 ml IV ONCE PRN PRN Reason: Interaction Checking Stop: 12/26/18 18:57 Last Admin: 12/22/18 18:58 Dose: 116 ml Documented by: Isosorbide Mononitrate (Imdur Extended Rel) 60 mg PO DAILY [facility] Stop: 01/22/19 08:59 Last Admin: 12/24/18 08:08 Dose: 60 mg Documented by: Lactobacillus Acidophilus (Floranex) 4 tab PO TIDM [facility] Stop: 01/22/19 07:59 Last Admin: 12/24/18 08:07 Dose: 4 tab Documented by: Levalbuterol HCl (Xopenex 1.25mg/3ml Neb) 1.25 mg NEB Q6R [facility] Stop: 01/21/19 21:45 Last Admin: 12/24/18 06:59 Dose: 1.25 mg Documented by: Magnesium Oxide (Mag-Ox) 400 mg PO DAILY [facility] Stop: 01/22/19 08:59 Last Admin: 12/24/18 08:08 Dose: 400 mg Documented by: Metoprolol Tartrate (Lopressor) 25 mg PO TID [facility] Stop: 01/21/19 21:45 Last Admin: 12/24/18 08:08 Dose: 25 mg Documented by: Miscellaneous (Carbohydrates For Hypoglycemia) 15 - 30 gm PO UD PRN PRN Reason: Hypoglycemia Treatment Stop: 01/21/19 21:45 Miscellaneous Information (Consult) 1 ea N/A UD PRN PRN Reason: Consult Stop: 01/21/19 18:20 Miscellaneous Information (Consult Glycemic Management Pharmacy) 1 ea N/A UD PRN PRN Reason: Consult Stop: 01/22/19 09:24 Multivitamins (Multivitamin Tab) 1 tab PO DAILY [facility] Stop: 01/22/19 08:59 Last Admin: 12/24/18 08:08 Dose: 1 tab Documented by: Multivitamins/Minerals (Caltrate Plus) 1 tab PO DAILY [facility] Stop: 01/22/19 08:59 Last Admin: 12/24/18 08:08 Dose: 1 tab Documented by: Nitroglycerin (Nitrostat) 0.4 mg SL PRN PRN PRN Reason: Chest Pain Stop: 01/21/19 21:45 Dutasteride 0.5mg Capsule~Non- Formulary Patient's Own Med 1 ea PO DAILY [facility] Stop: 01/24/19 08:59 Ondansetron HCl (Zofran) 4 mg IV Q6H PRN PRN Reason: Nausea Stop: 01/21/19 21:45 Prednisone (Prednisone) 40 mg PO DAILY [facility] Stop: 01/22/19 08:59 Last Admin: 12/24/18 08:08 Dose: 40 mg Documented by: Simvastatin (Zocor) 40 mg PO HS [facility] Stop: 01/21/19 21:45 Last Admin: 12/23/18 20:37 Dose: 40 mg Documented by: Vitamin D (Vitamin D3) 1,000 units PO DAILY [facility] Stop: 01/22/19 08:59 Last Admin: 12/24/18 08:08 Dose: 1,000 units Documented by: Resident Activity Tracking Resident Involvement: Resident Care Provided Care Provided: [facility] Medicine (1) BPH (benign prostatic hyperplasia) Lower urinary tract symptom detail: urinary frequency Lower urinary tract symptom presence: symptoms present Qualified Code(s): N40.1 - Benign prostatic hyperplasia with lower urinary tract symptoms; R35.0 - Frequency of micturition (2) Hematuria Hematuria type: gross Qualified Code(s): R31.0 - Gross hematuria (3) Diabetes Diabetes mellitus complication detail: with polyneuropathy Diabetes mellitus complication status: with neurologic complications Diabetes mellitus rn long term care insulin use: without rn long term care use Diabetes mellitus type: type 2 Qualified Code(s): E11.42 - Type 2 diabetes mellitus with diabetic polyneuropathy (4) CAD (coronary artery disease) Associated angina: without angina Coronary Disease-Associated Artery/Lesion type: [place] artery [place] vs. transplanted heart: [place] heart Qualified Code(s): I25.10 - Atherosclerotic heart disease of [place] coronary artery without angina pectoris (5) Hyperlipidemia Hyperlipidemia type: unspecified Qualified Code(s): E78.5 - Hyperlipidemia, unspecified (6) Pancreatitis Acute pancreatitis complication: no infection or necrosis Chronicity: acute Pancreatitis type: unspecified pancreatitis type Qualified Code(s): K85.90 - Acute pancreatitis without necrosis or infection, unspecified (7) Hypertension Hypertension type: essential hypertension Qualified Code(s): I10 - Essential (primary) hypertension
[2018-12-24] MEDS: DOXAZosin MESYLATE TAB 2 MG TAB PO SCH (12:08)
[2018-12-24] MEDS: DUTASTERIDE 0.5 MG PO SCH (12:09)
[2018-12-24] MEDS: AZITHROMYCIN 250 MG in DEXTROSE 5% 250 ML IV SCH (14:19)
--- NOTE | 2018-12-24 14:40 | Pharmacy Report ---
Pharmacy Glycemic Short Note 2 - Date of Service December 24, 2018 - Glycemic Short BSG Results (Last 24 hours): 12/23/18 12/23/18 12/23/18 14:37 16:48 20:07 Glucose POC Glucose 370 H* 334 H 313 H 12/24/18 12/24/18 12/24/18 00:23 00:25 04:06 Glucose POC Glucose 314 H 264 H 240 H 12/24/18 12/24/18 12/24/18 07:02 07:32 07:33 Glucose 229 H POC Glucose 422 H* 349 H 12/24/18 12/24/18 12/24/18 07:33 07:42 11:37 Glucose POC Glucose 245 H 230 H 255 H ASSESSMENT: * BSGs slowly improving today. BSGs yesterday mostly in the 300s. He did require 75 units of insulin. Today BSGs slightly improved: 230, 255mg/dL. Prednisone 40mg daily continues. PLAN FOR INPATIENT GLYCEMIC CONTROL: * Hold outpatient oral diabetes medications * Basal insulin * NPH 20 units x1 to help antagonize prednisone's effect on BSGs * Bolus insulin - tightened * NovoLog per scale ACHS or Q6hrs while NPO * Goal Range: Low 110mg/dL - High 140 mg/dL * Correction Factor: 25 mg/dL/unit * Nutritional / Prandial insulin per carb ratio of 1 unit per 7 grams CHO consumed
--- NOTE | 2018-12-24 16:28 | Discharge Summary ---
Date of Service December 25, 2018 Admission HPI Per Admitting Provider Mr. Freed is an 88 year old, very pleasant gentleman with a history of interstitial lung disease, paroxysmal atrial fibrillation, coronary artery disease s/p NM in 1979, hypercholesterolemia, hypertension, hx of diverticulitis w/bowel perforation s/p colostomy, diabetes mellitus type 2, hx of pancreatitis, and BPH who presents to the emergency department due to fever, chills, cough and weakness. He states that he saw Suzan Mora [whom he follows for for his interstitial pulmonary disease] on December 02, who put him on a course of doxycycline as well as a steroid taper for an increasingly productive cough. He states that this cleared up most of his mucus, but he was still having some trouble breathing. Today, he states that he had a worsening productive cough [denies hemoptysis], and endorses fever with chills, as well as nausea and dry heaves. His states that he looked as though he was "crumbling" and nearly fell, although she was able to prevent this. He denies chest pain, palpitations, and abdominal pain. He states he was unable to take his usual home meds this morning due to nausea. Of note, he is a prior smoker. He quit in 1963, however he had a [id number] history, and states he used to smoke cigarettes, cigars and chew tobacco. He denies use of alcohol or recreational drugs. With regards to his interstitial lung disease, this is attributed to his asbestos exposure during the [place] War. 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 He has a history of paroxysmal afib. but has been in sinus rhythm during most recent clinic visits. Not on anticoagulation due to fall risk. Admission Exam Per Admitting Provider Constitutional: well developed, well nourished, average body habitus, + frail appearing and cooperative Looks unwell and dehydrated Eyes: PERRL, conjunctivae normal, anicteric sclerae ENMT: external ear and nose normal, oropharynx normal Hoarse voice Respiratory: normal respiratory effort Auscultation: + diminished lung sounds and + rhonchi (Bilaterally) Cardiovascular: Rate/Rhythm: regular rhythm and + tachycardic Vessels: radial pulses present; no JVD Extremities: normal capillary refill; no calf ten derness and no pedal edema Gastrointestinal (Abdomen): Percussion/Palpation: abdomen soft; abdomen nontender, no guarding and abdomen not rigid Colostomy bag over left side of abdomen Skin: no rashes, warm and dry Neurologic: Motor/Sensory: + sensory deficit (b/l lower extremities) Psychiatric: A+Ox3, euthymic affect Principal Diagnosis Pneumonia, sepsis, uncontrolled diabetes Discharge Exam General Appearance: Awake, alert & oriented, comfortable in general, NAD. CV: +S1S2 RRR, no murmur. Pulm: Diminished lung sounds with mild bilateral rhonchi (some improvement over past 48 hours). Abdomen: +BS, soft, non-tender, non-distended. Colostomy bag on left. Extremities: No pedal edema or calf tenderness. Moving all extremities naturally and easily. Neuro: No gross neuro deficits. Discharge Data Allergies Allergy/AdvReac Type Severity Reaction Status Date / Time opium tincture Allergy Unknown unknown Verified 07/22/18 21:20 morphine AdvReac Intermediate CONFUSION Verified 07/22/18 21:20 Ordered Studies CTA of the chest on 22 December 2018 IMPRESSION: 1. Limited exam secondary to respiratory motion artifact. No central pulmonary embolus identified. 2. Cardiomegaly with mild thickening of the intralobular septa, possibly reflecting mild pulmonary edema. 3. Trace left pleural effusion. 4. 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 5. Tracheobronchial secretions with mucous plugging seen most prominently within the basal right lower lobe. 6. Mild subcarinal adenopathy, likely reactive. Hospital Course (1) Pneumonia: 88-year-old male was admitted on 22 December 2018 for home fever, chills, cough, and weakness. Sepsis, suspected pneumonia: By report, was recently on doxycycline and a steroid taper for worsening productive cough. As inpatient, nasal MRSA and influenza screening negative. CT chest suggestive of mild pulmonary edema, trace left pleural effusion, mucous plugging most prominently in the right lower lobe, and interstitial lung disease. 03Mar BCx NGTD. 04Mar sputum culture noted moderate normal tabitha. Lactate max to 8.4, improved to 2.5 with more IVF. Some continued leukocytosis (perhaps steroid-related). Stopped empiric vancomycin, kept on empiric Zosyn and azithromycin (as well as probiotics) as inpatient. On prednisone 40 mg daily, scheduled symbicort and xopenex, and pulm onary toilet. - Will discharge on three more days of augmentin and azithromycin. Interstitial lung disease: History of asbestosis with progressive symptoms worsening since 2006. Follows with Suzan Black and Dr. Walsh. See pulm meds above. Is not on oxygen at home (though patient says since some providers have recommended this). Here, has been weaned off supplemental oxygen. - Will discharge on a prednisone taper (40x2, 30x3, 20x3, 10x3) with hopes that he sees pulmonology prior to completion (in case they would like to extend this). - Clearly would benefit from close pulmonary outpatient follow-up. DM type II: At home is on glipizide. Hyperglycemic here. HbA1c is 8.3. On pharmacy glycemic consult as inpatient. - As inpatient: Bolus insulin tightened. NovoLog per scale ACHS or Q6hrs while NPO. Goal Range: Low 110mg/dL - High 140 mg/dL. Correction Factor: 25 mg/dL/unit. Nutritional / Prandial insulin per carb ratio of 1 unit per 7 grams CHO consumed - As inpatient, was also on novolin prn due to the steroid hyperglycemia effect. - Can continue his home glipizide as an outpatient. Hyponatremia: Initial Na 131, receiving IVF, resolved. Monitoring. Hematuria: As noted on screening UA on admit. Does have a history of kidney stones but denies any obvious flank or colicky pain. Also denies any dysuria or urinary complaints. - Can have this followed up on as an outpatient. Ongoing medical history: - Paroxysmal A. fib: Apparently is not on anticoagulants due to fall risk. Continue digoxin and metoprolol. Follows with Dr. Espinoza. 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 - Hypertension, CAD status post NM in 1979, no stents: On aspirin, metoprolol, and Imdur. --- Unclear if on Lisinopril previously, but held due to elevated Cr (max 1.31, down to 1.21 at discharge). - Hypercholesterolemia: Continue home simvastatin. - BPH: Follows with Dr. Pena. On home doxazosin. --- Patient can take his home dutasteride 0.5 mg PO q day dose. - Pancreatitis: Hospitalization for the same in Jun 2018. - Diverticulitis with bowel perforation s/p colostomy. - ? Chronic Ibuprofen use: On his medicine reconciliation form says patient has been on ibuprofen 400 mg QID scheduled. Although he is 88 years old, it may be worth considering a different pain medication due to potential chronic renal effects. Side note: Patient had a CT scan on 25 December, previously ordered by Dr. Ernst (heme-onc) from an outpatient visit a couple weeks prior. (2) Sepsis: (3) ILD (interstitial lung disease): (4) Diabetes: (5) Hyponatremia: (6) Hematuria: (7) Paroxysmal atrial fibrillation: (8) Hypertension: (9) CAD (coronary artery disease): (10) Hyperlipidemia: (11) BPH (benign prostatic hyperplasia): (12) Pancreatitis: (13) Diverticular disease: Total Time Total Time Spent Total Time Spent (In Minutes): > 30 min Discharge Plan Discharge Items Patient Disposition: Transfer [facility] Fac Reason For Visit: SEPSIS, PNEUMONIA, FAILED OUTPATIENT TREATMENT Discharge Diagnosis: Pneumonia, sepsis Discharge Goals: Decrease discomfort, Improve function and Increase independence Activity: Per 'Additional Instructions' section Non-emergency contact: Primary Care Provider Call non-emergency contact if: you have any medication questions Follow-up/Referrals: Amanda Newell [Primary Care Provider] - Diet: Carb Consistent or DM2 and Heart Healthy Addtl Provider Instructions: You were admitted to the hospital on December 22, 2018 for fever, chills, cough, and weakness. While in the hospital we evaluated the following issues: Suspected pneumonia: Due to your fever, chills, and some findings on CT scan of your chest, there was some concern for pneumonia. In the hospital you were kept on antibiotics to treat this. - We have written new prescriptions for two antibiotics, augmentin and azithromycin, both for three more days. Interstitial lung disease: This is a continuation of the lung disease that you already see your operating table assembler for. Fortunately, we were able to wean you off of supplemental oxygen as your lungs improved on antibiotics. We kept you on a higher dose of prednisone here as initial treatment. - We have written a new prescription for continued prednisone taper. Please take this until you are seen by your operating table assembler for likely weaning. Type 2 diabetes: While in the hospital we treated you with insulin to control your blood sugars. Once you are discharged from the hospital, you can return to your home glipizide medication. You may continue to need some insulin with your meals. - Overall it is very important that you follow-up with your primary care provider and/or the rehabilitation medical providers for adjustment of your diabetes medicines to keep your blood sugars under control. Small amounts of blood in your urine (hematuria): We noticed on routine labs that there was a little bit of blood in your urine. You mentioned that you may have a history of kidney stones, so this may be the cause of this blood. - We recommend a recheck of your urine with your primary care provider to make sure that this does not worsen. Otherwise, you should be remaining on the same medications that you are on prior to this hospitalization. The exception may be lisinopril, which you should stop taking until cleared by your doctor. Your antibiotics and prednisone were sent to the [facility] in [place]. Please try to follow up with your operating table assembler before your steroids complete. It remains very important that you follow-up with both your primary care provider and your operating table assembler as soon as possible for good post- hospitalization continuity of care. Of course, if you were to develop any return of the fever, difficulty breathing, chest pain, or any other emergent concerns you should be transferred to the nearest emergency department. Prescriptions: New azithromycin 250 mg tablet 250 mg PO DAILY 3 Days Qty: 3 RF: 0 amoxicillin-pot clavulanate [Augmentin] 500-125 mg tablet 1 tab PO BID 3 Days Qty: 6 RF: 0 prednisolone sodium phosphate 10 mg tablet,disintegrating See Rx Instructions .ROUTE .COMPLEX Qty: 26 RF: 0 Continued ergocalciferol (vitamin D2) [Vitamin D2] 50,000 unit capsule 50,000 units PO WK RF: 0 multivitamin Tablet 1 tab PO DAILY RF: 0 albuterol sulfate 2.5 mg /3 mL (0.083 %) Solution For Nebulization 1 dose INHALATION Q4H PRN (Reason: Shortness Of Breath) RF: 0 glipizide 10 mg Tablet 10 mg PO DAILY RF: 0 folic acid 400 mcg Tablet 0.4 mg PO DAILY RF: 0 aspirin [Aspirin Low Dose] 81 mg Tablet,Delayed Release (Dr/Ec) 81 mg PO DAILY RF: 0 isosorbide mononitrate 60 mg Tablet Extended Release 24 Hr 60 mg PO DAILY RF: 0 magnesium oxide 400 mg (241.3 mg magnesium) Tablet 400 mg PO DAILY RF: 0 flunisolide 25 mcg (0.025 %) Shubert,Non-Aerosol 2 spray INTRANASAL DAILY RF: 0 ibuprofen 400 mg Tablet 400 mg PO QID RF: 0 metoprolol tartrate 50 mg Tablet 25 mg PO TID RF: 0 nitroglycerin [Nitrostat] 0.4 mg Tablet, Sublingual 0.4 mg Sublingual DIRECTED PRN (Reason: Chest Pain) RF: 0 mometasone [Nasonex] 50 mcg/actuation Shubert,Non-Aerosol 2 spray INTRANASAL DAILY RF: 0 digoxin 125 mcg Tablet 0.125 mg PO DAILY RF: 0 Lactobacillus acidophilus [Acidophilus] Capsule PO DAILY RF: 0 doxazosin 2 mg Tablet 2 mg PO DAILY RF: 0 dutasteride 0.5 mg Capsule 0.5 mg PO DAILY RF: 0 Glucosamine Complex-MSM Capsule 1,500 mg PO BID RF: 0 Calcium 600 + D(3) 600 mg calcium- 200 unit Capsule 1 tab PO DAILY RF: 0 guaifenesin [Mucinex] 600 mg Tablet Extended Release 12hr 600 mg PO Q12H PRN (Reason: Congestion) RF: 0 simvastatin [Zocor] 40 mg Tablet 40 mg PO HS RF: 0 ascorbic acid (vitamin C) [Vitamin C] 500 mg Tablet 500 mg PO TID RF: 0 Héctor-E 200 mg Tablet PO BID RF: 0 cholecalciferol (vitamin D3) [Vitamin D3] 1,000 unit Tablet 1,000 unit PO DIRECTED RF: 0 Symbicort 80-4.5 mcg/actuation Hfa Aerosol Inhaler 2 puff INHALATION BID RF: 0 Spiriva Respimat 2.5 mcg/actuation Mist 2 puff INHALATION BID RF: 0 [place]-3 Fish Oil 300-1,000 mg Capsule 1 cap PO TID RF: 0 Refresh Eye Itch Relief 1 drp OPB Q12 PRN (Reason: Itching) RF: 0 Discontinued lisinopril 5 mg Tablet 5 mg PO DAILY RF: 0 Stand-Alone Forms: [facility] Discharge Orders: Discharge Order (Routine); Ordered 12/25/18 Ordered By: Ulisses Knight Skilled Items Patient informed of condition?: Yes DNR: No Discharge Level of Care: Acute rehab Communicable Disease: No Discharge Prognosis: Stable Admission Data Admit Date/Time: 12/22/18 20:36 Attending Provider: Christian Patrick Admit Provider: Scarlet Arreola Primary Care Provider: Amanda Newell Other Providers: Christian Patrick Service: Telemetry Medical Other Interventions: Discharge Summary Assessment (RN) Last Done: 12/25/18 14:00 DC Date/Time DO NOT enter until pt leaves facility: 12/25/18 15:45 Supervising Physician Co-Signing Physician Notes Patient seen and examined with the resident. Agree with history, physical exam, assessment and plan with the following updates/corrections: 88yo M w/ hx of ILD, DM, HTN, afib who presents with cough, shortness of breath, and sputum production. 1) SOB - Likely mucus plugging that he spontaneously has cleared or that cleared with DuoNebs/chest physiotherapy or a mild exacerbation of his ILD. - Got antibiotics, DuoNebs, steroids, and chest therapy treatments - Sputum culture had some Gram(-) diplococci, possibly Moraxella, so discharged on Augmentin and azithromycin to cover any possible atypicals. - Discharged on steroid taper. 2) Lactic acidosis - POC lactate was 3.45 on admission, then up to 8.4 the morning of 12/23. Did not correlate with physical exam or patient's clinical status as he was sitting comfortably in bed stating he is dramatically improved. - Given IV fluid bolus -> Down to 2.5 on 12/24 - No further needs 3) DM - A1c was 8.4%. - Held home oral med - Discharged on insulin regimen per glycemic pharmacist Resident Activity Tracking Resident Involvement: Resident Care Provided Care Provided: Adult Hospital Medicine
[2018-12-24] MEDS: DIGOXIN 0.125 MG TAB PO SCH (16:31)
[2018-12-24] MEDS: SIMVASTATIN 40 MG TAB PO SCH (20:34)
--- NOTE | 2018-12-25 00:55 | Emergency Department Note ---
Entered by Suzan Persaud acting as a scribe for History of Present Illness General Chief complaint: Flu Like Symptoms Stated complaint: FLU LIKE SX, NAUSEA, VOMITING Source: patient Mode of arrival: EMS Limitations: no limitations History of Present Illness Provider complaint: Flu Sx Onset (ago): day(s) 3 Location: chest Severity: moderate Pain Consistency: + constant Associated symptoms: + denies other symptoms, + cough, + fever/chills and + nausea/vomiting (+ nausea, - vomiting) Treatments prior to arrival: none Patient is a 88 year old male presenting to the ED with flu like sx beginning x3 days ago. Per patient, he has been having a fever, chills, and congestion since onset, which is moderate in severity and constant since onset. Patient also complains of nausea, but denies vomiting or diarrhea. He denies any other compl aints or concerns at this time. Patient resides at home and does not wear oxygen at home. He denies taking any medications for the sx. Home Medications Home Medications Medication Instructions Recorded Confirmed Type Calcium 600 + D(3) 1 tab PO DAILY 07/01/18 12/22/18 History Glucosamine Complex-MSM 1,500 mg PO BID 07/01/18 12/22/18 History Lactobacillus acidophilus 0 mg PO DAILY 07/01/18 12/22/18 History [Acidophilus] [place]-3 Fish Oil 1 cap PO TID 07/01/18 12/22/18 History Refresh Eye Itch Relief 1 drp OPB Q12 PRN 07/01/18 12/22/18 History Héctor-E 0 mg PO BID 07/01/18 12/22/18 History Spiriva Respimat 2 puff INHALATION BID 07/01/18 12/22/18 History Symbicort 2 puff INHALATION BID 07/01/18 12/22/18 History albuterol sulfate 1 dose INHALATION Q4H PRN 07/01/18 12/22/18 History ascorbic acid (vitamin C) [Vitamin 500 mg PO TID 07/01/18 12/22/18 History C] aspirin [Aspirin Low Dose] 81 mg PO DAILY 07/01/18 12/22/18 History cholecalciferol (vitamin D3) 1,000 unit PO DIRECTED 07/01/18 12/22/18 History [Vitamin D3] digoxin 0.125 mg PO DAILY 07/01/18 12/22/18 History doxazosin 2 mg PO DAILY 07/01/18 12/22/18 History dutasteride 0.5 mg PO DAILY 07/01/18 12/22/18 History flunisolide 2 spray INTRANASAL DAILY 07/01/18 12/22/18 History folic acid 0.4 mg PO DAILY 07/01/18 12/22/18 History glipizide 10 mg PO DAILY 07/01/18 12/22/18 History guaifenesin [Mucinex] 600 mg PO Q12H PRN 07/01/18 12/22/18 History ibuprofen 400 mg PO QID 07/01/18 12/22/18 History isosorbide mononitrate 60 mg PO DAILY 07/01/18 12/22/18 History lisinopril 5 mg PO DAILY 07/01/18 12/22/18 History magnesium oxide 400 mg PO DAILY 07/01/18 12/22/18 History metoprolol tartrate 25 mg PO TID 07/01/18 12/22/18 History mometasone [Nasonex] 2 spray INTRANASAL DAILY 07/01/18 12/22/18 History multivitamin 1 tab PO DAILY 07/01/18 12/22/18 History nitroglycerin [Nitrostat] 0.4 mg SUBLINGUAL DIRECTED PRN 07/01/18 12/22/18 History simvastatin [Zocor] 40 mg PO HS 07/01/18 12/22/18 History ergocalciferol (vitamin D2) 50,000 units PO WK 12/22/18 12/22/18 History [Vitamin D2] Allergies Allergy/AdvReac Type Severity Reaction Status Date / Time opium tincture Allergy Unknown unknown Verified 07/22/18 21:20 morphine AdvReac Intermediate CONFUSION Verified 07/22/18 21:20 Past Med/Surg History Medical History BPH (benign prostatic hyperplasia) Bronchiectasis CAD (coronary artery disease) s/p myocardial infarction. No stent in place. 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 Secondary to perforated diverticuli Diabetes Diverticulosis History of herpes zoster Hyperlipidemia Hypertension Interstitial lung disease Orthostatic hypotension Paroxysmal atrial fibrillation Small bowel obstruction Family History Other Diabetes Hypertension Social History Communication Ability: Effective Beliefs That Will Affect Care: None marital status: Current Living Situation: Spouse current occupational status: retired Feels Safe at Home: Yes Safety Concerns: Feels Safe At This Time Smoking Status: Former smoker Hx Alcohol Use: No Hx Substance Use: No Review of Systems See HPI for pertinent positives & negatives. and A total of 10 systems reviewed and were otherwise negative Physical Exam Vital Signs Vital Signs - 24 hr 12/24/18 01:59 12/24/18 03:46 12/24/18 07:01 Temperature 36.5 C Temperature Source Oral Pulse Rate Pulse Rate [Right Finger] 87 86 Respiratory Rate 16 18 18 Respiratory Effort / Characteristics Non-Labored Spontaneous Non-Labored Spontaneous Respiratory Depth Respiratory Pattern Blood Pressure [Left Arm] 151/72 H Blood Pressure [Right Arm] Blood Pressure Mean [Left Arm] 98 Blood Pressure Mean [Right Arm] Blood Pressure Position [Left Arm] Lying Blood Pressure Position [Right Arm] Pulse Oximetry 94 96 97 Oxygen Delivery Method Room Air Room Air Room Air 12/24/18 07:27 12/24/18 08:00 12/24/18 11:38 Temperature 36.7 C 36.4 C L Temperature Source Oral Oral Pulse Rate 73 Pulse Rate [Right Finger] 91 H 71 Respiratory Rate 18 16 Respiratory Effort / Characteristics SOB on Exertion Respiratory Depth Normal Respiratory Pattern Regular Blood Pressure [Left Arm] 144/65 H 123/63 Blood Pressure [Right Arm] Blood Pressure Mean [Left Arm] 91 83 Blood Pressure Mean [Right Arm] Blood Pressure Position [Left Arm] Lying Lying Blood Pressure Position [Right Arm] Pulse Oximetry 98 93 Oxygen Delivery Method Room Air 12/24/18 14:02 12/24/18 15:04 12/24/18 16:31 Temperature 36.3 C L Temperature Source Oral Pulse Rate 69 Pulse Rate [Right Finger] 82 89 Respiratory Rate 19 16 Respiratory Effort / Characteristics Non-Labored Spontaneous Respiratory Depth Respiratory Pattern Blood Pressure [Left Arm] Blood Pressure [Right Arm] 122/68 Blood Pressure Mean [Left Arm] Blood Pressure Mean [Right Arm] 86 Blood Pressure Position [Left Arm] Blood Pressure Position [Right Arm] Lying Pulse Oximetry 96 95 Oxygen Delivery Method Room Air 12/24/18 18:19 12/24/18 19:34 12/24/18 19:49 Temperature 36.5 C Temperature Source Oral Pulse Rate Pulse Rate [Right Finger] 68 66 Respiratory Rate 18 18 Respiratory Effort / Characteristics Non-Labored Non-Labored Spontaneous Respiratory Depth Normal Respiratory Pattern Regular Blood Pressure [Left Arm] 130/65 Blood Pressure [Right Arm] Blood Pressure Mean [Left Arm] 86 Blood Pressure Mean [Right Arm] Blood Pressure Position [Left Arm] Lying Blood Pressure Position [Right Arm] Pulse Oximetry 94 96 Oxygen Delivery Method Room Air Room Air Room Air 12/24/18 23:00 12/24/18 23:29 Temperature 36.4 C L Temperature Source Oral Pulse Rate 55 L Pulse Rate [Right Finger] 65 Respiratory Rate 18 Respiratory Effort / Characteristics Respiratory Depth Respiratory Pattern Blood Pressure [Left Arm] 143/68 H Blood Pressure [Right Arm] Blood Pressure Mean [Left Arm] 93 Blood Pressure Mean [Right Arm] Blood Pressure Position [Left Arm] Blood Pressure Position [Right Arm] Pulse Oximetry 95 Oxygen Delivery Method GENERAL: Patient is a healthy-appearing well-nourished HEAD: Normocephalic atraumatic EYES: Ocular movements intact pupils equal and react to light OROPHARYNX mucous membranes are moist no exudates present no erythema or edema present NECK: Supple no nuchal rigidity CHEST: Good equal expansion LUNGS: Rales bilaterally. CARDIAC: Normal S1 and S2 ABDOMEN: Soft nontender no guarding. Colostomy in place BACK: No CVA tenderness EXTREMITIES: No pain upon palpation normal muscle strength in all groups no clubbing cyanosis or edema NEURO: Patient is following commands is answering questions appropriately. Alert and oriented x3 Cranial Nerves 2-12 grossly intact Course 1730: Past medical records reviewed. The patient was evaluated in room C06, and a complete history and physical examination were performed. 1930: Discussed results with Dr. Jaffe, who accepts patient for admission. Administered Medications Aspirin (Ecotrin Ectab) 81 mg PO DAILY MANJE[facility] Stop: 01/22/19 08:59 Last Admin: 12/24/18 08:08 Dose: 81 mg Documented by: [id number] Admin: 12/23/18 08:28 Dose: 81 mg Documented by: [id number] Budesonide/Formoterol Fumarate (Symbicort 80mcg/4.5mcg) 2 puffs INH BID MANJEET Stop: 01/21/19 21:45 Last Admin: 12/24/18 20:33 Dose: 2 puffs Documented by: [id number] Admin: 12/24/18 08:08 Dose: 2 puffs Documented by: [id number] Admin: 12/23/18 20:38 Dose: 2 puffs Documented by: [id number] Admin: 12/23/18 08:29 Dose: 2 puffs Documented by: [id number] Admin: 12/22/18 23:45 Dose: 2 puffs Documented by: [id number] Digoxin (Lanoxin) 0.125 mg PO DAILY@1600 [facility] Stop: 01/22/19 15:59 Last Admin: 12/24/18 16:31 Dose: 0.125 mg Documented by: [id number] Admin: 12/23/18 17:11 Dose: 0.125 mg Documented by: [id number] Doxazosin Mesylate (Cardura) 2 mg PO DAILY MANJE[facility] Stop: 01/23/19 11:59 Last Admin: 12/24/18 12:08 Dose: 2 mg Documented by: [id number] Ergocalciferol (Vitamin D2) 50,000 units PO Mo@0900 [facility] Stop: 01/22/19 08:59 Last Admin: 12/23/18 08:27 Dose: 50,000 units Documented by: [id number] Fish Oil ([place]-3 (Purified Fish Oil)) 1 gm PO TID [facility] Stop: 01/21/19 21:45 Last Admin: 12/24/18 20:32 Dose: 1 gm Documented by: [id number] Admin: 12/24/18 14:19 Dose: 1 gm Documented by: [id number] Admin: 12/24/18 08:08 Dose: 1 gm Documented by: [id number] Admin: 12/23/18 20:38 Dose: 1 gm Documented by: [id number] Admin: 12/23/18 14:01 Dose: 1 gm Documented by: [id number] Admin: 12/23/18 08:29 Dose: 1 gm Documented by: [id number] Admin: 12/22/18 23:49 Dose: 1 gm Documented by: [id number] Folic Acid (Folvite) 400 mcg PO DAILY [facility] Stop: 01/22/19 08:59 Last Admin: 12/24/18 08:08 Dose: 400 mcg Documented by: [id number] Admin: 12/23/18 08:32 Dose: 400 mcg Documented by: [id number] Heparin Sodium (Porcine) (Heparin Sodium (Porcine)) 5,000 units SQ Q12 [facility]JE[facility] Stop: 01/21/19 21:45 Last Admin: 12/24/18 20:33 Dose: 5,000 units Documented by: [id number] Cosigned by: [id number] Admin: 12/24/18 08:08 Dose: 5,000 units Documented by: [id number] Cosigned by: [id number] Admin: 12/23/18 20:41 Dose: 5,000 units Documented by: [id number] Cosigned by: [id number] Admin: 12/23/18 08:36 Dose: 5,000 units Documented by: [id number] Cosigned by: [id number] Admin: 12/22/18 23:41 Dose: 5,000 units Documented by: [id number] Cosigned by: [id number] Azithromycin 250 mg/ Dextrose 252.5 mls @ 125 mls/hr IV Q24H MANJEET Stop: 12/30/18 13:59 Last Infusion: 12/24/18 16:35 Dose: 125 mls/hr Documented by: [id number] Admin: 12/24/18 14:19 Dose: 125 mls/hr Documented by: [id number] Infusion: 12/23/18 16:16 Dose: 0 mls/hr Documented by: [id number] Admin: 12/23/18 14:01 Dose: 125 mls/hr Documented by: [id number] Piperacillin Sod/Tazobactam (Sod 3.375 gm/ Dextrose) 115 mls @ 28.75 mls/hr IV Q8H MANJEET; Protocol Stop: 12/30/18 00:00 Last Admin: 12/24/18 23:57 Dose: 28.8 mls/hr Documented by: [id number] Infusion: 12/24/18 20:34 Dose: 28.8 mls/hr Documented by: [id number] Admin: 12/24/18 16:31 Dose: 28.8 mls/hr Documented by: [id number] Infusion: 12/24/18 12:10 Dose: 0 mls/hr Documented by: [id number] Admin: 12/24/18 08:07 Dose: 28.8 mls/hr Documented by: [id number] Infusion: 12/24/18 04:25 Dose: 0 mls/hr Documented by: [id number] Admin: 12/24/18 00:19 Dose: 28.8 mls/hr Documented by: [id number] Infusion: 12/23/18 20:22 Dose: 0 mls/hr Documented by: [id number] Admin: 12/23/18 16:15 Dose: 28.8 mls/hr Documented by: [id number] Infusion: 12/23/18 12:06 Dose: 0 mls/hr Documented by: [id number] Admin: 12/23/18 08:26 Dose: 28.8 mls/hr Documented by: [id number] Infusion: 12/23/18 03:25 Dose: 0 mls/hr Documented by: [id number] Admin: 12/22/18 23:24 Dose: 28.8 mls/hr Documented by: [id number] Insulin Aspart (Novolog Flexpen) 0 units SC ACHS [facility] Stop: 01/21/19 21:45 Last Admin: 12/24/18 20:32 Dose: 4 units Documented by: [id number] Cosigned by: [id number] Admin: 12/24/18 18:06 Dose: 9 units Documented by: [id number] Cosigned by: [id number] Admin: 12/24/18 12:02 Dose: 7 units Documented by: [id number] Cosigned by: [id number] Admin: 12/24/18 08:09 Dose: 8 units Documented by: [id number] Cosigned by: [id number] Admin: 12/23/18 20:43 Dose: 6 units Documented by: [id number] Cosigned by: [id number] Admin: 12/23/18 18:07 Dose: 15 units Documented by: [id number] Cosigned by: [id number] Admin: 12/23/18 12:51 Dose: 12 units Documented by: [id number] Cosigned by: [id number] Admin: 12/23/18 08:39 Dose: 13 units Documented by: [id number] Cosigned by: [id number] Admin: 12/22/18 23:40 Dose: 4 units Documented by: [id number] Cosigned by: [id number] Ioversol (Optiray 320 125ml) 116 ml IV ONCE PRN PRN Reason: Interaction Checking Stop: 12/26/18 18:57 Last Admin: 12/22/18 18:58 Dose: 116 ml Documented by: [id number] Isosorbide Mononitrate (Imdur Extended Rel) 60 mg PO DAILY [facility] Stop: 01/22/19 08:59 Last Admin: 12/24/18 08:08 Dose: 60 mg Documented by: [id number] Admin: 12/23/18 08:37 Dose: Not Given Documented by: [id number] Lactobacillus Acidophilus (Floranex) 4 tab PO TIDM MANJEET Stop: 01/22/19 07:59 Last Admin: 12/24/18 16:33 Dose: 4 tab Documented by: [id number] Admin: 12/24/18 12:02 Dose: 4 tab Documented by: [id number] Admin: 12/24/18 08:07 Dose: 4 tab Documented by: [id number] Admin: 12/23/18 17:11 Dose: 4 tab Documented by: [id number] Admin: 12/23/18 12:07 Dose: 4 tab Documented by: [id number] Admin: 12/23/18 08:27 Dose: 4 tab Documented by: [id number] Levalbuterol HCl (Xopenex 1.25mg/3ml Neb) 1.25 mg NEB Q6R MANJEET Stop: 01/21/19 21:45 Last Admin: 12/24/18 19:46 Dose: 1.25 mg Documented by: [id number] Admin: 12/24/18 14:02 Dose: 1.25 mg Documented by: [id number] Admin: 12/24/18 06:59 Dose: 1.25 mg Documented by: [id number] Admin: 12/24/18 01:58 Dose: 1.25 mg Documented by: [id number] Admin: 12/23/18 19:54 Dose: 1.25 mg Documented by: [id number] Admin: 12/23/18 13:56 Dose: 1.25 mg Documented by: [id number] Admin: 12/23/18 07:07 Dose: 1.25 mg Documented by: [id number] Admin: 12/23/18 02:19 Dose: 1.25 mg Documented by: [id number] Admin: 12/22/18 22:41 Dose: Not Given Documented by: [id number] Magnesium Oxide (Mag-Ox) 400 mg PO DAILY [facility] Stop: 01/22/19 08:59 Last Admin: 12/24/18 08:08 Dose: 400 mg Documented by: [id number] Admin: 12/23/18 08:30 Dose: 400 mg Documented by: [id number] Metoprolol Tartrate (Lopressor) 25 mg PO TID MANJEET Stop: 01/21/19 21:45 Last Admin: 12/24/18 20:32 Dose: 25 mg Documented by: [id number] Admin: 12/24/18 14:19 Dose: 25 mg Documented by: [id number] Admin: 12/24/18 08:08 Dose: 25 mg Documented by: [id number] Admin: 12/23/18 20:39 Dose: 25 mg Documented by: [id number] Admin: 12/23/18 14:01 Dose: 25 mg Documented by: [id number] Admin: 12/23/18 08:33 Dose: 25 mg Documented by: [id number] Admin: 12/22/18 23:46 Dose: 25 mg Documented by: [id number] Multivitamins (Multivitamin Tab) 1 tab PO DAILY MANJEET Stop: 01/22/19 08:59 Last Admin: 12/24/18 08:08 Dose: 1 tab Documented by: [id number] Admin: 12/23/18 08:31 Dose: 1 tab Documented by: [id number] Multivitamins/Minerals (Caltrate Plus) 1 tab PO DAILY MANJEET Stop: 01/22/19 08:59 Last Admin: 12/24/18 08:08 Dose: 1 tab Documented by: [id number] Admin: 12/23/18 08:31 Dose: 1 tab Documented by: [id number] Dutasteride 0.5mg Capsule~Non- Formulary Patient's Own Med 1 ea PO DAILY MANJE[facility] Stop: 01/23/19 08:59 Last Admin: 12/24/18 12:09 Dose: 1 mg Documented by: [id number] Prednisone (Prednisone) 40 mg PO DAILY MANJE[facility] Stop: 01/22/19 08:59 Last Admin: 12/24/18 08:08 Dose: 40 mg Documented by: [id number] Admin: 12/23/18 08:29 Dose: 40 mg Documented by: [id number] Simvastatin (Zocor) 40 mg PO HS MANJEET Stop: 01/21/19 21:45 Last Admin: 12/24/18 20:34 Dose: 40 mg Documented by: [id number] Admin: 12/23/18 20:37 Dose: 40 mg Documented by: [id number] Admin: 12/22/18 23:49 Dose: 40 mg Documented by: [id number] Vitamin D (Vitamin D3) 1,000 units PO DAILY [facility]JE[facility] Stop: 01/22/19 08:59 Last Admin: 12/24/18 08:08 Dose: 1,000 units Documented by: [id number] Admin: 12/23/18 08:29 Dose: 1,000 units Documented by: [id number] Discontinued Medications Acetaminophen (Tylenol) 1,000 mg PO NOW STA Stop: 12/22/18 17:27 Last Admin: 12/22/18 17:36 Dose: 1,000 mg Documented by: [id number] Ascorbic Acid (Vitamin C) 500 mg PO TID MANJEET Stop: 01/21/19 21:45 Last Admin: 12/23/18 14:01 Dose: Not Given Documented by: [id number] Admin: 12/23/18 08:30 Dose: 500 mg Documented by: [id number] Admin: 12/22/18 23:50 Dose: 500 mg Documented by: [id number] Piperacillin Sod/Tazobactam Sod (Zosyn) 4.5 gm in 120 mls @ 240 mls/hr IV NOW ONE Stop: 12/22/18 18:50 Last Infusion: 12/22/18 20:20 Dose: 0 mls/hr Documented by: [id number] Admin: 12/22/18 19:01 Dose: 240 mls/hr Documented by: [id number] Levofloxacin/Dextrose (Levaquin/D5w) 750 mg in 150 mls @ 100 mls/hr IV NOW STA Stop: 12/22/18 19:50 Last Infusion: 12/22/18 20:33 Dose: 0 mls/hr Documented by: [id number] Admin: 12/22/18 19:01 Dose: 100 mls/hr Documented by: [id number] Methylprednisolone 60 mg/ (Syringe) 1.96 mls @ 1.5 mls/min IV NOW STA Stop: 12/22/18 18:22 Last Admin: 12/22/18 19:11 Dose: Not Given Documented by: [id number] Sodium Chloride (Nss 1000ml) 1,000 mls @ 999 mls/hr IV .Q1H1M ONE Stop: 12/22/18 19:21 Last Infusion: 12/22/18 20:20 Dose: 0 mls/hr Documented by: [id number] Admin: 12/22/18 19:02 Dose: 999 mls/hr Documented by: [id number] Lactated Ringer's (Lr) 1,000 mls @ 100 mls/hr IV .Q10H MANJEET Stop: 12/23/18 17:45 Last Infusion: 12/23/18 20:29 Dose: 0 mls/hr Documented by: [id number] Admin: 12/23/18 08:26 Dose: 100 mls/hr Documented by: [id number] Infusion: 12/23/18 08:26 Dose: 100 mls/hr Documented by: [id number] Admin: 12/23/18 01:31 Dose: 100 mls/hr Documented by: [id number] Vancomycin HCl 1,250 mg/ (Sodium Chloride) 275 mls @ 125 mls/hr IV TODAY@2230 ONE Stop: 12/23/18 00:41 Last Infusion: 12/23/18 01:42 Dose: 0 mls/hr Documented by: [id number] Admin: 12/22/18 23:24 Dose: 125 mls/hr Documented by: [id number] Sodium Chloride (Nss 1000ml) 1,000 mls @ 999 mls/hr IV .Q1H1M ONE Stop: 12/23/18 12:56 Last Infusion: 12/23/18 14:15 Dose: 0 mls/hr Documented by: [id number] Admin: 12/23/18 12:08 Dose: 500 mls/hr Documented by: [id number] Insulin Aspart (Novolog Flexpen) 0 units SC TODAY@0000,0400 [facility] Stop: 12/24/18 04:01 Last Admin: 12/24/18 04:10 Dose: 4 units Documented by: [id number] Cosigned by: [id number] Admin: 12/24/18 00:26 Dose: 5 units Documented by: [id number] Cosigned by: [id number] Insulin Glargine (Lantus Per Unit) 14 units SQ TODAY@1245 ONE Stop: 12/23/18 12:46 Last Admin: 12/23/18 12:52 Dose: 14 units Documented by: [id number] Cosigned by: [id number] Insulin Glargine (Lantus Per Unit) 10 units SQ TODAY@2100 ONE Stop: 12/23/18 21:01 Last Admin: 12/23/18 21:19 Dose: 10 units Documented by: [id number] Cosigned by: [id number] Insulin Human NPH (Novolin N U-100 Nph Per Unit) 20 units SQ 0900 ONE Stop: 12/24/18 09:01 Last Admin: 12/24/18 10:18 Dose: 20 units Documented by: [id number] Cosigned by: [id number] Levalbuterol HCl (Xopenex 1.25mg/0.5ml Neb) 1.25 mg NEB NOW STA Stop: 12/22/18 17:31 Last Admin: 12/22/18 17:40 Dose: 1.25 mg Documented by: [id number] Methylprednisolone (Solumedrol) Confirm Administered Dose 125 mg .ROUTE .STK-MED ONE Stop: 12/22/18 18:58 Last Admin: 12/22/18 19:01 Dose: 60 mg Documented by: [id number] Miscellaneous (Order Awaiting Action) 1 ea N/A QS MANJEET Stop: 01/22/19 15:59 Last Admin: 12/24/18 07:28 Dose: Not Given Documented by: [id number] Admin: 12/24/18 00:12 Dose: Not Given Documented by: [id number] Admin: 12/23/18 16:14 Dose: Not Given Documented by: [id number] Ondansetron HCl (Zofran) 4 mg IV NOW STA Stop: 12/22/18 18:22 Last Admin: 12/22/18 19:01 Dose: 4 mg Documented by: [id number] Medical Decision Making Differential Diagnosis Differential diagnosis: Etiologies such as viral syndrome, otitis, pharyngitis, pneumonia, influenza, meningitis, urinary tract infection, sepsis, bacteremia, as well as others were entertained Medical Records Attestation: I reviewed the patient's medical records. Home Medications Current Medication List: was personally reviewed by me Laboratory Data Attestation: I reviewed the patient's lab results. Result diagrams: 12/24/18 07:02 12/24/18 07:02 Lab Results 12/22/18 12/22/18 12/22/18 Range/Units 17:28 17:28 17:28 WBC 10.97 H (4.8-10.8) K/uL RBC 4.90 (4.7-6.1) M/uL Hgb 15.7 (14.0-18.0) g/dL POC Hgb (14.0-18.0) g/dl Hct 45.0 (42-52) % POC Hct (42-52) % MCV 91.8 (80-100) fL MCH 32.0 (25-34) pg MCHC 34.9 (32-36) g/dL RDW Std Deviation 42.4 (36.4-46.3) fL RDW Coeff of Jose Luis 12.6 (11.5-14.5) % Plt Count 99 L (130-400) K/uL MPV 9.5 (7.4-10.4) fL Immature Gran % (Auto) 0.4 % Neut % (Auto) 81.8 % Lymph % (Auto) 8.0 % [place] % (Auto) 9.0 % Eos % (Auto) 0.5 % Baso % (Auto) 0.3 % Immature Gran # (Auto) 0.04 H (0.00-0.02) K/uL Neut # (Auto) 8.98 H (1.4-6.5) K/uL Lymph # (Auto) 0.88 L (1.2-3.4) K/uL [place] # (Auto) 0.99 H (0.11-0.59) K/uL Eos # (Auto) 0.05 (0-0.5) K/uL Baso # (Auto) 0.03 (0-0.2) K/uL Platelet Estimate Decreased (Normal) PT (9.0-12.0) Seconds INR (0.9-1.1) APTT (21.0-31.0) Seconds PTT Ratio POC Sodium (135-144) mEq/L Sodium 131 L (136-145) mmol/L POC Potassium (3.3-5.0) mEq/L Potassium 4.3 (3.5-5.1) mmol/L POC Chloride (101-112) mEq/L Chloride 98 (98-107) mmol/L Carbon Dioxide 21 (21-32) mmol/L POC Total CO2 (24-31) mEq/l Anion Gap 12.0 H (3-11) POC Anion Gap (16-25) mmol/L POC BUN (7-18) mg/dl BUN 16 (7-18) mg/dl Creatinine 1.05 (0.6-1.4) mg/dl POC Creatinine (0.6-1.3) mg/dl Est Cr Clr Drug Dosing 38.3 ml/min Est GFR ( Amer) 73.6 Est GFR (Non-Af Amer) 63.5 BUN/Creatinine Ratio 15.1 (10-20) Glucose 236 H (70-99) mg/dl POC Glucose (70-99) POC Glucose (other) (70-99) mg/dl Estimat Average Glucose mg/dl Hemoglobin A1c (4.5-5.6) % POC Lactic Acid Yair (0.90-1.70) mmol/L Lactate (0.4-2.0) mmol/L Calcium 9.3 (8.5-10.1) mg/dl POC Ioniz Calcium Angel (1.12-1.32) mmol/l Total Bilirubin 0.9 (0.2-1) mg/dl AST 33 (15-37) U/L ALT 46 (12-78) U/L Alkaline Phosphatase 104 (45-117) U/L Total Creatine Kinase 63 (39-308) U/L CK-MB (CK-2) 1.0 (0.5-3.6) ng/ml CK/CKMB % Calc 1.6 (0-3.0) Troponin I < 0.015 (0-0.045) ng/ml Total Protein 6.9 (6.4-8.2) gm/dl Albumin 3.1 L (3.4-5.0) gm/dl Globulin 3.8 (2.5-4.0) gm/dl Albumin/Globulin Ratio 0.8 L (0.9-2) Beta-Hydroxybutyric Acd (0.2-2.81) mg/dl Procalcitonin 0.07 (0-0.5) ng/ml Urine Color Urine Appearance (Clear) Urine pH (4.5-7.5) Ur Specific [place] (1.000-1.030) Urine Protein (Negative) Urine Glucose (UA) (Negative) Urine Ketones (Negative) Urine Blood (Negative) Urine Nitrite (Negative) Urine Bilirubin (Negative) Urine Urobilinogen (Negative) Ur Leukocyte Esterase (Negative) Urine WBC (Auto) (0-5) /hpf Urine RBC (Auto) (0-4) /hpf U Hyaline Cast (Auto) (0-5) /lpf U Epithel Cells (Auto) (0-5) /lpf Urine Bacteria (Auto) (Negative) Nasal Screen MRSA (PCR) (Negative) Influenza Type A (PCR) (Neg) Influenza Type B (PCR) (Neg) 12/22/18 12/22/18 12/22/18 Range/Units 17:28 17:30 17:34 WBC (4.8-10.8) K/uL RBC (4.7-6.1) M/uL Hgb (14.0-18.0) g/dL POC Hgb (14.0-18.0) g/dl Hct (42-52) % POC Hct (42-52) % MCV (80-100) fL MCH (25-34) pg MCHC (32-36) g/dL RDW Std Deviation (36.4-46.3) fL RDW Coeff of Jose Luis (11.5-14.5) % Plt Count (130-400) K/uL MPV (7.4-10.4) fL Immature Gran % (Auto) % Neut % (Auto) % Lymph % (Auto) % [place] % (Auto) % Eos % (Auto) % Baso % (Auto) % Immature Gran # (Auto) (0.00-0.02) K/uL Neut # (Auto) (1.4-6.5) K/uL Lymph # (Auto) (1.2-3.4) K/uL [place] # (Auto) (0.11-0.59) K/uL Eos # (Auto) (0-0.5) K/uL Baso # (Auto) (0-0.2) K/uL Platelet Estimate (Normal) PT 10.9 (9.0-12.0) Seconds INR 1.1 (0.9-1.1) APTT 26.8 (21.0-31.0) Seconds PTT Ratio 1.0 POC Sodium (135-144) mEq/L Sodium (136-145) mmol/L POC Potassium (3.3-5.0) mEq/L Potassium (3.5-5.1) mmol/L POC Chloride (101-112) mEq/L Chloride (98-107) mmol/L Carbon Dioxide (21-32) mmol/L POC Total CO2 (24-31) mEq/l Anion Gap (3-11) POC Anion Gap (16-25) mmol/L POC BUN (7-18) mg/dl BUN (7-18) mg/dl Creatinine (0.6-1.4) mg/dl POC Creatinine (0.6-1.3) mg/dl Est Cr Clr Drug Dosing ml/min Est GFR ( Amer) Est GFR (Non-Af Amer) BUN/Creatinine Ratio (10-20) Glucose (70-99) mg/dl POC Glucose (70-99) POC Glucose (other) (70-99) mg/dl Estimat Average Glucose mg/dl Hemoglobin A1c (4.5-5.6) % POC Lactic Acid Yair 3.49 H (0.90-1.70) mmol/L Lactate (0.4-2.0) mmol/L Calcium (8.5-10.1) mg/dl POC Ioniz Calcium Angel (1.12-1.32) mmol/l Total Bilirubin (0.2-1) mg/dl AST (15-37) U/L ALT (12-78) U/L Alkaline Phosphatase (45-117) U/L Total Creatine Kinase (39-308) U/L CK-MB (CK-2) (0.5-3.6) ng/ml CK/CKMB % Calc (0-3.0) Troponin I (0-0.045) ng/ml Total Protein (6.4-8.2) gm/dl Albumin (3.4-5.0) gm/dl Globulin (2.5-4.0) gm/dl Albumin/Globulin Ratio (0.9-2) Beta-Hydroxybutyric Acd (0.2-2.81) mg/dl Procalcitonin (0-0.5) ng/ml Urine Color Urine Appearance (Clear) Urine pH (4.5-7.5) Ur Specific [place] (1.000-1.030) Urine Protein (Negative) Urine Glucose (UA) (Negative) Urine Ketones (Negative) Urine Blood (Negative) Urine Nitrite (Negative) Urine Bilirubin (Negative) Urine Urobilinogen (Negative) Ur Leukocyte Esterase (Negative) Urine WBC (Auto) (0-5) /hpf Urine RBC (Auto) (0-4) /hpf U Hyaline Cast (Auto) (0-5) /lpf U Epithel Cells (Auto) (0-5) /lpf Urine Bacteria (Auto) (Negative) Nasal Screen MRSA (PCR) (Negative) Influenza Type A (PCR) Neg for Influ A (Neg) Influenza Type B (PCR) Neg for Influ B (Neg) 12/22/18 12/22/18 12/22/18 Range/Units 17:37 20:52 22:02 WBC (4.8-10.8) K/uL RBC (4.7-6.1) M/uL Hgb (14.0-18.0) g/dL POC Hgb 15.0 (14.0-18.0) g/dl Hct (42-52) % POC Hct 44 (42-52) % MCV (80-100) fL MCH (25-34) pg MCHC (32-36) g/dL RDW Std Deviation (36.4-46.3) fL RDW Coeff of Jose Luis (11.5-14.5) % Plt Count (130-400) K/uL MPV (7.4-10.4) fL Immature Gran % (Auto) % Neut % (Auto) % Lymph % (Auto) % [place] % (Auto) % Eos % (Auto) % Baso % (Auto) % Immature Gran # (Auto) (0.00-0.02) K/uL Neut # (Auto) (1.4-6.5) K/uL Lymph # (Auto) (1.2-3.4) K/uL [place] # (Auto) (0.11-0.59) K/uL Eos # (Auto) (0-0.5) K/uL Baso # (Auto) (0-0.2) K/uL Platelet Estimate (Normal) PT (9.0-12.0) Seconds INR (0.9-1.1) APTT (21.0-31.0) Seconds PTT Ratio POC Sodium 133 L (135-144) mEq/L Sodium (136-145) mmol/L POC Potassium 4.3 (3.3-5.0) mEq/L Potassium (3.5-5.1) mmol/L POC Chloride 100 L (101-112) mEq/L Chloride (98-107) mmol/L Carbon Dioxide (21-32) mmol/L POC Total CO2 20 L (24-31) mEq/l Anion Gap (3-11) POC Anion Gap 18.0 (16-25) mmol/L POC BUN 20 H (7-18) mg/dl BUN (7-18) mg/dl Creatinine (0.6-1.4) mg/dl POC Creatinine 0.8 (0.6-1.3) mg/dl Est Cr Clr Drug Dosing ml/min Est GFR ( Amer) Est GFR (Non-Af Amer) BUN/Creatinine Ratio (10-20) Glucose (70-99) mg/dl POC Glucose 232 H 233 H (70-99) POC Glucose (other) 244 H (70-99) mg/dl Estimat Average Glucose mg/dl Hemoglobin A1c (4.5-5.6) % POC Lactic Acid Yair (0.90-1.70) mmol/L Lactate (0.4-2.0) mmol/L Calcium (8.5-10.1) mg/dl POC Ioniz Calcium Angel 1.11 L (1.12-1.32) mmol/l Total Bilirubin (0.2-1) mg/dl AST (15-37) U/L ALT (12-78) U/L Alkaline Phosphatase (45-117) U/L Total Creatine Kinase (39-308) U/L CK-MB (CK-2) (0.5-3.6) ng/ml CK/CKMB % Calc (0-3.0) Troponin I (0-0.045) ng/ml Total Protein (6.4-8.2) gm/dl Albumin (3.4-5.0) gm/dl Globulin (2.5-4.0) gm/dl Albumin/Globulin Ratio (0.9-2) Beta-Hydroxybutyric Acd (0.2-2.81) mg/dl Procalcitonin (0-0.5) ng/ml Urine Color Urine Appearance (Clear) Urine pH (4.5-7.5) Ur Specific [place] (1.000-1.030) Urine Protein (Negative) Urine Glucose (UA) (Negative) Urine Ketones (Negative) Urine Blood (Negative) Urine Nitrite (Negative) Urine Bilirubin (Negative) Urine Urobilinogen (Negative) Ur Leukocyte Esterase (Negative) Urine WBC (Auto) (0-5) /hpf Urine RBC (Auto) (0-4) /hpf U Hyaline Cast (Auto) (0-5) /lpf U Epithel Cells (Auto) (0-5) /lpf Urine Bacteria (Auto) (Negative) Nasal Screen MRSA (PCR) (Negative) Influenza Type A (PCR) (Neg) Influenza Type B (PCR) (Neg) 12/22/18 12/23/18 12/23/18 Range/Units 22:59 00:10 00:10 WBC (4.8-10.8) K/uL RBC (4.7-6.1) M/uL Hgb (14.0-18.0) g/dL POC Hgb (14.0-18.0) g/dl Hct (42-52) % POC Hct (42-52) % MCV (80-100) fL MCH (25-34) pg MCHC (32-36) g/dL RDW Std Deviation (36.4-46.3) fL RDW Coeff of Jose Luis (11.5-14.5) % Plt Count (130-400) K/uL MPV (7.4-10.4) fL Immature Gran % (Auto) % Neut % (Auto) % Lymph % (Auto) % [place] % (Auto) % Eos % (Auto) % Baso % (Auto) % Immature Gran # (Auto) (0.00-0.02) K/uL Neut # (Auto) (1.4-6.5) K/uL Lymph # (Auto) (1.2-3.4) K/uL [place] # (Auto) (0.11-0.59) K/uL Eos # (Auto) (0-0.5) K/uL Baso # (Auto) (0-0.2) K/uL Platelet Estimate (Normal) PT (9.0-12.0) Seconds INR (0.9-1.1) APTT (21.0-31.0) Seconds PTT Ratio POC Sodium (135-144) mEq/L Sodium (136-145) mmol/L POC Potassium (3.3-5.0) mEq/L Potassium (3.5-5.1) mmol/L POC Chloride (101-112) mEq/L Chloride (98-107) mmol/L Carbon Dioxide (21-32) mmol/L POC Total CO2 (24-31) mEq/l Anion Gap (3-11) POC Anion Gap (16-25) mmol/L POC BUN (7-18) mg/dl BUN (7-18) mg/dl Creatinine (0.6-1.4) mg/dl POC Creatinine (0.6-1.3) mg/dl Est Cr Clr Drug Dosing ml/min Est GFR ( Amer) Est GFR (Non-Af Amer) BUN/Creatinine Ratio (10-20) Glucose (70-99) mg/dl POC Glucose (70-99) POC Glucose (other) (70-99) mg/dl Estimat Average Glucose mg/dl Hemoglobin A1c (4.5-5.6) % POC Lactic Acid Yair (0.90-1.70) mmol/L Lactate 3.0 H* (0.4-2.0) mmol/L Calcium (8.5-10.1) mg/dl POC Ioniz Calcium Angel (1.12-1.32) mmol/l Total Bilirubin (0.2-1) mg/dl AST (15-37) U/L ALT (12-78) U/L Alkaline Phosphatase (45-117) U/L Total Creatine Kinase (39-308) U/L CK-MB (CK-2) (0.5-3.6) ng/ml CK/CKMB % Calc (0-3.0) Troponin I (0-0.045) ng/ml Total Protein (6.4-8.2) gm/dl Albumin (3.4-5.0) gm/dl Globulin (2.5-4.0) gm/dl Albumin/Globulin Ratio (0.9-2) Beta-Hydroxybutyric Acd (0.2-2.81) mg/dl Procalcitonin (0-0.5) ng/ml Urine Color Yellow Urine Appearance Clear (Clear) Urine pH 6.5 (4.5-7.5) Ur Specific [place] 1.036 H (1.000-1.030) Urine Protein Negative (Negative) Urine Glucose (UA) 2+ H (Negative) Urine Ketones Negative (Negative) Urine Blood 1+ H (Negative) Urine Nitrite Negative (Negative) Urine Bilirubin Negative (Negative) Urine Urobilinogen Negative (Negative) Ur Leukocyte Esterase Negative (Negative) Urine WBC (Auto) 0 (0-5) /hpf Urine RBC (Auto) 5-10 H (0-4) /hpf U Hyaline Cast (Auto) 0 (0-5) /lpf U Epithel Cells (Auto) 0-5 (0-5) /lpf Urine Bacteria (Auto) Negative (Negative) Nasal Screen MRSA (PCR) Negative (Negative) Influenza Type A (PCR) (Neg) Influenza Type B (PCR) (Neg) 12/23/18 12/23/18 12/23/18 Range/Units 05:44 05:44 07:33 WBC 9.23 (4.8-10.8) K/uL RBC 4.82 (4.7-6.1) M/uL Hgb 15.5 (14.0-18.0) g/dL POC Hgb (14.0-18.0) g/dl Hct 44.4 (42-52) % POC Hct (42-52) % MCV 92.1 (80-100) fL MCH 32.2 (25-34) pg MCHC 34.9 (32-36) g/dL RDW Std Deviation 42.8 (36.4-46.3) fL RDW Coeff of Jose Luis 12.8 (11.5-14.5) % Plt Count 107 L (130-400) K/uL MPV 9.8 (7.4-10.4) fL Immature Gran % (Auto) 0.2 % Neut % (Auto) 92.1 % Lymph % (Auto) 6.4 % [place] % (Auto) 1.3 % Eos % (Auto) 0.0 % Baso % (Auto) 0.0 % Immature Gran # (Auto) 0.02 (0.00-0.02) K/uL Neut # (Auto) 8.50 H (1.4-6.5) K/uL Lymph # (Auto) 0.59 L (1.2-3.4) K/uL [place] # (Auto) 0.12 (0.11-0.59) K/uL Eos # (Auto) 0.00 (0-0.5) K/uL Baso # (Auto) 0.00 (0-0.2) K/uL Platelet Estimate (Normal) PT (9.0-12.0) Seconds INR (0.9-1.1) APTT (21.0-31.0) Seconds PTT Ratio POC Sodium (135-144) mEq/L Sodium 132 L (136-145) mmol/L POC Potassium (3.3-5.0) mEq/L Potassium 4.0 (3.5-5.1) mmol/L POC Chloride (101-112) mEq/L Chloride 98 (98-107) mmol/L Carbon Dioxide 21 (21-32) mmol/L POC Total CO2 (24-31) mEq/l Anion Gap 13.0 H (3-11) POC Anion Gap (16-25) mmol/L POC BUN (7-18) mg/dl BUN 22 H (7-18) mg/dl Creatinine 1.31 (0.6-1.4) mg/dl POC Creatinine (0.6-1.3) mg/dl Est Cr Clr Drug Dosing 30.7 ml/min Est GFR ( Amer) 56.3 Est GFR (Non-Af Amer) 48.6 BUN/Creatinine Ratio 16.8 (10-20) Glucose 336 H (70-99) mg/dl POC Glucose 331 H (70-99) POC Glucose (other) (70-99) mg/dl Estimat Average Glucose mg/dl Hemoglobin A1c (4.5-5.6) % POC Lactic Acid Yair (0.90-1.70) mmol/L Lactate (0.4-2.0) mmol/L Calcium 9.2 (8.5-10.1) mg/dl POC Ioniz Calcium Angel (1.12-1.32) mmol/l Total Bilirubin (0.2-1) mg/dl AST (15-37) U/L ALT (12-78) U/L Alkaline Phosphatase (45-117) U/L Total Creatine Kinase (39-308) U/L CK-MB (CK-2) (0.5-3.6) ng/ml CK/CKMB % Calc (0-3.0) Troponin I (0-0.045) ng/ml Total Protein (6.4-8.2) gm/dl Albumin (3.4-5.0) gm/dl Globulin (2.5-4.0) gm/dl Albumin/Globulin Ratio (0.9-2) Beta-Hydroxybutyric Acd 5.37 H (0.2-2.81) mg/dl Procalcitonin (0-0.5) ng/ml Urine Color Urine Appearance (Clear) Urine pH (4.5-7.5) Ur Specific [place] (1.000-1.030) Urine Protein (Negative) Urine Glucose (UA) (Negative) Urine Ketones (Negative) Urine Blood (Negative) Urine Nitrite (Negative) Urine Bilirubin (Negative) Urine Urobilinogen (Negative) Ur Leukocyte Esterase (Negative) Urine WBC (Auto) (0-5) /hpf Urine RBC (Auto) (0-4) /hpf U Hyaline Cast (Auto) (0-5) /lpf U Epithel Cells (Auto) (0-5) /lpf Urine Bacteria (Auto) (Negative) Nasal Screen MRSA (PCR) (Negative) Influenza Type A (PCR) (Neg) Influenza Type B (PCR) (Neg) 12/23/18 12/23/18 12/23/18 Range/Units 10:09 11:05 11:39 WBC (4.8-10.8) K/uL RBC (4.7-6.1) M/uL Hgb (14.0-18.0) g/dL POC Hgb (14.0-18.0) g/dl Hct (42-52) % POC Hct (42-52) % MCV (80-100) fL MCH (25-34) pg MCHC (32-36) g/dL RDW Std Deviation (36.4-46.3) fL RDW Coeff of Jose Luis (11.5-14.5) % Plt Count (130-400) K/uL MPV (7.4-10.4) fL Immature Gran % (Auto) % Neut % (Auto) % Lymph % (Auto) % [place] % (Auto) % Eos % (Auto) % Baso % (Auto) % Immature Gran # (Auto) (0.00-0.02) K/uL Neut # (Auto) (1.4-6.5) K/uL Lymph # (Auto) (1.2-3.4) K/uL [place] # (Auto) (0.11-0.59) K/uL Eos # (Auto) (0-0.5) K/uL Baso # (Auto) (0-0.2) K/uL Platelet Estimate (Normal) PT (9.0-12.0) Seconds INR (0.9-1.1) APTT (21.0-31.0) Seconds PTT Ratio POC Sodium (135-144) mEq/L Sodium (136-145) mmol/L POC Potassium (3.3-5.0) mEq/L Potassium (3.5-5.1) mmol/L POC Chloride (101-112) mEq/L Chloride (98-107) mmol/L Carbon Dioxide (21-32) mmol/L POC Total CO2 (24-31) mEq/l Anion Gap (3-11) POC Anion Gap (16-25) mmol/L POC BUN (7-18) mg/dl BUN (7-18) mg/dl Creatinine (0.6-1.4) mg/dl POC Creatinine (0.6-1.3) mg/dl Est Cr Clr Drug Dosing ml/min Est GFR ( Amer) Est GFR (Non-Af Amer) BUN/Creatinine Ratio (10-20) Glucose (70-99) mg/dl POC Glucose 368 H* (70-99) POC Glucose (other) (70-99) mg/dl Estimat Average Glucose 192 mg/dl Hemoglobin A1c 8.3 H (4.5-5.6) % POC Lactic Acid Yair (0.90-1.70) mmol/L Lactate 8.4 H* (0.4-2.0) mmol/L Calcium (8.5-10.1) mg/dl POC Ioniz Calcium Angel (1.12-1.32) mmol/l Total Bilirubin (0.2-1) mg/dl AST (15-37) U/L ALT (12-78) U/L Alkaline Phosphatase (45-117) U/L Total Creatine Kinase (39-308) U/L CK-MB (CK-2) (0.5-3.6) ng/ml CK/CKMB % Calc (0-3.0) Troponin I (0-0.045) ng/ml Total Protein (6.4-8.2) gm/dl Albumin (3.4-5.0) gm/dl Globulin (2.5-4.0) gm/dl Albumin/Globulin Ratio (0.9-2) Beta-Hydroxybutyric Acd (0.2-2.81) mg/dl Procalcitonin (0-0.5) ng/ml Urine Color Urine Appearance (Clear) Urine pH (4.5-7.5) Ur Specific [place] (1.000-1.030) Urine Protein (Negative) Urine Glucose (UA) (Negative) Urine Ketones (Negative) Urine Blood (Negative) Urine Nitrite (Negative) Urine Bilirubin (Negative) Urine Urobilinogen (Negative) Ur Leukocyte Esterase (Negative) Urine WBC (Auto) (0-5) /hpf Urine RBC (Auto) (0-4) /hpf U Hyaline Cast (Auto) (0-5) /lpf U Epithel Cells (Auto) (0-5) /lpf Urine Bacteria (Auto) (Negative) Nasal Screen MRSA (PCR) (Negative) Influenza Type A (PCR) (Neg) Influenza Type B (PCR) (Neg) 12/23/18 12/23/18 12/23/18 Range/Units 11:40 14:37 16:48 WBC (4.8-10.8) K/uL RBC (4.7-6.1) M/uL Hgb (14.0-18.0) g/dL POC Hgb (14.0-18.0) g/dl Hct (42-52) % POC Hct (42-52) % MCV (80-100) fL MCH (25-34) pg MCHC (32-36) g/dL RDW Std Deviation (36.4-46.3) fL RDW Coeff of Jose Luis (11.5-14.5) % Plt Count (130-400) K/uL MPV (7.4-10.4) fL Immature Gran % (Auto) % Neut % (Auto) % Lymph % (Auto) % [place] % (Auto) % Eos % (Auto) % Baso % (Auto) % Immature Gran # (Auto) (0.00-0.02) K/uL Neut # (Auto) (1.4-6.5) K/uL Lymph # (Auto) (1.2-3.4) K/uL [place] # (Auto) (0.11-0.59) K/uL Eos # (Auto) (0-0.5) K/uL Baso # (Auto) (0-0.2) K/uL Platelet Estimate (Normal) PT (9.0-12.0) Seconds INR (0.9-1.1) APTT (21.0-31.0) Seconds PTT Ratio POC Sodium (135-144) mEq/L Sodium (136-145) mmol/L POC Potassium (3.3-5.0) mEq/L Potassium (3.5-5.1) mmol/L POC Chloride (101-112) mEq/L Chloride (98-107) mmol/L Carbon Dioxide (21-32) mmol/L POC Total CO2 (24-31) mEq/l Anion Gap (3-11) POC Anion Gap (16-25) mmol/L POC BUN (7-18) mg/dl BUN (7-18) mg/dl Creatinine (0.6-1.4) mg/dl POC Creatinine (0.6-1.3) mg/dl Est Cr Clr Drug Dosing ml/min Est GFR ( Amer) Est GFR (Non-Af Amer) BUN/Creatinine Ratio (10-20) Glucose (70-99) mg/dl POC Glucose 353 H* 370 H* 334 H (70-99) POC Glucose (other) (70-99) mg/dl Estimat Average Glucose mg/dl Hemoglobin A1c (4.5-5.6) % POC Lactic Acid Yair (0.90-1.70) mmol/L Lactate (0.4-2.0) mmol/L Calcium (8.5-10.1) mg/dl POC Ioniz Calcium Angel (1.12-1.32) mmol/l Total Bilirubin (0.2-1) mg/dl AST (15-37) U/L ALT (12-78) U/L Alkaline Phosphatase (45-117) U/L Total Creatine Kinase (39-308) U/L CK-MB (CK-2) (0.5-3.6) ng/ml CK/CKMB % Calc (0-3.0) Troponin I (0-0.045) ng/ml Total Protein (6.4-8.2) gm/dl Albumin (3.4-5.0) gm/dl Globulin (2.5-4.0) gm/dl Albumin/Globulin Ratio (0.9-2) Beta-Hydroxybutyric Acd (0.2-2.81) mg/dl Procalcitonin (0-0.5) ng/ml Urine Color Urine Appearance (Clear) Urine pH (4.5-7.5) Ur Specific [place] (1.000-1.030) Urine Protein (Negative) Urine Glucose (UA) (Negative) Urine Ketones (Negative) Urine Blood (Negative) Urine Nitrite (Negative) Urine Bilirubin (Negative) Urine Urobilinogen (Negative) Ur Leukocyte Esterase (Negative) Urine WBC (Auto) (0-5) /hpf Urine RBC (Auto) (0-4) /hpf U Hyaline Cast (Auto) (0-5) /lpf U Epithel Cells (Auto) (0-5) /lpf Urine Bacteria (Auto) (Negative) Nasal Screen MRSA (PCR) (Negative) Influenza Type A (PCR) (Neg) Influenza Type B (PCR) (Neg) 12/23/18 12/24/18 12/24/18 Range/Units 20:07 00:23 00:25 WBC (4.8-10.8) K/uL RBC (4.7-6.1) M/uL Hgb (14.0-18.0) g/dL POC Hgb (14.0-18.0) g/dl Hct (42-52) % POC Hct (42-52) % MCV (80-100) fL MCH (25-34) pg MCHC (32-36) g/dL RDW Std Deviation (36.4-46.3) fL RDW Coeff of Jose Luis (11.5-14.5) % Plt Count (130-400) K/uL MPV (7.4-10.4) fL Immature Gran % (Auto) % Neut % (Auto) % Lymph % (Auto) % [place] % (Auto) % Eos % (Auto) % Baso % (Auto) % Immature Gran # (Auto) (0.00-0.02) K/uL Neut # (Auto) (1.4-6.5) K/uL Lymph # (Auto) (1.2-3.4) K/uL [place] # (Auto) (0.11-0.59) K/uL Eos # (Auto) (0-0.5) K/uL Baso # (Auto) (0-0.2) K/uL Platelet Estimate (Normal) PT (9.0-12.0) Seconds INR (0.9-1.1) APTT (21.0-31.0) Seconds PTT Ratio POC Sodium (135-144) mEq/L Sodium (136-145) mmol/L POC Potassium (3.3-5.0) mEq/L Potassium (3.5-5.1) mmol/L POC Chloride (101-112) mEq/L Chloride (98-107) mmol/L Carbon Dioxide (21-32) mmol/L POC Total CO2 (24-31) mEq/l Anion Gap (3-11) POC Anion Gap (16-25) mmol/L POC BUN (7-18) mg/dl BUN (7-18) mg/dl Creatinine (0.6-1.4) mg/dl POC Creatinine (0.6-1.3) mg/dl Est Cr Clr Drug Dosing ml/min Est GFR ( Amer) Est GFR (Non-Af Amer) BUN/Creatinine Ratio (10-20) Glucose (70-99) mg/dl POC Glucose 313 H 314 H 264 H (70-99) POC Glucose (other) (70-99) mg/dl Estimat Average Glucose mg/dl Hemoglobin A1c (4.5-5.6) % POC Lactic Acid Yair (0.90-1.70) mmol/L Lactate (0.4-2.0) mmol/L Calcium (8.5-10.1) mg/dl POC Ioniz Calcium Angel (1.12-1.32) mmol/l Total Bilirubin (0.2-1) mg/dl AST (15-37) U/L ALT (12-78) U/L Alkaline Phosphatase (45-117) U/L Total Creatine Kinase (39-308) U/L CK-MB (CK-2) (0.5-3.6) ng/ml CK/CKMB % Calc (0-3.0) Troponin I (0-0.045) ng/ml Total Protein (6.4-8.2) gm/dl Albumin (3.4-5.0) gm/dl Globulin (2.5-4.0) gm/dl Albumin/Globulin Ratio (0.9-2) Beta-Hydroxybutyric Acd (0.2-2.81) mg/dl Procalcitonin (0-0.5) ng/ml Urine Color Urine Appearance (Clear) Urine pH (4.5-7.5) Ur Specific [place] (1.000-1.030) Urine Protein (Negative) Urine Glucose (UA) (Negative) Urine Ketones (Negative) Urine Blood (Negative) Urine Nitrite (Negative) Urine Bilirubin (Negative) Urine Urobilinogen (Negative) Ur Leukocyte Esterase (Negative) Urine WBC (Auto) (0-5) /hpf Urine RBC (Auto) (0-4) /hpf U Hyaline Cast (Auto) (0-5) /lpf U Epithel Cells (Auto) (0-5) /lpf Urine Bacteria (Auto) (Negative) Nasal Screen MRSA (PCR) (Negative) Influenza Type A (PCR) (Neg) Influenza Type B (PCR) (Neg) 12/24/18 12/24/18 12/24/18 Range/Units 04:06 07:02 07:02 WBC 16.54 H (4.8-10.8) K/uL RBC 4.70 (4.7-6.1) M/uL Hgb 15.3 (14.0-18.0) g/dL POC Hgb (14.0-18.0) g/dl Hct 42.7 (42-52) % POC Hct (42-52) % MCV 90.9 (80-100) fL MCH 32.6 (25-34) pg MCHC 35.8 (32-36) g/dL RDW Std Deviation 42.4 (36.4-46.3) fL RDW Coeff of Jose Luis 12.6 (11.5-14.5) % Plt Count 102 L (130-400) K/uL MPV 9.4 (7.4-10.4) fL Immature Gran % (Auto) 0.3 % Neut % (Auto) 87.5 % Lymph % (Auto) 7.1 % [place] % (Auto) 5.1 % Eos % (Auto) 0.0 % Baso % (Auto) 0.0 % Immature Gran # (Auto) 0.05 H (0.00-0.02) K/uL Neut # (Auto) 14.48 H (1.4-6.5) K/uL Lymph # (Auto) 1.17 L (1.2-3.4) K/uL [place] # (Auto) 0.84 H (0.11-0.59) K/uL Eos # (Auto) 0.00 (0-0.5) K/uL Baso # (Auto) 0.00 (0-0.2) K/uL Platelet Estimate (Normal) PT (9.0-12.0) Seconds INR (0.9-1.1) APTT (21.0-31.0) Seconds PTT Ratio POC Sodium (135-144) mEq/L Sodium (136-145) mmol/L POC Potassium (3.3-5.0) mEq/L Potassium (3.5-5.1) mmol/L POC Chloride (101-112) mEq/L Chloride (98-107) mmol/L Carbon Dioxide (21-32) mmol/L POC Total CO2 (24-31) mEq/l Anion Gap (3-11) POC Anion Gap (16-25) mmol/L POC BUN (7-18) mg/dl BUN (7-18) mg/dl Creatinine (0.6-1.4) mg/dl POC Creatinine (0.6-1.3) mg/dl Est Cr Clr Drug Dosing ml/min Est GFR ( Amer) Est GFR (Non-Af Amer) BUN/Creatinine Ratio (10-20) Glucose (70-99) mg/dl POC Glucose 240 H (70-99) POC Glucose (other) (70-99) mg/dl Estimat Average Glucose mg/dl Hemoglobin A1c (4.5-5.6) % POC Lactic Acid Yair (0.90-1.70) mmol/L Lactate 2.5 H* (0.4-2.0) mmol/L Calcium (8.5-10.1) mg/dl POC Ioniz Calcium Angel (1.12-1.32) mmol/l Total Bilirubin (0.2-1) mg/dl AST (15-37) U/L ALT (12-78) U/L Alkaline Phosphatase (45-117) U/L Total Creatine Kinase (39-308) U/L CK-MB (CK-2) (0.5-3.6) ng/ml CK/CKMB % Calc (0-3.0) Troponin I (0-0.045) ng/ml Total Protein (6.4-8.2) gm/dl Albumin (3.4-5.0) gm/dl Globulin (2.5-4.0) gm/dl Albumin/Globulin Ratio (0.9-2) Beta-Hydroxybutyric Acd (0.2-2.81) mg/dl Procalcitonin (0-0.5) ng/ml Urine Color Urine Appearance (Clear) Urine pH (4.5-7.5) Ur Specific [place] (1.000-1.030) Urine Protein (Negative) Urine Glucose (UA) (Negative) Urine Ketones (Negative) Urine Blood (Negative) Urine Nitrite (Negative) Urine Bilirubin (Negative) Urine Urobilinogen (Negative) Ur Leukocyte Esterase (Negative) Urine WBC (Auto) (0-5) /hpf Urine RBC (Auto) (0-4) /hpf U Hyaline Cast (Auto) (0-5) /lpf U Epithel Cells (Auto) (0-5) /lpf Urine Bacteria (Auto) (Negative) Nasal Screen MRSA (PCR) (Negative) Influenza Type A (PCR) (Neg) Influenza Type B (PCR) (Neg) 12/24/18 12/24/18 12/24/18 Range/Units 07:02 07:32 07:33 WBC (4.8-10.8) K/uL RBC (4.7-6.1) M/uL Hgb (14.0-18.0) g/dL POC Hgb (14.0-18.0) g/dl Hct (42-52) % POC Hct (42-52) % MCV (80-100) fL MCH (25-34) pg MCHC (32-36) g/dL RDW Std Deviation (36.4-46.3) fL RDW Coeff of Jose Luis (11.5-14.5) % Plt Count (130-400) K/uL MPV (7.4-10.4) fL Immature Gran % (Auto) % Neut % (Auto) % Lymph % (Auto) % [place] % (Auto) % Eos % (Auto) % Baso % (Auto) % Immature Gran # (Auto) (0.00-0.02) K/uL Neut # (Auto) (1.4-6.5) K/uL Lymph # (Auto) (1.2-3.4) K/uL [place] # (Auto) (0.11-0.59) K/uL Eos # (Auto) (0-0.5) K/uL Baso # (Auto) (0-0.2) K/uL Platelet Estimate (Normal) PT (9.0-12.0) Seconds INR (0.9-1.1) APTT (21.0-31.0) Seconds PTT Ratio POC Sodium (135-144) mEq/L Sodium 136 (136-145) mmol/L POC Potassium (3.3-5.0) mEq/L Potassium 3.8 (3.5-5.1) mmol/L POC Chloride (101-112) mEq/L Chloride 103 (98-107) mmol/L Carbon Dioxide 24 (21-32) mmol/L POC Total CO2 (24-31) mEq/l Anion Gap 9.0 (3-11) POC Anion Gap (16-25) mmol/L POC BUN (7-18) mg/dl BUN 27 H (7-18) mg/dl Creatinine 1.27 (0.6-1.4) mg/dl POC Creatinine (0.6-1.3) mg/dl Est Cr Clr Drug Dosing 31.6 ml/min Est GFR ( Amer) 58.5 Est GFR (Non-Af Amer) 50.5 BUN/Creatinine Ratio 21.6 H (10-20) Glucose 229 H (70-99) mg/dl POC Glucose 422 H* 349 H (70-99) POC Glucose (other) (70-99) mg/dl Estimat Average Glucose mg/dl Hemoglobin A1c (4.5-5.6) % POC Lactic Acid Yair (0.90-1.70) mmol/L Lactate (0.4-2.0) mmol/L Calcium 9.3 (8.5-10.1) mg/dl POC Ioniz Calcium Angel (1.12-1.32) mmol/l Total Bilirubin (0.2-1) mg/dl AST (15-37) U/L ALT (12-78) U/L Alkaline Phosphatase (45-117) U/L Total Creatine Kinase (39-308) U/L CK-MB (CK-2) (0.5-3.6) ng/ml CK/CKMB % Calc (0-3.0) Troponin I (0-0.045) ng/ml Total Protein (6.4-8.2) gm/dl Albumin (3.4-5.0) gm/dl Globulin (2.5-4.0) gm/dl Albumin/Globulin Ratio (0.9-2) Beta-Hydroxybutyric Acd (0.2-2.81) mg/dl Procalcitonin (0-0.5) ng/ml Urine Color Urine Appearance (Clear) Urine pH (4.5-7.5) Ur Specific [place] (1.000-1.030) Urine Protein (Negative) Urine Glucose (UA) (Negative) Urine Ketones (Negative) Urine Blood (Negative) Urine Nitrite (Negative) Urine Bilirubin (Negative) Urine Urobilinogen (Negative) Ur Leukocyte Esterase (Negative) Urine WBC (Auto) (0-5) /hpf Urine RBC (Auto) (0-4) /hpf U Hyaline Cast (Auto) (0-5) /lpf U Epithel Cells (Auto) (0-5) /lpf Urine Bacteria (Auto) (Negative) Nasal Screen MRSA (PCR) (Negative) Influenza Type A (PCR) (Neg) Influenza Type B (PCR) (Neg) 12/24/18 12/24/18 12/24/18 Range/Units 07:33 07:42 11:37 WBC (4.8-10.8) K/uL RBC (4.7-6.1) M/uL Hgb (14.0-18.0) g/dL POC Hgb (14.0-18.0) g/dl Hct (42-52) % POC Hct (42-52) % MCV (80-100) fL MCH (25-34) pg MCHC (32-36) g/dL RDW Std Deviation (36.4-46.3) fL RDW Coeff of Jose Luis (11.5-14.5) % Plt Count (130-400) K/uL MPV (7.4-10.4) fL Immature Gran % (Auto) % Neut % (Auto) % Lymph % (Auto) % [place] % (Auto) % Eos % (Auto) % Baso % (Auto) % Immature Gran # (Auto) (0.00-0.02) K/uL Neut # (Auto) (1.4-6.5) K/uL Lymph # (Auto) (1.2-3.4) K/uL [place] # (Auto) (0.11-0.59) K/uL Eos # (Auto) (0-0.5) K/uL Baso # (Auto) (0-0.2) K/uL Platelet Estimate (Normal) PT (9.0-12.0) Seconds INR (0.9-1.1) APTT (21.0-31.0) Seconds PTT Ratio POC Sodium (135-144) mEq/L Sodium (136-145) mmol/L POC Potassium (3.3-5.0) mEq/L Potassium (3.5-5.1) mmol/L POC Chloride (101-112) mEq/L Chloride (98-107) mmol/L Carbon Dioxide (21-32) mmol/L POC Total CO2 (24-31) mEq/l Anion Gap (3-11) POC Anion Gap (16-25) mmol/L POC BUN (7-18) mg/dl BUN (7-18) mg/dl Creatinine (0.6-1.4) mg/dl POC Creatinine (0.6-1.3) mg/dl Est Cr Clr Drug Dosing ml/min Est GFR ( Amer) Est GFR (Non-Af Amer) BUN/Creatinine Ratio (10-20) Glucose (70-99) mg/dl POC Glucose 245 H 230 H 255 H (70-99) POC Glucose (other) (70-99) mg/dl Estimat Average Glucose mg/dl Hemoglobin A1c (4.5-5.6) % POC Lactic Acid Yair (0.90-1.70) mmol/L Lactate (0.4-2.0) mmol/L Calcium (8.5-10.1) mg/dl POC Ioniz Calcium Angel (1.12-1.32) mmol/l Total Bilirubin (0.2-1) mg/dl AST (15-37) U/L ALT (12-78) U/L Alkaline Phosphatase (45-117) U/L Total Creatine Kinase (39-308) U/L CK-MB (CK-2) (0.5-3.6) ng/ml CK/CKMB % Calc (0-3.0) Troponin I (0-0.045) ng/ml Total Protein (6.4-8.2) gm/dl Albumin (3.4-5.0) gm/dl Globulin (2.5-4.0) gm/dl Albumin/Globulin Ratio (0.9-2) Beta-Hydroxybutyric Acd (0.2-2.81) mg/dl Procalcitonin (0-0.5) ng/ml Urine Color Urine Appearance (Clear) Urine pH (4.5-7.5) Ur Specific [place] (1.000-1.030) Urine Protein (Negative) Urine Glucose (UA) (Negative) Urine Ketones (Negative) Urine Blood (Negative) Urine Nitrite (Negative) Urine Bilirubin (Negative) Urine Urobilinogen (Negative) Ur Leukocyte Esterase (Negative) Urine WBC (Auto) (0-5) /hpf Urine RBC (Auto) (0-4) /hpf U Hyaline Cast (Auto) (0-5) /lpf U Epithel Cells (Auto) (0-5) /lpf Urine Bacteria (Auto) (Negative) Nasal Screen MRSA (PCR) (Negative) Influenza Type A (PCR) (Neg) Influenza Type B (PCR) (Neg) 12/24/18 12/24/18 Range/Units 16:42 20:28 WBC (4.8-10.8) K/uL RBC (4.7-6.1) M/uL Hgb (14.0-18.0) g/dL POC Hgb (14.0-18.0) g/dl Hct (42-52) % POC Hct (42-52) % MCV (80-100) fL MCH (25-34) pg MCHC (32-36) g/dL RDW Std Deviation (36.4-46.3) fL RDW Coeff of Jose Luis (11.5-14.5) % Plt Count (130-400) K/uL MPV (7.4-10.4) fL Immature Gran % (Auto) % Neut % (Auto) % Lymph % (Auto) % [place] % (Auto) % Eos % (Auto) % Baso % (Auto) % Immature Gran # (Auto) (0.00-0.02) K/uL Neut # (Auto) (1.4-6.5) K/uL Lymph # (Auto) (1.2-3.4) K/uL [place] # (Auto) (0.11-0.59) K/uL Eos # (Auto) (0-0.5) K/uL Baso # (Auto) (0-0.2) K/uL Platelet Estimate (Normal) PT (9.0-12.0) Seconds INR (0.9-1.1) APTT (21.0-31.0) Seconds PTT Ratio POC Sodium (135-144) mEq/L Sodium (136-145) mmol/L POC Potassium (3.3-5.0) mEq/L Potassium (3.5-5.1) mmol/L POC Chloride (101-112) mEq/L Chloride (98-107) mmol/L Carbon Dioxide (21-32) mmol/L POC Total CO2 (24-31) mEq/l Anion Gap (3-11) POC Anion Gap (16-25) mmol/L POC BUN (7-18) mg/dl BUN (7-18) mg/dl Creatinine (0.6-1.4) mg/dl POC Creatinine (0.6-1.3) mg/dl Est Cr Clr Drug Dosing ml/min Est GFR ( Amer) Est GFR (Non-Af Amer) BUN/Creatinine Ratio (10-20) Glucose (70-99) mg/dl POC Glucose 219 H 227 H (70-99) POC Glucose (other) (70-99) mg/dl Estimat Average Glucose mg/dl Hemoglobin A1c (4.5-5.6) % POC Lactic Acid Yair (0.90-1.70) mmol/L Lactate (0.4-2.0) mmol/L Calcium (8.5-10.1) mg/dl POC Ioniz Calcium Angel (1.12-1.32) mmol/l Total Bilirubin (0.2-1) mg/dl AST (15-37) U/L ALT (12-78) U/L Alkaline Phosphatase (45-117) U/L Total Creatine Kinase (39-308) U/L CK-MB (CK-2) (0.5-3.6) ng/ml CK/CKMB % Calc (0-3.0) Troponin I (0-0.045) ng/ml Total Protein (6.4-8.2) gm/dl Albumin (3.4-5.0) gm/dl Globulin (2.5-4.0) gm/dl Albumin/Globulin Ratio (0.9-2) Beta-Hydroxybutyric Acd (0.2-2.81) mg/dl Procalcitonin (0-0.5) ng/ml Urine Color Urine Appearance (Clear) Urine pH (4.5-7.5) Ur Specific [place] (1.000-1.030) Urine Protein (Negative) Urine Glucose (UA) (Negative) Urine Ketones (Negative) Urine Blood (Negative) Urine Nitrite (Negative) Urine Bilirubin (Negative) Urine Urobilinogen (Negative) Ur Leukocyte Esterase (Negative) Urine WBC (Auto) (0-5) /hpf Urine RBC (Auto) (0-4) /hpf U Hyaline Cast (Auto) (0-5) /lpf U Epithel Cells (Auto) (0-5) /lpf Urine Bacteria (Auto) (Negative) Nasal Screen MRSA (PCR) (Negative) Influenza Type A (PCR) (Neg) Influenza Type B (PCR) (Neg) Imaging Data Radiologist's Impression: XR chest 1V portable HISTORY: 88 years-old Male Sepsis acute sepsis COMPARISON: Chest radiographs 12/02/2018, CTA chest 02/04/2017, chest radiograph 07/03/2018. TECHNIQUE: Portable AP view of the chest FINDINGS: Cardiac mediastinal and hilar silhouettes are unchanged. Calcification the thoracic aortic arch. Chronic interstitial coarsening without pneumothorax, pleural effusion or overt pulmonary edema. Degenerative changes of the shoulders and spine. IMPRESSION: 1. No acute process. 2. Chronic interstitial lung disease. The above report was generated using voice recognition software. It may contain grammatical, syntax or spelling errors. Electronically signed by: Ulisses Sanchez M.D. 12/22/2018 6:[address] angio chest PE protocol CT DOSE: 196.51 mGy.cm HISTORY: 88 years-old Male with PE. Acute chest pain and shortness of breath TECHNIQUE: Multiple CTA images of the chest were obtained after the intravenous administration of 116 ml Optiray 320. Coronal and sagittal MIPS were obtained from the axial data set and were submitted for review. All measurements were obtained according to NASCET criteria. A dose lowering technique was utilized adhering to the principles of ALARA. COMPARISON: Radiograph of same day, CT chest 01/25/2017. FINDINGS: CTA: Moderate multichamber cardiac enlargement. No pericardial effusion. Coronary arterial calcifications are noted. No thoracic aortic aneurysm or dissection. Patency of the imaged great vessels. Dilation of the main pulmonary arteries suggest probable pulmonary arterial hypertension. Dilation of the pulmonary arterial tree is limited secondary to respiratory motion artifact. Arterial tree is opacified to the subsegmental branches, however the distal lobar, segmental and subsegmental branches are not well seen secondary to respiratory motion artifact. No central pulmonary emboli identified. CT CHEST: Subcentimeter thyroid nodules are noted. Nonspecific subcarinal adenopathy, with nodes measuring up to 1.4 x 1.9 cm, previously 1.1 x 1.6 cm. Trace left pleural effusion. Bibasilar predominant subpleural reticulation with subpleural groundglass densities, honeycombing and traction bronchiectasis. Bilateral bronchial wall thickening with associated tracheobronchial secretions. Evaluation of the lung parenchyma is limited secondary to respiratory motion artifact. No pneumothorax. No definite focal airspace consolidation to suggest acute pneumonitis. Mild thickening of the interlobular septa. No new suspicious pulmonary nodules or masses identified. No acute process of the imaged upper abdomen. Soft tissues are within normal limits. Bones appear to be intact. No suspicious lytic or blastic bony lesions. Degenerative changes of the shoulders and spine. IMPRESSION: 1. Limited exam secondary to respiratory motion artifact. No central pulmonary embolus identified. 2. Cardiomegaly with mild thickening of the intralobular septa, possibly re flecting mild pulmonary edema. 3. Trace left pleural effusion. 4. 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 5. Tracheobronchial secretions with mucous plugging seen most prominently within the basal right lower lobe. 6. Mild subcarinal adenopathy, likely reactive. The above report was generated using voice recognition software. It may contain grammatical, syntax or spelling errors. Electronically signed by: Ulisses Sanchez M.D. 12/22/2018 7:17 PM ECG Data Attestation: I personally reviewed and interpreted this ECG as follows: Indication: other (flu sx) Rate (beats per minute): 117 Rhythm: sinus tachycardia Findings: + LBBB; no ST depression and no ST elevation Comparison ECG Date: from (06/22/18) Change: no significant change Blood Pressure Blood Pressure Findings: Normal blood pressure MDM Narrative This is an 88-year-old male who presents emergency department complaining of flulike symptoms. Patient's lactate was also found to be elevated. He was given a normal saline bolus and started on Zosyn. I did discuss the case with the hospitalist service who agreed to admit the patient. Patient was in agreement with the treatment plan. Impression & Plan Elevated serum creatinine, Urinary tract infection, Hypertension, Paroxysmal atrial fibrillation, Pneumonia Discharge Plan Visit Data *Final* Discharge Date/Time: 12/22/18 21:18 Chief Complaint: Flu Like Symptoms Stated Complaint: FLU LIKE SX, NAUSEA, VOMITING ED Provider: Joel Briceño Discharge Problem: Elevated serum creatinine, Urinary tract infection, Hypertension, Paroxysmal atrial fibrillation, Pneumonia Patient Disposition: Admitted As Inpatient Discharge Instructions Interventions: ED Discharge Assessment Last Done: 12/22/18 21:18 The scribe's documentation has been prepared under my direction and personally reviewed by me in its entirety. I confirm that the note above accurately reflects all work, treatment, procedures, and medical decision making performed by me.
[2018-12-25] MEDS: LEVALBUTEROL HCL 1.25 MG/3 ML NEB NEB SCH ×3 (02:13→13:42)
[2018-12-25 06:37] LABS: Hematocrit (blood only) 39.8 % (42-52); Immature Granulocytes # (auto) 0.02 K/uL (0.00-0.02); Immature Granulocytes % (auto) 0.2 %; Lymphocytes # (auto) 1.29 K/uL (1.2-3.4); Mean Corpuscular Hgb Conc 35.2 g/dL (32-36); Mean Corpuscular Volume 91.3 fL (80-100); Mean Platelet Volume 9.2 fL (7.4-10.4); Monocytes # (auto) 0.74 K/uL (0.11-0.59); Monocytes % (auto) 5.7 %; Neutrophils # (auto) 10.86 K/uL (1.4-6.5); Neutrophils % (auto) 84.1 %; Platelet Count 106 K/uL (130-400); RDW Coefficient of Variation 12.8 % (11.5-14.5); RDW Standard Deviation 43.4 fL (36.4-46.3); Red Blood Count 4.36 M/uL (4.7-6.1); White Blood Count 12.91 K/uL (4.8-10.8)
--- NOTE | 2018-12-25 06:37 | CT Scan Report ---
CT head/brain wo con CLINICAL HISTORY: 88 years-old Male presenting with change of mental status. TECHNIQUE: Multidetector CT imaging of the head was performed without the use of intravenous contrast . IV contrast: None. One or more dose lowering techniques were used consistent with the principles of ALARA (as low as reasonably achievable), including automatic exposure control, mA or kV adjustment t o individual patient size, and/or use of iterative reconstruction. COMPARISON: 12/01/2016 and MRI from 01/12/2017. CT DOSE (mGy.cm): The estimated cumulative dose is 729.78 mGycm. 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 Proportional ventricular and sulcal prominence, likely age-related parenchymal volume loss. No hemorr mehdi. Periventricular and subcortical white matter hypoattenuation, nonspecific but likely indicative of chronic small vessel ischemic change. 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 No acute territorial infarct. No mass effect or midline shift. No extra-axial fluid collection. Extensiv e mucosal thickening of ethmoid air cells. Calvarium intact. Intracranial atherosclerosis noted. IMPRESSION: 1. No significant change compared to the prior study. No acute intracranial abnormality. Electronically signed by: Errol Parada M.D. 12/25/2018 6:36 AM
[2018-12-25 07:08] LABS: BUN Creatinine Ratio 23.9 (10-20); Calcium 8.8 mg/dl (8.5-10.1); Creatinine Clr Calc Pharmacy 33.2 ml/min; Est GFR (Non-African American) 53.5; Potassium 3.9 mmol/L (3.5-5.1)
[2018-12-25] MEDS: LACTOBACILLUS ACIDOPHILUS (FLORANEX) TAB PO SCH ×2 (08:04→12:21)
[2018-12-25] MEDS: PIPERACILLIN/TAZOBACTAM 3.375 GM in DEXTROSE 5% 100 ML IV SCH (08:04)
[2018-12-25] MEDS: MULTIVITAMIN TAB PO SCH (08:05)
[2018-12-25] MEDS: ASPIRIN 81 MG ECTAB PO SCH (08:05)
[2018-12-25] MEDS: METOPROLOL TARTRATE 50 MG TAB PO SCH (08:05)
[2018-12-25] MEDS: DOXAZosin MESYLATE TAB 2 MG TAB PO SCH (08:05)
[2018-12-25] MEDS: BUDESONIDE/FORMOTEROL FUMARATE 80/4.5 60 PUFFS/INHALER INH SCH (08:05)
[2018-12-25] MEDS: predniSONE 20 MG TAB PO SCH (08:05)
[2018-12-25] MEDS: OMEGA-3 (PURIFIED FISH OIL) 1 GM CAP PO SCH (08:05)
[2018-12-25] MEDS: CALCIUM 600MG + VIT D 400 IU TAB PO SCH (08:05)
[2018-12-25] MEDS: FOLIC ACID 400 MCG TAB PO SCH (08:05)
[2018-12-25] MEDS: MAGNESIUM OXIDE 400 MG TAB PO SCH (08:05)
[2018-12-25] MEDS: DUTASTERIDE 0.5 MG PO SCH (08:05)
[2018-12-25] MEDS: CHOLECALCIFEROL 1,000 UNITS TAB PO SCH (08:05)
[2018-12-25] MEDS: ISOSORBIDE MONO EXTENDED REL 60 MG TABCR PO SCH (08:06)
[2018-12-25] MEDS: INSULIN ASPART 100 UNITS/ML 3 ML PEN SC SCH ×2 (08:06→12:22)
[2018-12-25] MEDS: HEPARIN SOD 5,000 UNIT/0.5 ML VIAL SQ SCH (08:07)
[2018-12-25] MEDS ORDERED: NovoLIN-N (NPH) PER UNIT CHARGE SQ ONE ×2 (09:00→09:15)
[2018-12-25] MEDS ORDERED: DUTASTERIDE 0.5 MG PO SCH (09:00)
[2018-12-25] MEDS ORDERED: SODIUM CHLORIDE 0.9% 1000ML 250 ML IV ONE (12:00)
[2018-12-25] MEDS ORDERED: IOVERSOL 100ml IV PRN (14:34)
--- NOTE | 2018-12-25 14:47 | CT Scan Report ---
CT abd pelvis oral and IV con CLINICAL HISTORY: 88 years-old Male presenting with Prior pancreatitis. TECHNIQUE: Multidetector CT of the abdomen and pelvis was performed after the administration of oral and intravenous contrast. IV contrast: 94 mL of Optiray 320. One or more dose lowering techniques wer e used consistent with the principles of ALARA (as low as reasonably achievable), including automatic exposure control, mA or kV adjustment to individual patient size, and/or use of iterative reconstruc tion. COMPARISON: 07/01/2018 and MRCP from 08/12/2018. CT DOSE (mGy.cm): The estimated cumulative dose is 341.59 mGycm. FINDINGS: Multiple Resaw Operator topogram: Extra scoliosis of the lumbar spine. Left lower quadrant colostomy. Vasectomy clips n oted. Lung bases: Mild multichamber enlargement of the heart. Coronary artery calcification. No pericardial or pleural effusion. Extensive bronchiectasis and subpleural reticular opacities similar prior exam. No new focal opacity. Liver: Normal morphology. No liver lesion. Patent hepatic vasculature. Biliary: No intrahepatic or extrahepatic biliary ductal dilatation. Normal gallbladder. Pancreas: Moderate parenchymal atrophy. No peripancreatic fat infiltration. Spleen: Normal. Adrenal glands: Normal. Kidneys and ureters: Well-defined hypodensities in the bilateral kidneys likely simple cysts. Nonobst ructing bilateral nephrolithiasis. Calculi are largely punctate. No hydronephrosis. Ureters nondisten ded. Bladder: Significant bladder wall irregularity with bladder diverticula noted along the right lateral margin. Circumferential trabeculation. Pelvic organs: Prostate enlargement likely secondary to benign prostatic hyperplasia. Bowel: Diverticulosis of the residual upper rectum-distal sigmoid colon, which forms a Portillo pouch. The patient is status post sigmoidectomy with a left lower quadrant descending colostomy. Extensive pancolonic diverticulosis without wall thickening or pericolonic inflammatory change. The appendix is normal. No bowel obstruction. Peritoneal cavity: No free fluid or intraperitoneal gas. Lymph nodes: No enlarged lymph nodes in the abdomen or pelvis. Vasculature: Atherosclerosis of the normal caliber abdominal aorta. IVC patent. Abdominal wall: Postsurgical changes of the midline infra umbilical abdominal wall. Clips along the l eft inguinal canal may relate to vasectomy. Musculoskeletal: Degenerative changes of the spine. IMPRESSION: 1. Postsurgical changes of sigmoidectomy and Portillo's pouch with a left lower quadrant descending c olostomy. No bowel obstruction or other complication. 2. Pancolonic diverticulosis without evidence of diverticulitis. 3. No convincing evidence of acute intra-abdominal pathology on the current exam. 4. Bladder trabeculation likely relates to chronic bladder outlet obstruction in the setting of pros tatomegaly. 5. Nonobstructing bilateral nephrolithiasis. 6. 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 Electronically signed by: Errol Parada M.D. 12/25/2018 2:46 PM
== END 2018-12-25 15:45 | DRG 871 ==
LOC: ED 17:15 → SUATTDRO 20:36 → 2W 20:36